=== PATIENT | male | born 1945 | race African-American/Black ===

== ENCOUNTER 2018-06-29 10:48 | Inpatient (IN) ==
[2018-06-29] MEDS ORDERED: Ampicillin/Sulbactam Inj 3 GM in Sodium Chloride 0.9% Inj 100 ML IV.SIG ONE (11:18)
[2018-06-29] MEDS ORDERED: Ketorolac Inj 30 MG/ML (IVP) Vial IV.PUSH ONE (11:18)
--- NOTE | 2018-06-29 11:39 | ED ---
HPI General Chief Complaint: Neck Pain/Injury Stated Complaint: facial swelling Time Seen by Provider: 06/29/18 11:12 Source: patient Mode of arrival: ambulatory Limitations: no limitations History of Present Illness HPI Narrative: 73-year-old male the presents to the ED for evaluation of left- sided neck swelling and jaw swelling. Patient has had this for about 3 days now. Per patient has had some fever. Per family has been somewhat lethargic and not eating well. He does have a history of diabetes. No history of injury or trauma. Family is concerned because the left side of the face especially the neck is getting more swollen. He has not seen anybody for this. Not taken the antibiotics. Pain per patient is 6 out of 10 especially with opening and closing the jaw. No history of this in the past. No chest pain or shortness of breath. No nausea or vomiting. Related Data Home Medications Medication Instructions Recorded Confirmed amlodipine-benazepril 1 cap PO DAILY 06/29/18 06/29/18 aspirin [Aspir-Low] 81 mg PO DAILY 06/29/18 06/29/18 atorvastatin 10 mg PO QPM 06/29/18 06/29/18 donepezil 5 mg PO QPM 06/29/18 06/29/18 empagliflozin-linagliptin 1 tab PO QAM 06/29/18 06/29/18 [Glyxambi] ergocalciferol (vitamin D2) 50,000 unit PO QWEEK 06/29/18 06/29/18 [Vitamin D2] iron fum,ps cmplx-vit C-niacin 1 cap PO DAILY 06/29/18 06/29/18 [Integra] pantoprazole 40 mg PO DAILY 06/29/18 06/29/18 paroxetine HCl 30 mg PO DAILY 06/29/18 06/29/18 pioglitazone 45 mg PO DAILY 06/29/18 06/29/18 Allergies Allergy/AdvReac Type Severity Reaction Status Date / Time No Known Allergies Allergy Unverified 06/29/18 11:11 Review of Systems ROS: all other systems reviewed are negative [facility], [facility] Medical History Medical History Depression (Acute) Diabetes mellitus (Acute) Gastric ulcer (Acute) HTN (hypertension) (Acute) History of endoscopy (Acute) Surgical History Surgical History History of arthroscopy of right knee (Acute) Hx of colonoscopy (Acute) Family History Family History Father Glaucoma Type 2 diabetes mellitus HTN (hypertension) PVD (peripheral vascular disease) Mother Glaucoma Type 2 diabetes mellitus HTN (hypertension) Social History Social History Substance History: No History of Abuse Smoking Status: Never smoker How Often Do You Have a Drink Containing Alcohol: 2 to 3 times a week Recent Travel in [facility] within the Last 8 Weeks: No Recent Out of Country Travel within the Last 8 Weeks: No Immunization History Tetanus Immunization: >5 Years Hx Influenza Vaccine This Season: Yes Exam Narrative Exam Narrative: GENERAL: Well appearing SKIN: Focused skin assessment warm/dry. HEAD: Atraumatic. Normocephalic. EYES: Pupils equal and round. No scleral icterus. No injection or drainage. ENT: No nasal bleeding or discharge. Mucous membranes pink and moist. Tongue is midline. No blood deviation. Patient does have what appears to be soft tissue swelling on the left side of the cheek as well as on the lower aspect of the mandible. Patient has what appears to be 4 cm induration on the area just below the left mandible. Very hard to touch. Tender. Skin itself appears to be intact. Appears to be deeper. Some lymphadenopathy noted. Inside the mouth there does appear to be some purulence coming out of the left mid cheek and patient does appear to have pertinent gland tenderness to palpation on the left side. NECK: Trachea midline. No JVD. CARDIOVASCULAR: Regular rate and rhythm. No murmur appreciated. RESPIRATORY: No accessory muscle use. Clear to auscultation. Breath sounds equal bilaterally. GASTROINTESTINAL: Abdomen soft, non-tender, nondistended. Hepatic and splenic margins not palpable. MUSCULOSKELETAL: No obvious deformities. No clubbing. No cyanosis. No edema. NEUROLOGICAL: Awake and alert. No obvious cranial nerve deficits. Motor grossly within normal limits. Normal speech. PSYCHIATRIC: Appropriate mood and affect; insight and judgment normal. Course Initial Documented Vital Signs Temperature 98.4 F 06/29/18 10:53 Pulse Rate 92 H 06/29/18 10:53 Respiratory Rate 20 06/29/18 10:53 Blood Pressure 120/63 06/29/18 10:53 Pulse Oximetry 97 06/29/18 10:53 Last Documented Vital Signs Temperature 98.4 F 06/29/18 10:53 Pulse Rate 70 08/29/18 14:00 Respiratory Rate 18 06/29/18 14:00 Blood Pressure 105/58 L 06/29/18 14:00 Pulse Oximetry 96 06/29/18 14:00 Medical Decision Making MDM Narrative Medical decision making narrative: 73-year-old male the presents to the ED for evaluation of left-sided neck pain and swelling. Patient was properly examined and was found to have signs and symptoms consistent with appears to be possible abscess versus Parotid gland infection versus sialoadenitis. Labs and imaging order. IV antibiotics started, given Toradol. Labs and imaging showed what appears to be a peritonsillar abscess as well as a submandibular abscess. Vital cell count highly limited in what appears to be acute kidney injury until this could be chronic secondary to the patient's diabetes. Because of the 2 abscesses as well as the significantly elevated white blood cell count of the recommend admission for further evaluation and treatment. Patient and family agree with this. Case discussed with Dr. Beal agrees admission to his service. My attending Dr. Hernandez was made aware of findings and agrees with plan. Medical Screen Exam Complete: Yes Emergency Medical Condition: Yes Differential Diagnosis Differential Diagnosis: Parotitis versus cellulitis versus dental abscess Medical Records Medical records reviewed: Yes I reviewed the patient's medical records. Lab Data Lab results reviewed: Yes I reviewed the patient's lab results. Result diagrams: 06/29/18 11:28 06/29/18 11:28 Lab Results 06/29/18 06/29/18 06/29/18 Range/Units 11:28 11:28 11:28 WBC 21.1 H (4.0-11.0) th/mm3 RBC 3.31 L (4.50-5.90) mil/mm3 Hgb 11.0 L (13.0-17.0) gm/dL Hct 31.6 L (39.0-51.0) % MCV 95.4 (80.0-100.0) fL MCH 33.3 (27.0-34.0) pg MCHC 34.9 (32.0-36.0) % RDW 19.7 H (11.6-17.2) % Plt Count 793 H (150-450) th/mm3 MPV 9.7 (7.0-11.0) fL Neut % (Auto) 90.2 H (16.0-70.0) % Lymph % (Auto) 4.1 L (9.0-44.0) % [place] % (Auto) 5.3 (0.0-8.0) % Eos % (Auto) 0.2 (0.0-4.0) % Baso % (Auto) 0.2 (0.0-2.0) % Neut # (Auto) 19.1 H (1.8-7.7) th/mm3 Lymph # (Auto) 0.9 L (1.0-4.8) th/mm3 [place] # (Auto) 1.1 H (0.0-0.9) th/mm3 Eos # (Auto) 0.0 (0.0-0.4) th/mm3 Baso # (Auto) 0.0 (0.0-0.2) th/mm3 WBC Differential . Differential Comment Auto diff final Sodium 137 (136-145) meq/L Potassium 4.1 (3.5-5.1) meq/L Chloride 102 (98-107) meq/L Carbon Dioxide 22.4 (21.0-32.0) meq/L Anion Gap 13 (5-15) meq/L BUN 43 H (7-18) mg/dL Creatinine 1.42 H (0.60-1.30) mg/dL Estimated GFR 59 L (>89) mL/min Random Glucose 291 H (74-106) mg/dL Lactic Acid 1.1 (0.4-2.0) mmol/L Calcium 9.8 (8.5-10.1) mg/dL Imaging Data Attestation: I personally reviewed and interpreted this imaging study as follows : Radiologist's impression: Face CT 06/29/18 11:18 CONCLUSION: 1. There is an elongated rim-enhancing collection involving the left nasopharyngeal and oropharyngeal region characteristic of a peritonsillar abscess extending over several centimeters. 2. Is also an abscess is suspected in the region of the left submandibular gland with adjacent reactive adenopathy. Discharge Plan Discharge Disposition Patient Disposition: 30 Still Patient Discharge Details Diagnosis: Abscess, peritonsillar, Abscess of submandibular gland, BILL (acute kidney injury) Physicians Team ED Provider: Gold Bob ED Midlevel Provider: Luis San Primary Care Provider: Jag Cruz III Attending Provider: Navjot Beal Other Providers: Ran Sofia Discharge Interventions Interventions: Vital Signs Last Done: 06/29/18 14:00 Status ED Status: Admitted Patient
[2018-06-29 12:11] LABS: Baso % (Auto) 0.2 % (0.0-2.0); Eos % (Auto) 0.2 % (0.0-4.0); Hematocrit 31.6 % (39.0-51.0); Lymph # (Auto) 0.9 th/mm3 (1.0-4.8); Lymph % (Auto) 4.1 % (9.0-44.0); Mean Corpuscular HGB Conc 34.9 % (32.0-36.0); Mean Corpuscular Hemoglobin 33.3 pg (27.0-34.0); Mean Corpuscular Volume 95.4 fL (80.0-100.0); Mean Platelet Volume 9.7 fL (7.0-11.0); Mono # (Auto) 1.1 th/mm3 (0.0-0.9); Mono % (Auto) 5.3 % (0.0-8.0); Neut # (Auto) 19.1 th/mm3 (1.8-7.7); Neut % (Auto) 90.2 % (16.0-70.0); Platelet Count 793 th/mm3 (150-450); Red Blood Count 3.31 mil/mm3 (4.50-5.90); Red Cell Distribution Width 19.7 % (11.6-17.2); White Blood Count 21.1 th/mm3 (4.0-11.0)
[2018-06-29 12:44] LABS: Calcium 9.8 mg/dL (8.5-10.1); Carbon Dioxide 22.4 meq/L (21.0-32.0); Potassium 4.1 meq/L (3.5-5.1)
[2018-06-29] MEDS ORDERED: Sod Chloride 0.9% Inj 1,000 ML IV.CONT ONE (12:46)
--- NOTE | 2018-06-29 13:22 | CT ---
EXAM DATE: 06/29/2018 1:15 PM EDT AGE/SEX: 73 years / Male INDICATIONS: Left facial swelling with bad tooth CLINICAL DATA: This is the patient's initial encounter. Patient reports that signs and symptoms have been present for 2 days and indicates a pain score of 6/10. MEDICAL/SURGICAL HISTORY: Diabetes. Hypertension. None. RADIATION DOSE: 7.56 CTDI (mGy) COMPARISON: No prior exams available for comparison. TECHNIQUE: Contiguous images in the axial and coronal planes were obtained using helical multirow de tector technique with 70 ml Omnipaque 350 (iohexol) nonionic water-soluble contrast as a single exam dose. Using automated exposure control and adjustment of the mA and/or kV according to patient size , radiation dose was kept as low as reasonably achievable to obtain optimal diagnostic quality images . DICOM format image data is available electronically for review and comparison. FINDINGS: Beginning in the nasopharyngeal soft tissues and extending inferiorly on the left along the tonsillar pillar is a rim-enhancing loculated fluid collection measuring up to 4.3 cm in AP dimension and 2.2 cm in transverse dimension most concerning for a peritonsillar abscess. There is also identified amador ration of the subcutaneous tissues in the left perimandibular region, reactive subcentimeter submenta l lymph nodes, and a hypodense rim-enhancing collection in the left submandibular gland measuring 2 x 1.2 cm in transverse and AP dimension. There are also more prominent level 2A nodes seen up to 1.1 c m in short axis dimension. Paranasal sinuses are well aerated. There is slight relative narrowing and deviation of the oropharyngeal airway to the right of midline seen best on axial image 51 of series 2. There is streak artifact from dental fillings. CONCLUSION: 1. There is an elongated rim-enhancing collection involving the left nasopharyngeal and oropharyngea l region characteristic of a peritonsillar abscess extending over several centimeters. 2. Is also an abscess is suspected in the region of the left submandibular gland with adjacent react gay adenopathy. Electronically signed by: Jenaro Spencer MD 06/29/2018 1:20 PM EDT
[2018-06-29] MEDS ORDERED: Acetaminophen 325 MG Tablet PO PRN (14:07)
[2018-06-29] MEDS ORDERED: Bisacodyl 10 MG Supp RECTAL PRN (14:07)
[2018-06-29] MEDS: Sod Chloride 0.9% Inj 1,000 ML IV.CONT SCH ×2 (14:25→23:09)
--- NOTE | 2018-06-29 14:30 | P.HPIM ---
History of Present Illness Service: [facility] Primary Care Physician: Jag Cruz III, MD History of Present Illness: This 73-year-old with past history of type 2 diabetes, gastric ulcer, hypertension, and depression. He is presenting to the clinic today 4 days of feeling ill. On 06/25/18 started to develop a sore throat and feeling mildly feverish. Then 06/26/18 his fever greatly worsened and he started to develop some swelling in the back of throat. He reports that before any of this happened he did have some tooth pain on the left side of his face. Over the next several days the swelling in his throat as well as his face continued to worsen. Never became nauseated or vomiting. Started developing difficulty with swallowing, he started becoming mildly confused especially yesterday. Started feeling very weak over the last couple days and unwilling to get out of bed. Has been sweating profusely and feeling feverish. Denies any chills. His voice has become raspy over the last several days. This morning was 1 of the rare times that he actually ate some food over the last couple days. Throughout this process is been getting worsening headaches as well that he attributed to migraines, as well as feeling very sleepy and fatigued throughout the whole timeframe. Of note on the ED CT of the face is concerning for mandibular abscess as well as peritonsillar abscess. - Diagnosis (1) Peritonsillar abscess (2) Mandibular abscess (3) HTN (hypertension) (4) Type 2 diabetes mellitus (5) Depression Inpatient Certification: I certify that the inpatient services were ordered in accordance with Medicare regulations governing the order. This includes certification that hospital inpatient services are reasonable and necessary and in the case of services not specified as inpatient-only under 42 CFR 419.22(n), that they are appropriately provided as inpatient services in accordance to with the 2-midnight benchmark under 43 CFR 412.3(e) Estimated Total Length of Stay (Days): 5 Plans for Post Hospital Care: Home Review of Systems Constitutional: Reports anorexia, Reports body ache(s), Reports excessive sweating, Reports fatigue, Reports fever(s), Reports headache(s), Reports lack of energy, Reports malaise, Reports weakness, Denies chills, Denies increased appetite Eyes: Denies blurry vision, Denies change in vision, Denies double vision, Denies discharge Ears, Nose, Mouth, and Throat: Reports change in voice, Reports dental pain, Reports difficulty swallowing, Reports ear pain, Reports facial pain, Reports headache(s), Reports hoarseness, Reports neck pain, Reports sore throat, Reports throat swelling, Denies bleeding gums, Denies dry mouth, Denies nasal discharge, Denies sinus pain, Denies sinus pressure, Denies tongue swelling Cardiovascular: Reports chest pain (more anxiety type pain), Denies fainting, Denies irregular heart rhythm, Denies radiating jaw, neck or arm pain, Denies rapid, pounding, or irregular heartbeat, Denies shortness of breath with activity Respiratory: Reports cough, Denies pain with cough, Denies shortness of breath, Denies wheezing Gastrointestinal: Reports difficulty swallowing, Reports pain with swallowing, Denies abdominal pain, Denies black, tarry stools, Denies bloating, Denies constipation, Denies nausea, Denies vomiting Musculoskeletal: Denies abnormal walking Neurologic: Reports abnormal speech (due to swelling), Denies abnormal hearing, Denies abnormal walking, Denies loss of vision, Denies numbness, Denies radiating pain, Denies restless legs Psychiatric: Reports anxiety, Reports depression PMFSH - History History Provided By: Patient, Significant Other - Medical History Medical History: Medical History (Last Updated 06/29/18 @ 14:26 by Navjot Beal MD) Depression Diabetes mellitus Gastric ulcer HTN (hypertension) History of endoscopy - Surgical History Surgical History: Surgical History (Last Reviewed 06/29/18 @ 14:27 by Navjot Beal MD) History of arthroscopy of right knee Hx of colonoscopy - Family History Family History: Family History (Last Updated 06/29/18 @ 14:28 by Navjot Beal MD) Father Glaucoma Type 2 diabetes mellitus HTN (hypertension) PVD (peripheral vascular disease) Mother Glaucoma Type 2 diabetes mellitus HTN (hypertension) - Tobacco History Smoking Status: Never smoker - Alcohol History How Often Do You Have a Drink Containing Alcohol: 2 to 3 times a week - Substance Use History Substance History: No History of Abuse - Travel History Recent Travel in the [place] Within the Last 8 Weeks: No Recent Travel Out of the Country Within the Last 8 Weeks: No - Immunization History Tetanus Immunization: >5 Years Hx Influenza Vaccine This Season: Yes Medications and Allergies Active Medications: Active Medications Acetaminophen (Tylenol) 650 mg PO Q4H PRN PRN Reason: Temp > 100.4 Al Hydroxide/Mg Hydroxide (Milk Of Magnesia Liq) 30 ml PO Q12H PRN PRN Reason: Mild Constipation Aspirin (Ecotrin) 81 mg PO DAILY SALAZAR Atorvastatin Calcium (Lipitor) 10 mg PO QPM [facility] Bisacodyl (Dulcolax Supp) 10 mg RECTAL DAILY PRN PRN Reason: SEVERE CONSITIPATION Clonidine HCl (Catapres) 0.1 mg PO Q6H PRN PRN Reason: SEE LABEL COMMENTS Sodium Chloride (Ns Inj) 1,000 mls @ 75 mls/hr IV.CONT .[id number] [facility] Lactulose (Lactulose Liq) 30 ml PO DAILY PRN PRN Reason: SEVERE CONSITIPATION Non-Formulary Medication (Amlodipine-Benazepril [Amlodipine-Benazepril]) 1 cap PO DAILY [facility] Non-Formulary Medication (Paroxetine Hcl [Paroxetine Hcl]) 30 mg PO DAILY [facility] Ondansetron HCl (Zofran Inj) 4 mg IV.PUSH Q6H PRN PRN Reason: NAUSEA OR VOMITING Pantoprazole Sodium (Protonix) 40 mg PO DAILY [facility] Senna/Docusate Sodium (Anna-Colace) 1 tab PO BID [facility] Sennosides (Senokot) 17.2 mg PO Q12H PRN PRN Reason: Moderate Constipation Temazepam (Restoril) 15 mg PO HS PRN PRN Reason: INSOMNIA Allergies Allergy/AdvReac Type Severity Reaction Status Date / Time No Known Allergies Allergy Unverified 06/29/18 11:11 Home Medications Medication Instructions Recorded Confirmed Type amlodipine-benazepril 1 cap PO DAILY 06/29/18 06/29/18 History aspirin [Aspir-Low] 81 mg PO DAILY 06/29/18 06/29/18 History atorvastatin 10 mg PO QPM 06/29/18 06/29/18 History donepezil 5 mg PO QPM 06/29/18 06/29/18 History empagliflozin-linagliptin 1 tab PO QAM 06/29/18 06/29/18 History [Glyxambi] ergocalciferol (vitamin D2) 50,000 unit PO QWEEK 06/29/18 06/29/18 History [Vitamin D2] iron fum,ps cmplx-vit C-niacin 1 cap PO DAILY 06/29/18 06/29/18 History [Integra] pantoprazole 40 mg PO DAILY 06/29/18 06/29/18 History paroxetine HCl 30 mg PO DAILY 06/29/18 06/29/18 History pioglitazone 45 mg PO DAILY 06/29/18 06/29/18 History Exam Vital signs: Vital Signs 06/29/18 10:53 06/29/18 11:16 06/29/18 12:57 Temperature 98.4 F Pulse Rate 92 H 85 80 Respiratory Rate 20 18 18 Blood Pressure 120/63 126/63 114/59 L Pulse Oximetry 97 98 98 Intake & Output 06/28/18 06/29/18 06/29/18 18:59 06:59 18:59 Intake Total 1100 / 1100 Balance 1100 / 1100 Weight 74.843 kg Intake: IV 1100 / 1100 NS Inj 1,000 ML @ 1000 mls/hr 1000 / 1000 IV.CONT ONCE ONE Rx#:[id number] Unasyn Inj 3 GM In NS Inj 100 100 / 100 ML @ 200 mls/hr IV.SIG ONCE ONE Rx#:[id number] - Constitutional no acute distress, thin, cooperative - Routine HEENT Exam Head: Present: normocephalic, atraumatic Eye: Present: EOMI, PERRL. Absent: periorbital ecchymosis, periorbital swelling ENT: Present: mucous membranes moist, external ear normal, TM's clear bilaterally - Detailed ENT Exam Oropharynx: Present: post pharyngeal edema, post pharyngeal erythema. Absent: drooling Oral mucosa: Present: moist Tonsil: Left tonsillar exudate, Left peritonsillar mass, Bilateral tonsillar erythema Dentition: Present: dental caries, dental tenderness, gingival enlargement - Routine Neck Exam Present: supple, full ROM, swelling (madibular swelling), trachea midline - Routine Chest/Breast/Axilla Exam Chest wall: Absent: tenderness Axillae: Absent: lymphadenopathy, mass, tenderness - Routine Respiratory Exam Present: CTA bilaterally. Absent: accessory muscle use, wheezes, distant breath sounds - Routine Cardiovascular Exam Present: RRR. Absent: murmur - Routine Abdominal Exam Present: soft, normoactive bowel sounds. Absent: tenderness, distended - Routine Extremities Exam Present: full ROM, pulses intact, normal capillary refill. Absent: cyanosis, clubbing, edema, calf tenderness, Jarvis's sign, joint swelling - Routine Skin Exam Present: intact, dry, scars. Absent: rash - Routine Neurological Exam Present: alert, oriented X3, CN II-XII intact. Absent: altered mental status Results - Labs CBC & Chem 7: 06/29/18 11:28 06/29/18 11:28 Labs: Short CBC 06/29/18 Range/Units 11:28 WBC 21.1 H (4.0-11.0) th/mm3 Hgb 11.0 L (13.0-17.0) gm/dL Hct 31.6 L (39.0-51.0) % Plt Count 793 H (150-450) th/mm3 BMP 06/29/18 11:28 Sodium 137 Potassium 4.1 Chloride 102 Carbon Dioxide 22.4 BUN 43 H Creatinine 1.42 H Calcium 9.8 - Imaging Impressions Face CT 06/29/18 11:18 CONCLUSION: 1. There is an elongated rim-enhancing collection involving the left nasopharyngeal and oropharyngeal region characteristic of a peritonsillar abscess extending over several centimeters. 2. Is also an abscess is suspected in the region of the left submandibular gland with adjacent reactive adenopathy. Caprini VTE Risk Assessment Caprini VTE Risk Assessment: Moderate/High Risk (score >= 2) Caprini Risk Assessment Model: Point Value = 1 Point Value = 2 Point Value = 3 Point Value = 5 Age 41-60 Minor surgery BMI > 25 kg/m2 Swollen legs Varicose veins or History of unexplained or recurrent spontaneous Oral contraceptives or hormone replacement Sepsis (< 1 month) Serious lung disease, including pneumonia (< 1 month) Abnormal pulmonary function Acute myocardial infarction Congestive heart failure (< 1 month) History of inflammatory bowel disease Medical patient at bed rest Age 61-74 Arthroscopic surgery Major open surgery (> 45 min) Laparoscopic surgery (> 45 min) Malignancy Confined to bed (> 72 hours) Immobilizing plaster cast Central venous access Age >= 75 History of VTE Family history of VTE Factor V Leiden Prothrombin [id number] Lupus anticoagulant Anticardiolipin antibodies Elevated serum homocysteine Heparin-induced thrombocytopenia Other congenital or acquired thrombophilia Stroke (< 1 month) Elective arthroplasty Hip, pelvis, or leg fracture Acute spinal cord injury (< 1 month) Prophylaxis Regimen: Total Risk Factor Score Risk Level Prophylaxis Regimen 0-1 Low Early ambulation 2 Moderate Order ONE of the following: *Sequential Compression Device (SCD) *Heparin 5000 units SQ BID 3-4 Higher Order ONE of the following medications: *Heparin 5000 units SQ TID *Enoxaparin/Lovenox 40 mg SQ daily (WT < 150 kg, CrCl > 30 mL/min) *Enoxaparin/Lovenox 30 mg SQ daily (WT < 150 kg, CrCl > 10-29 mL/min) *Enoxaparin/Lovenox 30 mg SQ BID (WT < 150 kg, CrCl > 30 mL/min) AND/OR *Sequential Compression Device (SCD) 5 or more Highest Order ONE of the following medications: *Heparin 5000 units SQ TID (Preferred with Epidurals) *Enoxaparin/Lovenox 40 mg SQ daily (WT < 150 kg, CrCl > 30 mL/min) *Enoxaparin/Lovenox 30 mg SQ daily (WT < 150 kg, CrCl > 10-29 mL/min) *Enoxaparin/Lovenox 30 mg SQ BID (WT < 150 kg, CrCl > 30 mL/min) AND *Sequential Compression Device (SCD) Assessment and Plan - Assessment (1) Peritonsillar abscess Code(s): J36 - Peritonsillar abscess Status: Acute (2) Mandibular abscess Code(s): M27.2 - Inflammatory conditions of jaws Status: Acute (3) HTN (hypertension) Code(s): I10 - Essential (primary) hypertension Status: Chronic (4) Type 2 diabetes mellitus Code(s): E11.9 - Type 2 diabetes mellitus without complications Status: Chronic (5) Depression Code(s): F32.9 - Major depressive disorder, single episode, unspecified Status : Chronic - Plan This 73-year-old with past history of type 2 diabetes, gastric ulcer, hypertension, and depression. Being admitted for mandibular abscess and peritonsillar abscess. 1. Peritonsillar and mandibular abscess -Per report above CT showing both peritonsillar and mandibular abscesses. -Consulted ENT, recommendations appreciated -We will continue Augmentin at this time -Following wound cultures -Following blood cultures -Monitoring labs 2. Leukocytosis -White blood cell count elevated at 21.1 -Vitals within normal limits -Lactic acid is 1.1 within normal limits -Antibiotics as above -Continue to monitor patient's vitals -Continue to monitor labs 3. Type 2 diabetes -Holding home medications -Place on insulin sliding scale -Glucose monitoring per protocol 4. Hypertension -Continue home medication of amlodipine-benazepril -Clonidine per protocol 5. Gastric Ulcer -Continue Protonix 6. 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
[2018-06-29] MEDS ORDERED: Dextrose 50% in Water 50 ML Vial IV.PUSH PRN (14:34)
[2018-06-29] MEDS: Insulin NovoLOG Aspart Correctional Sugar Inj SQ SCH ×2 (17:50→21:46)
[2018-06-29] MEDS: Ampicillin/Sulbactam Inj 3 GM in Sodium Chloride 0.9% Inj 100 ML IV.SIG SCH ×2 (17:50→23:08)
[2018-06-29] MEDS ORDERED: Temazepam 15 MG Capsule PO PRN (21:00)
[2018-06-29] MEDS: Senna/Docusate Sodium 8.6/50 MG Tablet PO SCH (21:45)
[2018-06-29] MEDS: Acetaminophen 325 MG Tablet PO PRN (23:07)
[2018-06-30 05:44] LABS: Baso % (Auto) 0.3 % (0.0-2.0); Eos # (Auto) 0.1 th/mm3 (0.0-0.4); Eos % (Auto) 0.6 % (0.0-4.0); Hematocrit 30.9 % (39.0-51.0); Hemoglobin 10.1 gm/dL (13.0-17.0); Lymph # (Auto) 1.3 th/mm3 (1.0-4.8); Lymph % (Auto) 7.5 % (9.0-44.0); Mean Corpuscular HGB Conc 32.8 % (32.0-36.0); Mean Corpuscular Hemoglobin 31.2 pg (27.0-34.0); Mean Platelet Volume 9.1 fL (7.0-11.0); Neut # (Auto) 14.7 th/mm3 (1.8-7.7); Neut % (Auto) 85.6 % (16.0-70.0); Platelet Count 749 th/mm3 (150-450); Red Blood Count 3.25 mil/mm3 (4.50-5.90); Red Cell Distribution Width 19.6 % (11.6-17.2); White Blood Count 17.2 th/mm3 (4.0-11.0)
[2018-06-30 06:24] LABS: Alanine Aminotransferase 18 U/L (12-78); Alkaline Phosphatase 85 U/L (45-117); Anion Gap 12 meq/L (5-15); Aspartate Aminotransferase 34 U/L (15-37); Blood Urea Nitrogen 32 mg/dL (7-18); Calcium 9.3 mg/dL (8.5-10.1); Carbon Dioxide 21.6 meq/L (21.0-32.0); Chloride 110 meq/L (98-107); Glomerular Filtration Rate Greater Than 89 mL/min (>89); Glucose,Random 154 mg/dL (74-106); Potassium 3.8 meq/L (3.5-5.1); Sodium 144 meq/L (136-145); Total Protein 7.5 g/dL (6.4-8.2)
[2018-06-30] MEDS: Sod Chloride 0.9% Inj 1,000 ML IV.CONT SCH ×2 (06:30→17:55)
[2018-06-30] MEDS: Ampicillin/Sulbactam Inj 3 GM in Sodium Chloride 0.9% Inj 100 ML IV.SIG SCH ×4 (06:31→23:52)
[2018-06-30] MEDS: Insulin NovoLOG Aspart Correctional Sugar Inj SQ SCH ×4 (08:51→22:52)
[2018-06-30] MEDS: Lisinopril 20 MG Tablet PO SCH (08:51)
[2018-06-30] MEDS: Acetaminophen 325 MG Tablet PO PRN ×3 (08:51→22:51)
[2018-06-30] MEDS: Senna/Docusate Sodium 8.6/50 MG Tablet PO SCH ×2 (08:53→22:51)
[2018-06-30] MEDS: amLODIPine 5 MG Tablet PO SCH (08:53)
--- NOTE | 2018-06-30 12:11 | P.PN ---
Subjective Interval history: Nursing denies any deterioration since last night. She is thinks the swelling has progressed to the right side. Patient's daughter says that he has had tooth pain prior to admission, patient is to his lower back molars in terms of his pain. Physical Exam Vital signs: Vital Signs 06/29/18 12:57 06/29/18 14:00 06/29/18 16:02 Temperature Pulse Rate 80 70 72 Respiratory Rate 18 18 20 Blood Pressure 114/59 L 105/58 L 126/61 Pulse Oximetry 98 96 96 06/29/18 18:00 06/29/18 20:00 06/30/18 00:00 Temperature 97.9 F 98.5 F 97.4 F L Pulse Rate 81 82 74 Respiratory Rate 20 18 18 Blood Pressure 143/65 H 126/59 L 132/62 Pulse Oximetry 97 93 L 93 L 06/30/18 04:00 06/30/18 08:00 Temperature 97.3 F L 98.5 F Pulse Rate 76 74 Respiratory Rate 18 20 Blood Pressure 136/66 135/61 Pulse Oximetry 92 L 94 L Intake & Output 06/29/18 06/30/18 06/30/18 18:59 06:59 18:59 Intake Total 2200 / 2200 100 / 100 100 / 100 Balance 2200 / 2200 100 / 100 100 / 100 Weight 68.1 kg 68.6 kg Intake: IV 2200 / 2200 100 / 100 100 / 100 NS Inj 1,000 ML @ 75 mls/hr IV. 1999 / 1999 CONT .[id number] SAL[facility]AR Rx#:[id number] Unasyn Inj 3 GM In NS Inj 100 200 / 200 100 / 100 100 / 100 ML @ 200 mls/hr IV.SIG Q6H [facility] Rx#:[id number] Other: # Voids 0 Weight On Admission 68.1 kg Narrative: Has partial trismus when I tried to actively open his jaw Has poor dentition No follow odor noted, No obvious abscess within oral cavity visualized on my examination Results - Labs CBC & Chem 7: 06/30/18 04:42 06/30/18 04:42 Laboratory Results - last 24 hr 06/29/18 06/29/18 06/29/18 11:28 11:28 17:41 WBC 21.1 H RBC 3.31 L Hgb 11.0 L Hct 31.6 L MCV 95.4 MCH 33.3 MCHC 34.9 RDW 19.7 H Plt Count 793 H MPV 9.7 Neut % (Auto) 90.2 H Lymph % (Auto) 4.1 L Bledsoe % (Auto) 5.3 Eos % (Auto) 0.2 Baso % (Auto) 0.2 Neut # (Auto) 19.1 H Lymph # (Auto) 0.9 L Bledsoe # (Auto) 1.1 H Eos # (Auto) 0.0 Baso # (Auto) 0.0 WBC Differential . Differential Comment Auto diff final Sodium 137 Potassium 4.1 Chloride 102 Carbon Dioxide 22.4 Anion Gap 13 BUN 43 H Creatinine 1.42 H Estimated GFR 59 L POC Glucose 191 H Random Glucose 291 H Calcium 9.8 Total Bilirubin AST ALT Alkaline Phosphatase Total Protein Albumin 06/29/18 06/30/18 06/30/18 20:40 04:42 04:42 WBC 17.2 H RBC 3.25 L Hgb 10.1 L Hct 30.9 L MCV 95.0 MCH 31.2 MCHC 32.8 RDW 19.6 H Plt Count 749 H MPV 9.1 Neut % (Auto) 85.6 H Lymph % (Auto) 7.5 L Bledsoe % (Auto) 6.0 Eos % (Auto) 0.6 Baso % (Auto) 0.3 Neut # (Auto) 14.7 H Lymph # (Auto) 1.3 Bledsoe # (Auto) 1.0 H Eos # (Auto) 0.1 Baso # (Auto) 0.0 WBC Differential . Differential Comment Auto diff final Sodium 144 Potassium 3.8 Chloride 110 H D Carbon Dioxide 21.6 Anion Gap 12 BUN 32 H Creatinine 0.97 Estimated GFR Greater than 89 POC Glucose 174 H Random Glucose 154 H D Calcium 9.3 Total Bilirubin 1.3 H AST 34 ALT 18 Alkaline Phosphatase 85 Total Protein 7.5 Albumin 3.0 L 06/30/18 06/30/18 08:19 11:48 WBC RBC Hgb Hct MCV MCH MCHC RDW Plt Count MPV Neut % (Auto) Lymph % (Auto) Bledsoe % (Auto) Eos % (Auto) Baso % (Auto) Neut # (Auto) Lymph # (Auto) Bledsoe # (Auto) Eos # (Auto) Baso # (Auto) WBC Differential Differential Comment Sodium Potassium Chloride Carbon Dioxide Anion Gap BUN Creatinine Estimated GFR POC Glucose 173 H 174 H Random Glucose Calcium Total Bilirubin AST ALT Alkaline Phosphatase Total Protein Albumin Microbiology 06/29/18 11:28 Blood - Peripheral Aerobic Blood Culture - Preliminary No growth in 1 day 06/29/18 11:28 Blood - Peripheral Anaerobic Blood Culture - Preliminary No growth in 1 day 06/29/18 11:28 Blood - Peripheral Aerobic Blood Culture - Preliminary No growth in 1 day 06/29/18 11:28 Blood - Peripheral Anaerobic Blood Culture - Preliminary No growth in 1 day - Imaging Impressions Face CT 06/29/18 11:18 CONCLUSION: 1. There is an elongated rim-enhancing collection involving the left nasopharyngeal and oropharyngeal region characteristic of a peritonsillar abscess extending over several centimeters. 2. Is also an abscess is suspected in the region of the left submandibular gland with adjacent reactive adenopathy. Assessment and Plan - Assessment (1) Peritonsillar abscess Code(s): J36 - Peritonsillar abscess Status: Acute (2) Mandibular abscess Code(s): M27.2 - Inflammatory conditions of jaws Status: Acute (3) HTN (hypertension) Code(s): I10 - Essential (primary) hypertension Status: Chronic (4) Type 2 diabetes mellitus Code(s): E11.9 - Type 2 diabetes mellitus without complications Status: Chronic (5) Depression Code(s): F32.9 - Major depressive disorder, single episode, unspecified Status : Chronic - Plan This 73-year-old with past history of type 2 diabetes, gastric ulcer, hypertension, and depression. Being admitted for mandibular abscess and peritonsillar abscess. sepsis 2/2 to peritonsillar and mandibular abscess -Per report above CT showing both peritonsillar and mandibular abscesses. -ENT following, discussed case with oral maxillofacial surgery, will evaluate the patient. 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
--- NOTE | 2018-06-30 12:13 | MB ---
cc: Ran Sofia MD DATE: 06/30/2018 CHIEF COMPLAINT: Left facial infection, left peritonsillar abscess. HISTORY OF PRESENT ILLNESS: The patient is a pleasant 73-year-old male with a 1-year history of dental issues. He has been having difficulty having his dental plate to fit correctly. It has been causing a lot of irritation. He states that he has not worn it in the recent months. However, he still obviously has dental concerns. He presented to the hospital yesterday with 4 days of feeling ill with a sore throat and tooth pain and pressure on the left side of the face. Over the next several days the swelling in the throat and his face continued to worsen, and his voice became raspy. In the emergency room, a CT of face was concerning for peritonsillar abscess and possible early submandibular abscess. He was admitted with IV antibiotics. The patient notes he had no shortness of breath overnight and was talking freely without any effort. He feels as if the mass is relatively unchanged since yesterday's antibiotics were started. PHYSICAL EXAMINATION: On examination, there is obvious swelling near the left mandible angle on the left side of the face. He also had some fullness in the left peritonsillar area, and on flexible fiberoptic laryngoscopy, however, the airway was noted to be patent and his vocal cords noted to be mobile. ASSESSMENT AND PLAN: Infection, left peritonsillar area and left submandibular area. CAT scan shows both peritonsillar abscess and early small left mandibular abscess. Of note, the floor of the mouth is currently soft. Wound cultures are being followed after the patient's multiple abscesses to consider infectious disease consult. Also, with his chronic dental issues, recommend oral surgery evaluating the patient for possible odontogenic origin. Furthermore, the patient has a history of diabetes, but if possible Decadron will judiciously be will be able to decrease the swelling of the left face. He will likely need a sliding scale of insulin if he is able to get the Decadron, if this is cleared by the home team. The patient will likely need numerous days of IV antibiotics as per his history and the amount of the swelling both in the mouth and in the neck. Appreciate oral surgery input, as well as appreciate the coordinate care of the team. Ran Sofia MD PCC/pw/ll , 07:13 AM , 07:23 AM
--- NOTE | 2018-06-30 14:55 | P.CON ---
History of Present Illness Service: Oral & Maxillofacial Surgery Consult date: 06/30/18 Requesting Physician: Juan Carlos Baker Reason for Consult: Peritonsillar abscess Primary Care Provider: Jag Cruz III, MD Chief Complaint: Left facial and neck swelling History of Present Illness: 73-year-old male with a history of depression, diabetes mellitus, hypertension presents for evaluation of a left submandibular and peritonsillar swelling. Patient reports that approximately 3 days ago when he woke up he suffered from a sore throat. He continued to progress with left sided facial swelling and difficulty swallowing and he sought care yesterday at [facility]. A CT scan was obtained which showed peritonsillar abscess extending to the submandibular region and he was admitted for IV antibiotic therapy. An oral & maxillofacial surgery consult was ordered to evaluate for an odontogenic origin. The patient reports he is having difficulty swallowing but denies any difficulty breathing. He reports that since the antibiotic therapy was started yesterday the swelling improved. He does note some intermittent swelling extending to the right side of his neck. He noted in the past some intermittent sensitivity in his dentition but denies any significant pain at this time. He denies any numbness in his jaw. Review of Systems Constitutional: Reports fatigue Eyes: Denies change in vision Ears, Nose, Mouth, and Throat: Reports bad breath, Reports change in voice, Reports difficulty swallowing, Reports facial pain, Reports headache(s), Reports pain with swallowing, Reports sore throat, Reports throat swelling Cardiovascular: Denies chest pain Respiratory: Denies shortness of breath Gastrointestinal: Denies abdominal pain PMFSH - History History Provided By: Patient, Family Member - Medical History Medical History: Medical History (Last Updated 06/29/18 @ 14:26 by Navjot Beal MD) Depression Diabetes mellitus Gastric ulcer HTN (hypertension) History of endoscopy - Surgical History Surgical History: Surgical History (Last Reviewed 06/29/18 @ 14:27 by Navjot Beal MD) History of arthroscopy of right knee Hx of colonoscopy - Family History Family History: Family History (Last Updated 06/29/18 @ 14:28 by Navjot Beal MD) Father Glaucoma Type 2 diabetes mellitus HTN (hypertension) PVD (peripheral vascular disease) Mother Glaucoma Type 2 diabetes mellitus HTN (hypertension) - Tobacco History Second Hand Smoke Exposure: No Smoking Status: Never smoker - Alcohol History How Often Do You Have a Drink Containing Alcohol: Monthly or less - Substance Use History Substance History: No History of Abuse - Travel History Recent Travel in the [place] Within the Last 8 Weeks: No Recent Travel Out of the Country Within the Last 8 Weeks: No - Immunization History Tetanus Immunization: >5 Years Hx Influenza Vaccine This Season: Yes Medications and Allergies Active Medications: Active Medications Acetaminophen (Tylenol) 650 mg PO Q4H PRN PRN Reason: fever or headache Last Admin: 06/30/18 13:41 Dose: 650 mg Al Hydroxide/Mg Hydroxide (Milk Of Magnesia Liq) 30 ml PO Q12H PRN PRN Reason: Mild Constipation Amlodipine Besylate (Norvasc) 5 mg PO DAILY [facility] Last Admin: 06/30/18 08:53 Dose: 5 mg Aspirin (Ecotrin) 81 mg PO DAILY [facility] Last Admin: 06/30/18 08:52 Dose: 81 mg Atorvastatin Calcium (Lipitor) 10 mg PO DAILY@1800 [facility] Last Admin: 06/29/18 17:50 Dose: 10 mg Bisacodyl (Dulcolax Supp) 10 mg RECTAL DAILY PRN PRN Reason: SEVERE CONSITIPATION Clonidine HCl (Catapres) 0.1 mg PO Q6H PRN PRN Reason: SEE LABEL COMMENTS Dextrose (D50w Vial) 50 ml IV.PUSH UNSCH PRN PRN Reason: PER HYPOGLYCEMIA PROTOCOL Glucagon (Glucagon Inj) 1 mg OTHER PRN PRN PRN Reason: for Hypoglycemia Protocol Sodium Chloride (Ns Inj) 1,000 mls @ 75 mls/hr IV.CONT .[id number] [facility] Last Admin: 06/30/18 06:30 Dose: Not Given Ampicillin Sodium/Sulbactam (Sodium 3 gm/ Sodium Chloride) 100 mls @ 200 mls/ hr IV.SIG Q6H [facility] Last Infusion: 06/30/18 13:30 Dose: Infused Insulin Aspart (Novolog Insulin Correctional Sugar Inj) 0 unit SQ ACHS [facility]; Protocol Last Admin: 06/30/18 13:00 Dose: 1 unit Lactulose (Lactulose Liq) 30 ml PO DAILY PRN PRN Reason: SEVERE CONSITIPATION Lisinopril (Prinivil) 40 mg PO DAILY [facility] Last Admin: 06/30/18 08:51 Dose: 40 mg Ondansetron HCl (Zofran Inj) 4 mg IV.PUSH Q6H PRN PRN Reason: NAUSEA OR VOMITING Pantoprazole Sodium (Protonix) 40 mg PO DAILY [facility] Last Admin: 06/30/18 08:53 Dose: 40 mg Paroxetine HCl (Paxil) 30 mg PO DAILY [facility] Last Admin: 06/30/18 08:53 Dose: 30 mg Senna/Docusate Sodium (Anna-Colace) 1 tab PO BID [facility] Last Admin: 06/30/18 08:53 Dose: Not Given Sennosides (Senokot) 17.2 mg PO Q12H PRN PRN Reason: Moderate Constipation Allergies Allergy/AdvReac Type Severity Reaction Status Date / Time No Known Allergies Allergy Unverified 06/29/18 11:11 Home Medications Medication Instructions Recorded Confirmed Type amlodipine-benazepril 1 cap PO DAILY 06/29/18 06/29/18 History aspirin [Aspir-Low] 81 mg PO DAILY 06/29/18 06/29/18 History atorvastatin 10 mg PO QPM 06/29/18 06/29/18 History donepezil 5 mg PO QPM 06/29/18 06/29/18 History empagliflozin-linagliptin 1 tab PO QAM 06/29/18 06/29/18 History [Glyxambi] ergocalciferol (vitamin D2) 50,000 unit PO QWEEK 06/29/18 06/29/18 History [Vitamin D2] iron fum,ps cmplx-vit C-niacin 1 cap PO DAILY 06/29/18 06/29/18 History [Integra] pantoprazole 40 mg PO DAILY 06/29/18 06/29/18 History paroxetine HCl 30 mg PO DAILY 06/29/18 06/29/18 History pioglitazone 45 mg PO DAILY 06/29/18 06/29/18 History Physical Exam Vital signs: Vital Signs 06/29/18 16:02 06/29/18 18:00 06/29/18 20:00 Temperature 97.9 F 98.5 F Pulse Rate 72 81 82 Respiratory Rate 20 20 18 Blood Pressure 126/61 143/65 H 126/59 L Pulse Oximetry 96 97 93 L 06/30/18 00:00 06/30/18 04:00 06/30/18 08:00 Temperature 97.4 F L 97.3 F L 98.5 F Pulse Rate 74 76 74 Respiratory Rate 18 18 20 Blood Pressure 132/62 136/66 135/61 Pulse Oximetry 93 L 92 L 94 L 06/30/18 13:45 Temperature 99.5 F Pulse Rate 82 Respiratory Rate 20 Blood Pressure 135/72 Pulse Oximetry 94 L Intake & Output 06/29/18 06/30/18 06/30/18 18:59 06:59 18:59 Intake Total 2200 / 2200 100 / 100 200 / 200 Balance 2200 / 2200 100 / 100 200 / 200 Weight 68.1 kg 68.6 kg Intake: IV 2200 / 2200 100 / 100 200 / 200 NS Inj 1,000 ML @ 75 mls/hr IV. 1999 CONT .[id number] [facility]AR Rx#:[id number] Unasyn Inj 3 GM In NS Inj 100 200 / 200 100 / 100 200 / 200 ML @ 200 mls/hr IV.SIG Q6H SALAZAR Rx#:[id number] Other: # Voids 0 Weight On Admission 68.1 kg Narrative: General: Well-developed, comfortable and in no apparent distress. Neurological: Alert and oriented to person, place, and time. CNV intact bilaterally. HEENT: Head/Face: Left facial edema adjacent to the mandible and submandibular region, no overlying erythema of the skin. JUMANA ~25-30 mm. Eyes: EOMI. Oral Cavity/Oropharynx: Mucosa pink and well hydrated. Fair oral hygiene. Mandibular dentition in good repair without increased sensitivity to percussion and palpation of teeth #14,17,18,19. Floor of mouth soft, non-elevated. No elevation or tenderness of the left mandibular buccal vestibule. Uvula deviated to the right. Purulence spontaneously draining from the left anterior tonsillar pillar. Neck: Induration of the left neck with overlying tenderness in the submandibular region. Cardiovascular: Regular rate. Pulmonary: Normal work of breathing on room air. Abdomen: Soft, non-tender, non-distended. Extremities: Warm, well perfused. - Additional findings Additional findings: CT Facial displays a rim enhancing fluid collection in the posterior oropharynx along the left tonsillar region which extends inferiorly and obliquely to the submandibular region. No periapical radiolucenies or perforation of the mandibular cortices appreciated. No evidence of gross carious dentition in the left mandible. Assessment and Plan - Assessment (1) Peritonsillar abscess Code(s): J36 - Peritonsillar abscess Status: Acute - Plan 73 y/o M with a history of DM, HTN, depression and a 4 day history of sore throat and left sided facial swelling who presents with CT findings and an exam consistent with a peritonsillar abscess extending to the left inferior border of the mandible. -Will defer to ENT for definitive management of left peritonsillar abscess -Agree with chosen antibiotic therapy at the current time. Thank you for this consultation. Please to not hesitate to contact me at [phone] with any questions or concerns. Tang Berg DDS, MD
[2018-07-01 04:39] LABS: Baso % (Auto) 0.2 % (0.0-2.0); Eos # (Auto) 0.2 th/mm3 (0.0-0.4); Eos % (Auto) 1.3 % (0.0-4.0); Hematocrit 30.4 % (39.0-51.0); Hemoglobin 9.5 gm/dL (13.0-17.0); Lymph # (Auto) 1.9 th/mm3 (1.0-4.8); Mean Corpuscular HGB Conc 31.2 % (32.0-36.0); Mean Corpuscular Hemoglobin 30.2 pg (27.0-34.0); Mean Corpuscular Volume 96.7 fL (80.0-100.0); Mean Platelet Volume 9.5 fL (7.0-11.0); Mono # (Auto) 1.1 th/mm3 (0.0-0.9); Mono % (Auto) 6.6 % (0.0-8.0); Neut # (Auto) 12.7 th/mm3 (1.8-7.7); Neut % (Auto) 79.9 % (16.0-70.0); Platelet Count 769 th/mm3 (150-450); Red Blood Count 3.14 mil/mm3 (4.50-5.90); White Blood Count 15.9 th/mm3 (4.0-11.0)
[2018-07-01] MEDS: Ampicillin/Sulbactam Inj 3 GM in Sodium Chloride 0.9% Inj 100 ML IV.SIG SCH ×3 (06:22→18:00)
[2018-07-01] MEDS: Insulin NovoLOG Aspart Correctional Sugar Inj SQ SCH ×4 (08:00→23:31)
[2018-07-01] MEDS: Senna/Docusate Sodium 8.6/50 MG Tablet PO SCH ×2 (09:28→23:32)
[2018-07-01] MEDS: Lisinopril 20 MG Tablet PO SCH (09:28)
[2018-07-01] MEDS: Acetaminophen 325 MG Tablet PO PRN ×3 (09:28→18:46)
[2018-07-01] MEDS: amLODIPine 5 MG Tablet PO SCH (09:29)
[2018-07-01] MEDS: Sod Chloride 0.9% Inj 1,000 ML IV.CONT SCH (09:33)
--- NOTE | 2018-07-01 15:14 | P.PN ---
Subjective Interval history: Nursing denies any deterioration since last night. Patient thinks his edema is better today is able to take more p.o. intake today. Physical Exam Vital signs: Vital Signs 06/30/18 16:00 06/30/18 19:47 06/30/18 20:00 Temperature 97.1 F L 98.3 F Pulse Rate 65 78 86 Respiratory Rate 20 18 Blood Pressure 144/67 H 135/64 Pulse Oximetry 94 L 95 06/30/18 23:45 07/01/18 00:00 07/01/18 04:00 Temperature 97.9 F 97.5 F L Pulse Rate 78 77 79 Respiratory Rate 18 18 Blood Pressure 138/63 157/78 H Pulse Oximetry 94 L 96 07/01/18 08:00 07/01/18 13:09 Temperature 97.8 F 98.2 F Pulse Rate 77 73 Respiratory Rate 16 18 Blood Pressure 146/69 H 136/75 Pulse Oximetry 94 L 95 Intake & Output 06/30/18 07/01/18 07/01/18 18:59 06:59 18:59 Intake Total 1780 / 1780 200 / 200 Balance 1780 / 1780 200 / 200 Weight 69.2 kg Intake: IV 1300 / 1300 200 / 200 NS Inj 1,000 ML @ 75 mls/hr IV. 1000 / 1000 CONT .[id number] SALAZAR Rx#:[id number] Unasyn Inj 3 GM In NS Inj 100 300 / 300 200 / 200 ML @ 200 mls/hr IV.SIG Q6H SALAZAR Rx#:[id number] Oral 480 / 480 0 / 0 Other: # Voids 3 1 Narrative: Again I am unable to visualize much in the posterior pharynx is patient is not able to fully open his mouth due to pain Still has some left-sided submandibular edema which is less today, no obvious erythema otherwise Results - Labs CBC & Chem 7: 07/01/18 03:32 06/30/18 04:42 Laboratory Results - last 24 hr 06/30/18 06/30/18 07/01/18 17:30 21:26 03:32 WBC 15.9 H RBC 3.14 L Hgb 9.5 L Hct 30.4 L MCV 96.7 MCH 30.2 MCHC 31.2 L RDW 20.0 H Plt Count 769 H MPV 9.5 Neut % (Auto) 79.9 H Lymph % (Auto) 12.0 Meagher % (Auto) 6.6 Eos % (Auto) 1.3 Baso % (Auto) 0.2 Neut # (Auto) 12.7 H Lymph # (Auto) 1.9 Meagher # (Auto) 1.1 H Eos # (Auto) 0.2 Baso # (Auto) 0.0 WBC Differential . Differential Comment Auto diff final POC Glucose 114 H 139 H 07/01/18 07/01/18 07:47 12:03 WBC RBC Hgb Hct MCV MCH MCHC RDW Plt Count MPV Neut % (Auto) Lymph % (Auto) Meagher % (Auto) Eos % (Auto) Baso % (Auto) Neut # (Auto) Lymph # (Auto) Meagher # (Auto) Eos # (Auto) Baso # (Auto) WBC Differential Differential Comment POC Glucose 129 H 160 H Microbiology 06/29/18 11:28 Blood - Peripheral Aerobic Blood Culture - Preliminary No growth in 2 days 06/29/18 11:28 Blood - Peripheral Anaerobic Blood Culture - Preliminary No growth in 2 days 06/29/18 11:28 Blood - Peripheral Aerobic Blood Culture - Preliminary No growth in 2 days 06/29/18 11:28 Blood - Peripheral Anaerobic Blood Culture - Preliminary No growth in 2 days Assessment and Plan - Assessment (1) Peritonsillar abscess Code(s): J36 - Peritonsillar abscess Status: Acute (2) Mandibular abscess Code(s): M27.2 - Inflammatory conditions of jaws Status: Acute (3) HTN (hypertension) Code(s): I10 - Essential (primary) hypertension Status: Chronic (4) Type 2 diabetes mellitus Code(s): E11.9 - Type 2 diabetes mellitus without complications Status: Chronic (5) Depression Code(s): F32.9 - Major depressive disorder, single episode, unspecified Status : Chronic - Plan This 73-year-old with past history of type 2 diabetes, gastric ulcer, hypertension, and depression. Being admitted for mandibular abscess and peritonsillar abscess. peritonsillar and mandibular abscess -ENT following for peritonsillar abscess, recommended medical management Maximal facial surgery input also recommends medical management -blood cultures pending negative so far, white count is slowly coming down Type 2 diabetes -SSI w/ accuchecks HTN Continue home medication of amlodipine-benazepril -Clonidine per protocol Gastric Ulcer -Continue Protonix Depression -continue home paroxetine Will start Lovenox Discharge Planning: DC phani if stable and cleared w/ surgeons (3) HTN (hypertension) Qualifiers: Hypertension type: essential hypertension Qualified Code(s): I10 - Essential (primary) hypertension (4) Type 2 diabetes mellitus Qualifiers: Diabetes 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
[2018-07-01] MEDS: Enoxaparin Inj 30 MG/0.3 ML Syringe SQ SCH (17:00)
[2018-07-02] MEDS: Ampicillin/Sulbactam Inj 3 GM in Sodium Chloride 0.9% Inj 100 ML IV.SIG SCH ×2 (00:31→05:55)
[2018-07-02] MEDS: Acetaminophen 325 MG Tablet PO PRN ×2 (00:31→08:54)
[2018-07-02] MEDS: Sod Chloride 0.9% Inj 1,000 ML IV.CONT SCH ×3 (00:55→22:55)
[2018-07-02 05:36] LABS: Baso # (Auto) 0.1 th/mm3 (0.0-0.2); Baso % (Auto) 0.5 % (0.0-2.0); Eos # (Auto) 0.4 th/mm3 (0.0-0.4); Eos % (Auto) 2.7 % (0.0-4.0); Hematocrit 30.5 % (39.0-51.0); Lymph # (Auto) 2.3 th/mm3 (1.0-4.8); Lymph % (Auto) 14.2 % (9.0-44.0); Mean Corpuscular HGB Conc 32.7 % (32.0-36.0); Mean Corpuscular Hemoglobin 31.2 pg (27.0-34.0); Mean Corpuscular Volume 95.4 fL (80.0-100.0); Mean Platelet Volume 9.7 fL (7.0-11.0); Mono # (Auto) 1.2 th/mm3 (0.0-0.9); Mono % (Auto) 7.8 % (0.0-8.0); Neut % (Auto) 74.8 % (16.0-70.0); Platelet Count 797 th/mm3 (150-450); Red Blood Count 3.19 mil/mm3 (4.50-5.90); Red Cell Distribution Width 19.7 % (11.6-17.2)
--- NOTE | 2018-07-02 07:18 | P.PNIM ---
Subjective Interval history: Patient seen and examined this morning, spouse at bedside. He reports no improvement in the pain in his left jaw with increase swelling and thickness this morning. He is not able to chew foods and is not eating as much as he should. He denies other symptoms including fever, nausea, vomiting, abdominal pain. Physical Exam Vital signs: Vital Signs 07/01/18 08:00 07/01/18 12:00 07/01/18 13:09 Temperature 97.8 F 98.2 F Pulse Rate 83 70 73 Respiratory Rate 16 18 Blood Pressure 146/69 H 136/75 Pulse Oximetry 94 L 95 07/01/18 16:00 07/01/18 18:14 07/01/18 20:00 Temperature 97.5 F L 98.1 F Pulse Rate 72 73 66 Respiratory Rate 18 20 Blood Pressure 145/69 H 156/72 H Pulse Oximetry 94 L 90 L 07/02/18 00:00 07/02/18 04:00 Temperature 97.7 F 97 F L Pulse Rate 63 63 Respiratory Rate 18 18 Blood Pressure 156/74 H 156/74 H Pulse Oximetry 94 L 94 L Intake & Output 07/01/18 07/02/18 07/02/18 18:59 06:59 18:59 Intake Total 1700 / 1700 320 / 320 Balance 1700 / 1700 320 / 320 Intake: IV 1100 / 1100 200 / 200 NS Inj 1,000 ML @ 75 mls/hr IV. 1000 / 1000 CONT .[id number] SALAZAR Rx#:[id number] Unasyn Inj 3 GM In NS Inj 100 100 / 100 200 / 200 ML @ 200 mls/hr IV.SIG Q6H SALAZAR Rx#:[id number] Oral 600 / 600 120 / 120 Other: # Voids 4 1 Narrative: Gen: Pleasant patient in no acute respiratory distress HEENT: Swelling noted in his left lower face and jaw, no erythema observed. Patient unable to open his mouth enough to visualize the posterior pharynx. CV: Regular rate and rhythm, 2-3/6 JIMI murmur observed RESP: Clear to auscultation bilateral ABD: Nontender, nondistended, normal bowel sounds EXT: No cyanosis or edema, calves are nontender to palpation Results - Labs CBC & Chem 7: 07/02/18 04:36 06/30/18 04:42 Laboratory Results - last 24 hr 07/01/18 07/01/18 07/01/18 07:47 12:03 17:45 WBC RBC Hgb Hct MCV MCH MCHC RDW Plt Count MPV Prelim Diff (Auto) Neut % (Auto) Lymph % (Auto) Davison % (Auto) Eos % (Auto) Baso % (Auto) Neut # (Auto) Lymph # (Auto) Davison # (Auto) Eos # (Auto) Baso # (Auto) Differential Comment POC Glucose 129 H 160 H 134 H 07/01/18 07/02/18 23:08 04:36 WBC 16.0 H RBC 3.19 L Hgb 10.0 L Hct 30.5 L MCV 95.4 MCH 31.2 MCHC 32.7 RDW 19.7 H Plt Count 797 H MPV 9.7 Prelim Diff (Auto) Slide review pending Neut % (Auto) 74.8 H Lymph % (Auto) 14.2 Davison % (Auto) 7.8 Eos % (Auto) 2.7 Baso % (Auto) 0.5 Neut # (Auto) 12.0 H Lymph # (Auto) 2.3 Davison # (Auto) 1.2 H Eos # (Auto) 0.4 Baso # (Auto) 0.1 Differential Comment . POC Glucose 133 H Microbiology 06/29/18 11:28 Blood - Peripheral Aerobic Blood Culture - Preliminary No growth in 2 days 06/29/18 11:28 Blood - Peripheral Anaerobic Blood Culture - Preliminary No growth in 2 days 06/29/18 11:28 Blood - Peripheral Aerobic Blood Culture - Preliminary No growth in 2 days 06/29/18 11:28 Blood - Peripheral Anaerobic Blood Culture - Preliminary No growth in 2 days Assessment and Plan - Assessment (1) Peritonsillar abscess Code(s): J36 - Peritonsillar abscess Status: Acute (2) Mandibular abscess Code(s): M27.2 - Inflammatory conditions of jaws Status: Acute (3) HTN (hypertension) Code(s): I10 - Essential (primary) hypertension Status: Chronic (4) Type 2 diabetes mellitus Code(s): E11.9 - Type 2 diabetes mellitus without complications Status: Chronic (5) Depression Code(s): F32.9 - Major depressive disorder, single episode, unspecified Status : Chronic - Plan 73-year-old with past history of type 2 diabetes, gastric ulcer, hypertension, and depression. Being admitted for mandibular abscess and peritonsillar abscess. Peritonsillar and mandibular abscess -Worse today per patient report -ENT following for peritonsillar abscess, recommend medical management OMFS surgery input also recommend medical management -Blood cultures pending negative x2 days -Currently on ampicillin sulbactam with minimal to no improvement. WBC 16.0 today compared to 15.9 on the previous day -Switch abx to Clindamycin per ENT -Start Decadron IV -Change diet to mechanical softs with Glucerna shakes BID -Dietary consult Type 2 diabetes -SSI w/ accuchecks -Needed only 1 unit SSI in the last 24 hrs HTN -BP has been steadily elevated in the high 150's and 160's -Continue home medication of amlodipine-benazepril, increase amlodipine to 10 mg p.o. 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
[2018-07-02] MEDS: Enoxaparin Inj 30 MG/0.3 ML Syringe SQ SCH (08:53)
[2018-07-02] MEDS: amLODIPine 5 MG Tablet PO SCH (08:54)
[2018-07-02] MEDS: Lisinopril 20 MG Tablet PO SCH (08:54)
[2018-07-02] MEDS: Senna/Docusate Sodium 8.6/50 MG Tablet PO SCH ×2 (08:55→20:42)
[2018-07-02] MEDS: Insulin NovoLOG Aspart Correctional Sugar Inj SQ SCH ×4 (08:55→20:41)
[2018-07-02 09:12] LABS: Eosinophils 1 % (0-4); Metamyelocytes 2 % (0-1); Monocytes 8 % (0-8); Plasma Cells 1 % (0-0); Tallied Nucleated RBC 1 (0-0)
[2018-07-02 09:13] LABS: Lymphocytes 9 % (9-44); Ovalocytes 1+
[2018-07-02] MEDS ORDERED: amLODIPine 5 MG Tablet PO ONE (09:30)
[2018-07-02] MEDS ORDERED: Lidocaine 1%/Epinephrine 1:100,000 Inj 30 ML Vial ONE (12:24)
[2018-07-02] MEDS: Dexamethasone Inj 20 MG/5 ML Vial IV.PUSH SCH ×2 (13:04→20:41)
[2018-07-02] MEDS: Clindamycin 900 mg/NS Premix 900 MG/50 ML PIGGYBACK IV.SIG SCH ×2 (13:04→20:40)
--- NOTE | 2018-07-02 17:29 | US ---
EXAM DATE: 07/02/2018 5:02 PM EDT AGE/SEX: 73 years / Male INDICATIONS: Fluid seen on prior CT. CLINICAL DATA: This is the patient's initial encounter. Patient reports that signs and symptoms have been present for 4 - 6 days and indicates a pain score of 3/10. MEDICAL/SURGICAL HISTORY: Diabetes. Hypertension. Gastric ulcer. . Colonoscopy. Arthroscopy of right knee. Endoscopy. [place] [facility] [place] 06/29/2018. . FINDINGS: There is very slight area of irregular fluid collection tenths left submandibular area measures 1.1 x 1.2 cm in maximum diameter. CONCLUSION: 1. Small irregular fluid collection in the left submandibular region nonspecific, however possibilit y of abscess should be entertained. Electronically signed by: Ye Cuevas MD 07/02/2018 5:27 PM EDT
--- NOTE | 2018-07-02 21:49 | MB ---
cc: Sancho Pizano MD DATE: 07/02/2018 REQUESTING PHYSICIAN: Dr. Nugent REASON: Patient with mandibular abscess not improving much on Unasyn. Please assist with antibiotic treatment. HISTORY OF PRESENT ILLNESS: This is a 73-year-old white male who developed pain and fever and chills and altered mental status and presented to the emergency department for evaluation. The patient was noted to have swelling of the left mandible and was felt to have a peritonsillar and mandibular abscess. CT scan of the face was performed on 06/29/2018 because of swelling of the jaw and there was an elongated rim-enhancing collection involving the left nasopharyngeal and oropharyngeal region characteristic of a peritonsillar abscess extending over several centimeters and an abscess noted at the left submandibular gland with adjacent reactive adenopathy. The patient was evaluated by ENT. He just had attempted aspiration of fluid from the left mandibular area. His is at bedside. She reports that they did not get much fluid and she was told that it does not look like pus. The patient was started on Decadron and antibiotic was changed to clindamycin. This consultation was requested for antibiotic treatment. The patient states that he feels better. He states that he has no fever and no chills and he is able to open his mouth wider and was able to eat. His is at bedside and she said she was surprised that he was able to eat better today. His white count is still elevated. White count was 21.1 on 06/29/2018 and today 16.0. Blood cultures are no growth in 3 days. A culture from the fluid from the face was taken and the result will not be available until the next day or 2 because it was just sent today. PAST MEDICAL HISTORY: Diabetes mellitus, depression, gastric ulcer, hypertension, right knee arthroscopy. ALLERGIES: NO KNOWN DRUG ALLERGIES. MEDICATIONS: Ecotrin, Lipitor, clindamycin, Decadron, Lovenox, insulin, Prinivil, Paxil, Protonix. SOCIAL HISTORY: The patient is . No tobacco, occasional alcohol. No illicit drugs. FAMILY HISTORY: Significant for diabetes mellitus. REVIEW OF SYSTEMS: All systems have been reviewed and are negative, except for that mentioned in the history of present illness. PHYSICAL EXAMINATION: GENERAL: This is a well-developed male who is in no acute distress. He is awake, alert and oriented. He interacts appropriately. VITAL SIGNS: Temperature 97 degrees, BP 157/74, respirations 18, heart rate 73. HEENT: The head is atraumatic. There is swelling at the left lower jaw which is firm and has very minimal tenderness. Extraocular movements grossly intact. Pupils reactive to light. No icterus. Oropharynx moist mucosa without lesions. NECK: Supple without adenopathy. LUNGS: Decreased breath sounds. Clear. HEART: Regular S1, S2, without murmurs, rubs or gallops. ABDOMEN: Bowel sounds present. Soft, nontender. RECTAL: Not performed. EXTREMITIES: No clubbing. No cyanosis or edema. SKIN: No rash. NEUROLOGIC: Nonfocal. PSYCHIATRIC: The patient is calm and cooperative. LABORATORY DATA: WBC 10.0, platelets of 97, 74% neutrophils, 17% lymphocytes, hemoglobin 10.0. Creatinine 0.97, BUN 32, estimated GFR 89. LFTs normal. IMPRESSION: 1. Peritonsillar and submandibular abscess of the left. The patient has been on antibiotics and has been slow to respond. 2. Leukocytosis. 3. Diabetes mellitus. RECOMMENDATIONS: 1. Continue IV clindamycin. 2. Continue the steroids. 3. Follow the wound culture from the jaw. 4. Monitor clinical response. Thank you for this consultation. I will follow the cultures and the patient's response to antibiotics and make further recommendations. Antibiotics may need to be adjusted depending on the culture results. Thank you for this consultation. MD CELE Poole/charlotte , 02:10 PM , 02:24 PM
[2018-07-03] MEDS: Dexamethasone Inj 20 MG/5 ML Vial IV.PUSH SCH ×3 (03:54→20:44)
[2018-07-03] MEDS: Clindamycin 900 mg/NS Premix 900 MG/50 ML PIGGYBACK IV.SIG SCH ×3 (03:54→20:43)
--- NOTE | 2018-07-03 04:32 | MB ---
cc: Ran Sofia MD DATE: 07/02/2018 HISTORY OF PRESENT ILLNESS: Of note, the patient is stable. He is having no shortness of breath. He states that the back of his throat feels better. He no longer has the pain where he was having peritonsillar abscess; however, his neck is still concerning to him and it felt slightly harder to him today. OBJECTIVE: The patient has decreased swelling in the peritonsillar area compared to prior. However, his left neck is still swollen and is somewhat less soft on the left compared to prior as well. The floor of mouth is soft and he has no airway issues actively. ASSESSMENT: Left neck infection. PLAN: Needle aspiration of this area. After numbing the area with 1% lidocaine with epinephrine, the area was attempted aspiration with an 18 gauge needle in the left neck in the area of the swelling. The aspiration was essentially negative. This was sent for cultures and sensitivities. The antibiotic was switched to clindamycin 900 mg IV every 8 hours. We also added Decadron because of the persistent swelling. I spoke with the nurse to ask the hospitalist to monitor the sugars while he is on Decadron being diabetic, although his diabetes is relatively stable currently. Also discussed getting infectious disease consulted today as well. Lastly, ordered the ultrasound-guided FNA of the left neck and this is to be sent for cultures and sensitivities as well, to assist in management of his care. Thank you for this consultation. Ran Sofia MD PCC/rw , 03:43 PM , 03:49 PM
[2018-07-03 04:35] LABS: Hematocrit 29.6 % (39.0-51.0); Hemoglobin 9.7 gm/dL (13.0-17.0); Mean Corpuscular HGB Conc 32.7 % (32.0-36.0); Mean Corpuscular Volume 94.9 fL (80.0-100.0); Mean Platelet Volume 9.6 fL (7.0-11.0); Platelet Count 850 th/mm3 (150-450); Red Blood Count 3.12 mil/mm3 (4.50-5.90); Red Cell Distribution Width 19.6 % (11.6-17.2); White Blood Count 21.8 th/mm3 (4.0-11.0)
[2018-07-03 05:11] LABS: Anion Gap 13 meq/L (5-15); Blood Urea Nitrogen 18 mg/dL (7-18); Calcium 9.4 mg/dL (8.5-10.1); Carbon Dioxide 22.3 meq/L (21.0-32.0); Chloride 107 meq/L (98-107); Glomerular Filtration Rate Greater Than 89 mL/min (>89); Glucose,Random 256 mg/dL (74-106); Potassium 4.1 meq/L (3.5-5.1); Sodium 142 meq/L (136-145)
--- NOTE | 2018-07-03 07:40 | P.PNIM ---
Subjective Interval history: Patient was seen and examined this morning, at bedside. He feels a whole lot better, the swelling in his left face has significantly decreased, and he is able to open his mouth better. He is also eating and feels more like himself today. Physical Exam Vital signs: Vital Signs 07/02/18 08:00 07/02/18 12:00 07/02/18 16:00 Temperature 97.9 F 97.0 F L 98.2 F Pulse Rate 74 71 80 Respiratory Rate 18 Blood Pressure 167/77 H 157/74 H 156/76 H Pulse Oximetry 96 96 94 L 07/02/18 20:00 07/03/18 00:00 07/03/18 04:00 Temperature 97.6 F 97.3 F L 97.4 F L Pulse Rate 67 77 71 Respiratory Rate 18 Blood Pressure 145/71 H 146/75 H 133/68 Pulse Oximetry 96 96 95 Intake & Output 07/02/18 07/03/18 07/03/18 18:59 06:59 18:59 Intake Total 1370 / 1370 1770 / 1770 Output Total 1000 / 1000 400 / 400 Balance 370 / 370 1370 / 1370 Weight 69.2 kg Intake: IV 1050 / 1050 1050 / 1050 NS Inj 1,000 ML @ 75 mls/hr IV. 1000 / 1000 1000 / 1000 CONT .[id number] SALAZAR Rx#:[id number] Cleocin 900 mg/NS Premix 900 mg 50 / 50 50 / 50 In 50 ml @ 100 mls/hr IV.SIG Q8H SALAZAR Rx#:[id number] Oral 320 / 320 720 / 720 Output: Urine 1000 / 1000 400 / 400 Other: # Bowel Movements 0 0 Narrative: Gen: Pleasant patient in no acute respiratory distress HEENT: Swelling noted in his left lower face and jaw much reduced compared to the previous day, no erythema observed. Patient able to open his mouth much wider but still unable to visualize the posterior pharynx CV: Regular rate and rhythm, 2-3/6 JIMI murmur observed RESP: Scattered wheezes, weak effort ABD: Nontender, nondistended, normal bowel sounds EXT: No cyanosis or edema, calves are nontender to palpation Results - Labs CBC & Chem 7: 07/03/18 03:53 07/03/18 03:53 Laboratory Results - last 24 hr 07/02/18 07/02/18 07/02/18 04:36 04:36 11:22 WBC RBC Hgb Hct MCV MCH MCHC RDW Plt Count MPV WBC Differential Manual diff final Seg Neuts % (Manual) 70 Band Neuts % (Manual) 9 H Lymphocytes % (Manual) 9 Monocytes % (Manual) 8 Eosinophils % (Manual) 1 Metamyelocytes % (Man) 2 H Plasma Cell % (Manual) 1 H Abs Neuts (Manual) 13.0 H Nucleated RBCs/100 WBC 1 H Platelet Estimate High H Platelet Morphology Enlarged H Ovalocytes 1+ H Smear Path Review Sodium Potassium Chloride Carbon Dioxide Anion Gap BUN Creatinine Estimated GFR POC Glucose 159 H Random Glucose Calcium 07/02/18 07/02/18 07/03/18 16:52 19:34 03:53 WBC 21.8 H RBC 3.12 L Hgb 9.7 L Hct 29.6 L MCV 94.9 MCH 31.0 MCHC 32.7 RDW 19.6 H Plt Count 850 H MPV 9.6 WBC Differential Seg Neuts % (Manual) Band Neuts % (Manual) Lymphocytes % (Manual) Monocytes % (Manual) Eosinophils % (Manual) Metamyelocytes % (Man) Plasma Cell % (Manual) Abs Neuts (Manual) Nucleated RBCs/100 WBC Platelet Estimate Platelet Morphology Ovalocytes Smear Path Review Sodium Potassium Chloride Carbon Dioxide Anion Gap BUN Creatinine Estimated GFR POC Glucose 286 H 269 H Random Glucose Calcium 07/03/18 03:53 WBC RBC Hgb Hct MCV MCH MCHC RDW Plt Count MPV WBC Differential Seg Neuts % (Manual) Band Neuts % (Manual) Lymphocytes % (Manual) Monocytes % (Manual) Eosinophils % (Manual) Metamyelocytes % (Man) Plasma Cell % (Manual) Abs Neuts (Manual) Nucleated RBCs/100 WBC Platelet Estimate Platelet Morphology Ovalocytes Smear Path Review Sodium 142 Potassium 4.1 Chloride 107 Carbon Dioxide 22.3 Anion Gap 13 BUN 18 Creatinine 0.69 Estimated GFR Greater than 89 POC Glucose Random Glucose 256 H Calcium 9.4 Microbiology 06/29/18 11:28 Blood - Peripheral Aerobic Blood Culture - Preliminary No growth in 3 days 06/29/18 11:28 Blood - Peripheral Anaerobic Blood Culture - Preliminary No growth in 3 days 06/29/18 11:28 Blood - Peripheral Aerobic Blood Culture - Preliminary No growth in 3 days 06/29/18 11:28 Blood - Peripheral Anaerobic Blood Culture - Preliminary No growth in 3 days - Imaging Impressions Neck Ultrasound 07/02/18 00:00 CONCLUSION: 1. Small irregular fluid collection in the left submandibular region nonspecific, however possibility of abscess should be entertained. Assessment and Plan - Assessment (1) Peritonsillar abscess Code(s): J36 - Peritonsillar abscess Status: Acute (2) Mandibular abscess Code(s): M27.2 - Inflammatory conditions of jaws Status: Acute (3) HTN (hypertension) Code(s): I10 - Essential (primary) hypertension Status: Chronic (4) Type 2 diabetes mellitus Code(s): E11.9 - Type 2 diabetes mellitus without complications Status: Chronic (5) Depression Code(s): F32.9 - Major depressive disorder, single episode, unspecified Status : Chronic - Plan 73-year-old with past history of type 2 diabetes, gastric ulcer, hypertension, and depression, admitted for mandibular abscess and peritonsillar abscess. Peritonsillar and mandibular abscess -WMuch improved today per patient report -ENT on board - attempted needle aspiration on 07/02 with very little fluid return -Gram stain/culture and fungal smear/culture pending -Blood cultures pending negative x3 days -Continue Decadron 10mg q8h IV -Continue mechanical soft diet with Glucerna shakes BID -Dietary consult pending Type 2 diabetes -SSI w/ accuchecks -After steroids was started, blood glucose increased to 286 -Needed 12 units SSI in the last 24 hrs which represents a big increase from previous -Consider starting Levemir tonight as long as patient is eating well HTN -BP has improved to a high of low 150's systolic -Continue Amlodipine 10mg PO daily and Lisinopril 40mg PO daily -Clonidine per protocol Gastric Ulcer -Continue Protonix Depression -Continue home paroxetine Unintentional weight loss -Patient and spouse report unintenional weight loss of at least 18 lbs over a 6- month period -Abnormal neutrophils, plasma cells, and metamyelocytes identified on CBC differential as well as elevated platelets of 850 -Need to rule out CML -Pathology smear review pending Continue Lovenox for DVT prophylaxis Discussed Condition With: Patient, spouse, and patient's nurse Discharge Planning: Discharge once clinically improved (3) HTN (hypertension) Qualifiers: Hypertension type: essential hypertension Qualified Code(s): I10 - Essential (primary) hypertension (4) Type 2 diabetes mellitus Qualifiers: Diabetes mellitus retirement insulin use: without retirement use Diabetes mellitus complication status: with unspecified complications Qualified Code(s) : E11.8 - Type 2 diabetes mellitus with unspecified complications (5) Depression Qualifiers: Depression Type: major depressive disorder Major depression recurrence: recurrent Active/Remission status: in partial remission Qualified Code(s): F33.41 - Major depressive disorder, recurrent, in partial remission
[2018-07-03] MEDS: Insulin NovoLOG Aspart Correctional Sugar Inj SQ SCH ×4 (09:19→20:46)
[2018-07-03] MEDS: Lisinopril 20 MG Tablet PO SCH (09:20)
[2018-07-03] MEDS: Enoxaparin Inj 30 MG/0.3 ML Syringe SQ SCH (09:20)
[2018-07-03] MEDS: amLODIPine 5 MG Tablet PO SCH (09:20)
[2018-07-03] MEDS: Senna/Docusate Sodium 8.6/50 MG Tablet PO SCH ×2 (09:21→20:46)
[2018-07-03] MEDS: Sod Chloride 0.9% Inj 1,000 ML IV.CONT SCH ×2 (11:32→23:42)
--- NOTE | 2018-07-03 12:58 | MB ---
cc: Ran Sofia MD DATE: 07/03/2018 NOTE: Regarding the ultrasound-guided fine needle aspiration that I requested yesterday, I did receive a call from the facilities maintenance technician. She did note that there was no fluid present and asked that the order be changed to an ultrasound instead of an ultrasound-guided FNA because there is no fluid present for aspiration. Thus, I complied and the order was changed from an ultrasound-guided FNA to an ultrasound. In speaking with the patient's nurse today, the mass does appear slightly smaller. Infectious disease is on board as well. I thank the whole team for their combined care. Ran Sofia MD PCC/jl , 09:17 AM , 09:22 AM
[2018-07-03] MEDS: Acetaminophen 325 MG Tablet PO PRN (13:50)
--- NOTE | 2018-07-03 16:46 | P.DIET ---
Nutritional Evaluation Type of nutrition evaluation: initial Nutrition screening[place] [facility] [place] 07[place]02[place]18 [facility] [place] PO intake Subjective Oral Diet Tolerance Assessment Indicates: Swallowing problems Subjective Comments: PT sipping on a Glucerna Shake when visited. Pt's at bedside. Pt and his report po intake improved yesterday and today. Pt likes milk and yogurt. Pt and his report an unintentional wt loss over the past year from 195-lb to current wt. Objective - Diagnosis Acute Peritonsillar and Submandibular Abscess, BILL - Objective [place] body weight: 72.7 kg % IBW: 94 Body Weight Used for Calculations: Actual (68.1 kg) Energy Needs - Lower Range (kCal/kg): 25 Energy Needs - Upper Range (kCal/kg): 30 Lower Limit kCal/kg (kCals): 1,703 Upper Limit kCal/kg (kCals): 2,043 Lower Limit Protein Factor (Grams per Kg): 1.1 Upper Limit Protein Factor (Grams per Kg): 1.4 Lower Protein Needs (Protein): 75 Upper Protein Needs (Protein): 95 Fluid Factor (ml/kg): 30 Estimated Fluid Needs (ml): 2,043 Dietitian Reviewed in Medical Record: Current diet, Curent medications, Intake & Output, Labs, Medical history Diet Order: [id number] [facility] soft Oral Diet Intake Amount: Fair 50-75% Objective Comments: PMH: Depression, DM, Gastric Ulcer h/o endoscopy Glucose 256, POC Glucose 326 Meds Include: Norvasc, Lipitor, Novolog SSI, Lisinopril Feeding - Current PO Supplement Current Supplement: Glucerna Shake Current Frequency of Supplement: Twice daily Current kCals Provided by Supplement: 220 Current Protein Provided by Supplement: 10 Assessment Assessment: Pt is at nutritional risk r/t diagnosis, poor PO intake and unintentional wt loss. PT tolerating diet w/improved po intake today. Rec Glucerna Shake BID increased to TID. Send Milk w/meals. Include yogurt daily for additional nutrition. Labs reviewed. Dietitian following. Recommendations: 1. Rec Glucerna Shake BID increased to TID 2. Send Milk w/meals 3. Include yogurt daily for additional nutrition 4. Dietitian following Dietitian to Monitor: Lab values, Renal labs, Glucose level, Supplement acceptance, Intake & Output, Diet tolerance, Weight change, PO Intake, Medical course
[2018-07-03] MEDS: Insulin Detemir Inj 1,000 UNIT/10 ML Vial SQ SCH (20:45)
[2018-07-04] MEDS: Sod Chloride 0.9% Inj 1,000 ML IV.CONT SCH ×2 (01:52→14:15)
[2018-07-04] MEDS: Dexamethasone Inj 20 MG/5 ML Vial IV.PUSH SCH (03:27)
[2018-07-04] MEDS: Clindamycin 900 mg/NS Premix 900 MG/50 ML PIGGYBACK IV.SIG SCH ×3 (03:27→20:33)
[2018-07-04 06:35] LABS: Baso # (Auto) 0.1 th/mm3 (0.0-0.2); Baso % (Auto) 0.2 % (0.0-2.0); Eos # (Auto) 0.1 th/mm3 (0.0-0.4); Eos % (Auto) 0.2 % (0.0-4.0); Lymph # (Auto) 1.6 th/mm3 (1.0-4.8); Lymph % (Auto) 5.3 % (9.0-44.0); Mean Corpuscular Hemoglobin 30.4 pg (27.0-34.0); Mean Corpuscular Volume 94.9 fL (80.0-100.0); Mean Platelet Volume 9.6 fL (7.0-11.0); Mono # (Auto) 1.2 th/mm3 (0.0-0.9); Neut # (Auto) 27.1 th/mm3 (1.8-7.7); Neut % (Auto) 90.3 % (16.0-70.0); Platelet Count 822 th/mm3 (150-450); Red Blood Count 2.95 mil/mm3 (4.50-5.90); Red Cell Distribution Width 20.2 % (11.6-17.2)
[2018-07-04 06:48] LABS: Anion Gap 11 meq/L (5-15); Blood Urea Nitrogen 25 mg/dL (7-18); Calcium 9.1 mg/dL (8.5-10.1); Carbon Dioxide 24.3 meq/L (21.0-32.0); Chloride 106 meq/L (98-107); Glomerular Filtration Rate Greater Than 89 mL/min (>89); Glucose,Random 302 mg/dL (74-106); Potassium 4.1 meq/L (3.5-5.1); Sodium 141 meq/L (136-145)
[2018-07-04] MEDS: Lisinopril 20 MG Tablet PO SCH (08:18)
[2018-07-04] MEDS: amLODIPine 5 MG Tablet PO SCH (08:18)
[2018-07-04] MEDS: Enoxaparin Inj 30 MG/0.3 ML Syringe SQ SCH (08:19)
[2018-07-04] MEDS: Insulin Detemir Inj 1,000 UNIT/10 ML Vial SQ SCH ×2 (08:19→21:18)
[2018-07-04] MEDS: Senna/Docusate Sodium 8.6/50 MG Tablet PO SCH ×2 (08:19→20:33)
[2018-07-04] MEDS: Insulin NovoLOG Aspart Correctional Sugar Inj SQ SCH ×4 (08:32→21:17)
[2018-07-04] MEDS ORDERED: Dexamethasone Inj 20 MG/5 ML Vial IV.PUSH SCH (09:00)
[2018-07-04 09:47] LABS: Eosinophils 1 % (0-4); Lymphocytes 3 % (9-44); Metamyelocytes 1 % (0-1); Monocytes 5 % (0-8); Plasma Cells 1 % (0-0)
[2018-07-04 09:48] LABS: Ovalocytes 1+; Platelet Morphology Normal (Normal)
--- NOTE | 2018-07-04 10:56 | P.PNIM ---
Subjective Interval history: She says he is feeling better than yesterday. Denies any chest pain or shortness of breath. Reports swallowing is a little better. He is drinking 2 Glucerna is with every meal. Patient did have a fall today, tripped on furniture. was with him and broke his fall. No injury. instructed the patient to call nurse before walking Physical Exam Vital signs: Vital Signs 07/03/18 12:00 07/03/18 16:00 07/03/18 20:00 Temperature 98.1 F 98.2 F 97.5 F L Pulse Rate 79 77 72 Respiratory Rate 16 16 18 Blood Pressure 142/75 H 153/73 H 119/57 L Pulse Oximetry 94 L 95 95 07/04/18 00:00 07/04/18 04:00 07/04/18 07:25 Temperature 98 F 97.8 F Pulse Rate 58 L 61 59 L Respiratory Rate 18 18 12 Blood Pressure 134/79 141/74 H Pulse Oximetry 96 95 07/04/18 08:00 Temperature 97.5 F L Pulse Rate 56 L Respiratory Rate 17 Blood Pressure 150/77 H Pulse Oximetry 98 Intake & Output 07/03/18 07/04/18 07/04/18 18:59 06:59 18:59 Intake Total 1530 / 1530 1580 / 1580 Output Total 400 / 400 Balance 1530 / 1530 1180 / 1180 Intake: IV 1050 / 1050 1100 / 1100 NS Inj 1,000 ML @ 75 mls/hr IV. 1000 / 1000 1000 / 1000 CONT .[id number] [facility] Rx#:[id number] Cleocin 900 mg/NS Premix 900 mg 50 / 50 100 / 100 In 50 ml @ 100 mls/hr IV.SIG Q8H [facility] Rx#:[id number] Oral 480 / 480 480 / 480 Output: Urine 400 / 400 Other: # Voids 3 3 Date of Last Bowel Movement 07/04/18 # Bowel Movements 0 0 Narrative: GENERAL: Lying in bed. Appears comfortable. SKIN: Warm and dry. HEAD: Normocephalic. EYES: No scleral icterus. No injection or drainage. NECK: Supple, trachea midline. No JVD. CARDIOVASCULAR: Regular rate and rhythm without murmurs, gallops, or rubs. RESPIRATORY: Breath sounds equal bilaterally. No accessory muscle use. GASTROINTESTINAL: Abdomen soft, non-tender, nondistended. MUSCULOSKELETAL: No cyanosis, or edema. BACK: Nontender without obvious deformity. No CVA tenderness. Results - Labs CBC & Chem 7: 07/04/18 03:45 07/04/18 03:45 Laboratory Results - last 24 hr 07/03/18 07/04/18 07/04/18 11:29 03:45 03:45 WBC 30.0 H RBC 2.95 L Hgb 9.0 L Hct 28.0 L MCV 94.9 MCH 30.4 MCHC 32.0 RDW 20.2 H Plt Count 822 H MPV 9.6 Prelim Diff (Auto) Slide review pending Neut % (Auto) 90.3 H Lymph % (Auto) 5.3 L [place] % (Auto) 4.0 Eos % (Auto) 0.2 Baso % (Auto) 0.2 Neut # (Auto) 27.1 H Lymph # (Auto) 1.6 [place] # (Auto) 1.2 H Eos # (Auto) 0.1 Baso # (Auto) 0.1 WBC Differential Manual diff final Seg Neuts % (Manual) 79 H Band Neuts % (Manual) 10 H Lymphocytes % (Manual) 3 L Monocytes % (Manual) 5 Eosinophils % (Manual) 1 Metamyelocytes % (Man) 1 Plasma Cell % (Manual) 1 H Abs Neuts (Manual) 27.0 H Differential Comment . Platelet Estimate High H Platelet Morphology Normal Ovalocytes 1+ H Sodium 141 Potassium 4.1 Chloride 106 Carbon Dioxide 24.3 Anion Gap 11 BUN 25 H Creatinine 0.77 Estimated GFR Greater than 89 POC Glucose 326 H Random Glucose 302 H Calcium 9.1 07/04/18 08:16 WBC RBC Hgb Hct MCV MCH MCHC RDW Plt Count MPV Prelim Diff (Auto) Neut % (Auto) Lymph % (Auto) [place] % (Auto) Eos % (Auto) Baso % (Auto) Neut # (Auto) Lymph # (Auto) [place] # (Auto) Eos # (Auto) Baso # (Auto) WBC Differential Seg Neuts % (Manual) Band Neuts % (Manual) Lymphocytes % (Manual) Monocytes % (Manual) Eosinophils % (Manual) Metamyelocytes % (Man) Plasma Cell % (Manual) Abs Neuts (Manual) Differential Comment Platelet Estimate Platelet Morphology Ovalocytes Sodium Potassium Chloride Carbon Dioxide Anion Gap BUN Creatinine Estimated GFR POC Glucose 376 H Random Glucose Calcium Microbiology 07/02/18 13:00 Fluid - Other Gram Stain - Final 07/02/18 13:00 Fluid - Other Body Fluid Culture - Final 07/02/18 13:00 Fluid - Other Fungal Smear - Final No fungal elements seen 06/29/18 11:28 Blood - Peripheral Aerobic Blood Culture - Preliminary No growth in 4 days 06/29/18 11:28 Blood - Peripheral Anaerobic Blood Culture - Preliminary No growth in 4 days 06/29/18 11:28 Blood - Peripheral Aerobic Blood Culture - Preliminary No growth in 4 days 06/29/18 11:28 Blood - Peripheral Anaerobic Blood Culture - Preliminary No growth in 4 days Assessment and Plan - Assessment (1) Peritonsillar abscess Code(s): J36 - Peritonsillar abscess Status: Acute (2) Mandibular abscess Code(s): M27.2 - Inflammatory conditions of jaws Status: Acute (3) HTN (hypertension) Code(s): I10 - Essential (primary) hypertension Status: Chronic (4) Type 2 diabetes mellitus Code(s): E11.9 - Type 2 diabetes mellitus without complications Status: Chronic (5) Depression Code(s): F32.9 - Major depressive disorder, single episode, unspecified Status : Chronic - Plan 73-year-old with past history of type 2 diabetes, gastric ulcer, hypertension, and depression, admitted for mandibular abscess and peritonsillar abscess. //Peritonsillar and mandibular abscess -WMuch improved today per patient report -ENT on board - attempted needle aspiration on 07/02 with very little fluid return -Gram stain/culture and fungal smear/culture pending -Blood cultures pending negative x3 days -Continue Decadron 10mg q8h IV -Continue mechanical soft diet with Glucerna shakes BID = Patient doing better. Drinking triglycerides with every meal. Continue antibiotics as per infectious disease. Gram-positive cocci on needle aspiration from 07/02. Follow-up sensitivities. Discontinue steroids as per ENT. Continue to monitor closely. //Type 2 diabetes -SSI w/ accuchecks -After steroids was started, blood glucose increased to 286 -Needed 12 units SSI in the last 24 hrs which represents a big increase from previous -Consider starting Levemir tonight as long as patient is eating well = Glucose in the 300s. Steroids will be discontinued. Adjust insulin sliding scale. Discussed with nurse. //HTN -BP has improved to a high of low 150's systolic -Continue Amlodipine 10mg PO daily and Lisinopril 40mg PO daily -Clonidine per protocol = Blood pressure acceptable. Continue to monitor. //Gastric Ulcer -Continue Protonix //Depression -Continue home paroxetine //Unintentional weight loss -Patient and spouse report unintenional weight loss of at least 18 lbs over a 6- month period -Abnormal neutrophils, plasma cells, and metamyelocytes identified on CBC differential as well as elevated platelets of 850 -Need to rule out CML -Pathology smear review still pending //Continue Lovenox for DVT prophylaxis Discussed Condition With: Patient, spouse, and patient's nurse Discharge Planning: Pending ENT clearance. (3) HTN (hypertension) Qualifiers: Hypertension type: essential hypertension Qualified Code(s): I10 - Essential (primary) hypertension (4) Type 2 diabetes mellitus Qualifiers: Diabetes mellitus non destructive testing specialist insulin use: without non destructive testing specialist use Diabetes mellitus complication status: with unspecified complications Qualified Code(s) : E11.8 - Type 2 diabetes mellitus with unspecified complications (5) Depression Qualifiers: Depression Type: major depressive disorder Major depression recurrence: recurrent Active/Remission status: in partial remission Qualified Code(s): F33.41 - Major depressive disorder, recurrent, in partial remission
--- NOTE | 2018-07-04 14:17 | P.PNID ---
Subjective Remarks: Patient notes that he feels better. He is open his mouth easier and is able to eat. Still has marked swelling in the left mandibular area. Afebrile. Culture of fluid aspirated from the jaw has normal julia. 73-year-old white male who developed pain and fever and chills and altered mental status and presented to the emergency department for evaluation. The patient was noted to have swelling of the left mandible and was felt to have a peritonsillar and mandibular abscess. CT scan of the face was performed on 06/29/2018 because of swelling of the jaw and there was an elongated rim-enhancing collection involving the left nasopharyngeal and oropharyngeal region characteristic of a peritonsillar abscess extending over several centimeters and an abscess noted at the left submandibular gland with adjacent reactive adenopathy. The patient was evaluated by ENT. He just had attempted aspiration of fluid from the left mandibular area. His is at bedside. His reports that they did not get much fluid and she was told that it does not look like pus. The patient was started on Decadron and antibiotic was changed to clindamycin. This consultation was requested for antibiotic treatment. Past Medical History: PAST MEDICAL HISTORY: Diabetes mellitus, depression, gastric ulcer, hypertension, right knee arthroscopy. Allergies/Adverse Reactions: Allergies No Known Allergies Allergy (Unverified 06/29/18 11:11) Objective Vital Signs 07/03/18 16:00 07/03/18 20:00 07/04/18 00:00 Temperature 98.2 F 97.5 F L 98 F Pulse Rate 77 72 58 L Respiratory Rate 16 18 18 Blood Pressure 153/73 H 119/57 L 134/79 Pulse Oximetry 95 95 96 07/04/18 04:00 07/04/18 07:25 07/04/18 08:00 Temperature 97.8 F 97.5 F L Pulse Rate 61 59 L 56 L Respiratory Rate 18 12 17 Blood Pressure 141/74 H 150/77 H Pulse Oximetry 95 98 07/04/18 09:00 07/04/18 12:12 Temperature 97.5 F L Pulse Rate 56 L 55 L Respiratory Rate 17 12 Blood Pressure 150/77 H Pulse Oximetry 98 Intake & Output 07/03/18 07/04/18 07/04/18 18:59 06:59 18:59 Intake Total 1530 / 1530 1580 / 1580 Output Total 400 / 400 Balance 1530 / 1530 1180 / 1180 Intake: IV 1050 / 1050 1100 / 1100 NS Inj 1,000 ML @ 75 mls/hr IV. 1000 / 1000 1000 / 1000 CONT .[id number] [facility] Rx#:[id number] Cleocin 900 mg/NS Premix 900 mg 50 / 50 100 / 100 In 50 ml @ 100 mls/hr IV.SIG Q8H [facility] Rx#:[id number] Oral 480 / 480 480 / 480 Output: Urine 400 / 400 Other: # Voids 3 3 Date of Last Bowel Movement 07/04/18 # Bowel Movements 0 0 06/29/18 11:28 Blood - Peripheral Aerobic Blood Culture - Final No growth in 5 days 06/29/18 11:28 Blood - Peripheral Anaerobic Blood Culture - Final No growth in 5 days 06/29/18 11:28 Blood - Peripheral Aerobic Blood Culture - Final No growth in 5 days 06/29/18 11:28 Blood - Peripheral Anaerobic Blood Culture - Final No growth in 5 days 07/02/18 13:00 Fluid - Other Gram Stain - Final 07/02/18 13:00 Fluid - Other Body Fluid Culture - Final 07/02/18 13:00 Fluid - Other Fungal Smear - Final No fungal elements seen 07/02/18 13:00 Fluid - Other Fungal Culture - Pending Lab - Hematology Results 07/02/18 07/03/18 07/04/18 04:36 03:53 03:45 WBC 21.8 H 30.0 H RBC 3.12 L 2.95 L Hgb 9.7 L 9.0 L Hct 29.6 L 28.0 L MCV 94.9 94.9 MCH 31.0 30.4 MCHC 32.7 32.0 RDW 19.6 H 20.2 H Plt Count 850 H 822 H MPV 9.6 9.6 Prelim Diff (Auto) Slide review pending Neut % (Auto) 90.3 H Lymph % (Auto) 5.3 L [place] % (Auto) 4.0 Eos % (Auto) 0.2 Baso % (Auto) 0.2 Neut # (Auto) 27.1 H Lymph # (Auto) 1.6 [place] # (Auto) 1.2 H Eos # (Auto) 0.1 Baso # (Auto) 0.1 WBC Differential Manual diff final Seg Neuts % (Manual) 79 H Band Neuts % (Manual) 10 H Lymphocytes % (Manual) 3 L Monocytes % (Manual) 5 Eosinophils % (Manual) 1 Metamyelocytes % (Man) 1 Plasma Cell % (Manual) 1 H Abs Neuts (Manual) 27.0 H Differential Comment . Platelet Estimate High H Platelet Morphology Normal Ovalocytes 1+ H Smear Path Review Lab - Chemistry Results 07/02/18 07/02/18 07/03/18 16:52 19:34 03:53 Sodium 142 Potassium 4.1 Chloride 107 Carbon Dioxide 22.3 Anion Gap 13 BUN 18 Creatinine 0.69 Estimated GFR Greater than 89 POC Glucose 286 H 269 H Random Glucose 256 H Calcium 9.4 07/03/18 07/04/18 07/04/18 11:29 03:45 08:16 Sodium 141 Potassium 4.1 Chloride 106 Carbon Dioxide 24.3 Anion Gap 11 BUN 25 H Creatinine 0.77 Estimated GFR Greater than 89 POC Glucose 326 H 376 H Random Glucose 302 H Calcium 9.1 Imaging: ITS Impressions Face CT 06/29/18 11:18 CONCLUSION: 1. There is an elongated rim-enhancing collection involving the left nasopharyngeal and oropharyngeal region characteristic of a peritonsillar abscess extending over several centimeters. 2. Is also an abscess is suspected in the region of the left submandibular gland with adjacent reactive adenopathy. Neck Ultrasound 07/02/18 00:00 CONCLUSION: 1. Small irregular fluid collection in the left submandibular region nonspecific, however possibility of abscess should be entertained. Physical Exam: PHYSICAL EXAMINATION: GENERAL: No acute distress. He is awake, alert and oriented. HEENT: The head is atraumatic. There is swelling at the left lower jaw which is firm and has very minimal tenderness. Extraocular movements grossly intact. Pupils reactive to light. No icterus. Oropharynx moist mucosa without lesions. NECK: Supple without adenopathy. LUNGS: Clear breath sounds. HEART: Regular S1, S2, without murmurs, rubs or gallops. ABDOMEN: Bowel sounds present. Soft, nontender. EXTREMITIES: No clubbing. No cyanosis or edema. SKIN: No rash. NEUROLOGIC: Nonfocal. PSYCHIATRIC: The patient is calm and cooperative. Assessment and Plan - Plan IMPRESSION: 1. Peritonsillar and submandibular abscess of the left. 2. Leukocytosis. 3. Diabetes mellitus. RECOMMENDATIONS: 1. Continue IV clindamycin. 2. Continue the steroids. 3. Monitor clinical response. When there is satisfactory response the patient can be switched to p.o. antibiotics. He will need to follow-up with ENT after discharge.
[2018-07-04] MEDS: Acetaminophen 325 MG Tablet PO PRN (22:11)
[2018-07-05] MEDS: Clindamycin 900 mg/NS Premix 900 MG/50 ML PIGGYBACK IV.SIG SCH ×3 (03:12→21:59)
[2018-07-05] MEDS: Sod Chloride 0.9% Inj 1,000 ML IV.CONT SCH ×2 (03:46→17:34)
[2018-07-05 07:14] LABS: Baso % (Auto) 0.2 % (0.0-2.0); Eos # (Auto) 0.1 th/mm3 (0.0-0.4); Eos % (Auto) 0.4 % (0.0-4.0); Hematocrit 28.2 % (39.0-51.0); Lymph % (Auto) 13.8 % (9.0-44.0); Mean Corpuscular HGB Conc 31.9 % (32.0-36.0); Mean Corpuscular Hemoglobin 30.3 pg (27.0-34.0); Mean Corpuscular Volume 95.1 fL (80.0-100.0); Mean Platelet Volume 9.6 fL (7.0-11.0); Mono # (Auto) 0.8 th/mm3 (0.0-0.9); Mono % (Auto) 3.8 % (0.0-8.0); Neut # (Auto) 18.1 th/mm3 (1.8-7.7); Neut % (Auto) 81.8 % (16.0-70.0); Platelet Count 790 th/mm3 (150-450); Red Blood Count 2.97 mil/mm3 (4.50-5.90); Red Cell Distribution Width 19.4 % (11.6-17.2); White Blood Count 22.1 th/mm3 (4.0-11.0)
[2018-07-05 07:42] LABS: Albumin 2.9 g/dL (3.4-5.0); Anion Gap 8 meq/L (5-15); Blood Urea Nitrogen 19 mg/dL (7-18); Calcium 8.7 mg/dL (8.5-10.1); Carbon Dioxide 25.8 meq/L (21.0-32.0); Chloride 108 meq/L (98-107); Glomerular Filtration Rate Greater Than 89 mL/min (>89); Glucose,Random 158 mg/dL (74-106); Phosphorus 2.9 mg/dL (2.5-4.9); Potassium 3.5 meq/L (3.5-5.1); Sodium 142 meq/L (136-145)
[2018-07-05 08:34] LABS: Lymphocytes 19 % (9-44); Metamyelocytes 1 % (0-1); Monocytes 3 % (0-8); Myelocytes 1 % (0-0); Ovalocytes 1+
[2018-07-05] MEDS: Senna/Docusate Sodium 8.6/50 MG Tablet PO SCH ×2 (09:28→20:35)
[2018-07-05] MEDS: amLODIPine 5 MG Tablet PO SCH (09:28)
[2018-07-05] MEDS: Enoxaparin Inj 30 MG/0.3 ML Syringe SQ SCH (09:29)
[2018-07-05] MEDS: Insulin NovoLOG Aspart Correctional Sugar Inj SQ SCH ×4 (09:30→22:04)
[2018-07-05] MEDS: Insulin Detemir Inj 1,000 UNIT/10 ML Vial SQ SCH ×2 (09:30→22:06)
[2018-07-05] MEDS: Lisinopril 20 MG Tablet PO SCH (09:31)
--- NOTE | 2018-07-05 12:17 | P.PNID ---
Subjective Remarks: Patient notes that he feels okay. Mandible/Neck mass is larger. Notes tenderness. He is able to open his mouth. Afebrile. 73-year-old white male who developed pain and fever and chills and altered mental status and presented to the emergency department for evaluation. The patient was noted to have swelling of the left mandible and was felt to have a peritonsillar and mandibular abscess. CT scan of the face was performed on 06/29/2018 because of swelling of the jaw and there was an elongated rim-enhancing collection involving the left nasopharyngeal and oropharyngeal region characteristic of a peritonsillar abscess extending over several centimeters and an abscess noted at the left submandibular gland with adjacent reactive adenopathy. The patient was evaluated by ENT. He just had attempted aspiration of fluid from the left mandibular area. His is at bedside. His reports that they did not get much fluid and she was told that it does not look like pus. The patient was started on Decadron and antibiotic was changed to clindamycin. This consultation was requested for antibiotic treatment. Past Medical History: PAST MEDICAL HISTORY: Diabetes mellitus, depression, gastric ulcer, hypertension, right knee arthroscopy. Allergies/Adverse Reactions: Allergies No Known Allergies Allergy (Unverified 06/29/18 11:11) Objective Vital Signs 07/04/18 16:10 07/04/18 20:00 07/04/18 20:07 Temperature 98.3 F 98.5 F Pulse Rate 72 80 63 Respiratory Rate 18 18 20 Blood Pressure 127/71 138/73 Pulse Oximetry 97 95 07/05/18 00:00 07/05/18 04:00 07/05/18 08:00 Temperature 98.2 F 97.7 F 97.4 F L Pulse Rate 58 L 53 L 55 L Respiratory Rate 18 16 18 Blood Pressure 116/58 L 137/69 127/72 Pulse Oximetry 97 95 96 Intake & Output 07/04/18 07/05/18 07/05/18 18:59 06:59 18:59 Intake Total 1470 / 1470 1340 / 1340 Balance 1470 / 1470 1340 / 1340 Weight 70.1 kg Intake: IV 1050 / 1050 1100 / 1100 NS Inj 1,000 ML @ 75 mls/hr IV. 1000 / 1000 1000 / 1000 CONT .[id number] [facility] Rx#:[id number] Cleocin 900 mg/NS Premix 900 mg 50 / 50 100 / 100 In 50 ml @ 100 mls/hr IV.SIG Q8H [facility] Rx#:[id number] Oral 420 / 420 240 / 240 Other: # Voids 4 2 Date of Last Bowel Movement 07/04/18 # Bowel Movements 1 1 06/29/18 11:28 Blood - Peripheral Aerobic Blood Culture - Final No growth in 5 days 06/29/18 11:28 Blood - Peripheral Anaerobic Blood Culture - Final No growth in 5 days 06/29/18 11:28 Blood - Peripheral Aerobic Blood Culture - Final No growth in 5 days 06/29/18 11:28 Blood - Peripheral Anaerobic Blood Culture - Final No growth in 5 days 07/02/18 13:00 Fluid - Other Gram Stain - Final 07/02/18 13:00 Fluid - Other Body Fluid Culture - Final 07/02/18 13:00 Fluid - Other Fungal Smear - Final No fungal elements seen 07/02/18 13:00 Fluid - Other Fungal Culture - Pending Lab - Hematology Results 07/04/18 07/05/18 03:45 05:49 WBC 30.0 H 22.1 H RBC 2.95 L 2.97 L Hgb 9.0 L 9.0 L Hct 28.0 L 28.2 L MCV 94.9 95.1 MCH 30.4 30.3 MCHC 32.0 31.9 L RDW 20.2 H 19.4 H Plt Count 822 H 790 H MPV 9.6 9.6 Prelim Diff (Auto) Slide review pending Slide review pending Neut % (Auto) 90.3 H 81.8 H Lymph % (Auto) 5.3 L 13.8 [place] % (Auto) 4.0 3.8 Eos % (Auto) 0.2 0.4 Baso % (Auto) 0.2 0.2 Neut # (Auto) 27.1 H 18.1 H Lymph # (Auto) 1.6 3.0 [place] # (Auto) 1.2 H 0.8 Eos # (Auto) 0.1 0.1 Baso # (Auto) 0.1 0.0 WBC Differential Manual diff final Manual diff final Seg Neuts % (Manual) 79 H 75 H Band Neuts % (Manual) 10 H 1 Lymphocytes % (Manual) 3 L 19 Monocytes % (Manual) 5 3 Eosinophils % (Manual) 1 Metamyelocytes % (Man) 1 1 Myelocytes % (Man) 1 H Plasma Cell % (Manual) 1 H Abs Neuts (Manual) 27.0 H 17.2 H Differential Comment . . Platelet Estimate High H High H Platelet Morphology Normal Enlarged H Ovalocytes 1+ H 1+ H Keratocytes Occ H Lab - Chemistry Results 07/04/18 07/04/18 07/05/18 03:45 08:16 05:49 Sodium 141 142 Potassium 4.1 3.5 Chloride 106 108 H Carbon Dioxide 24.3 25.8 Anion Gap 11 8 BUN 25 H 19 H Creatinine 0.77 0.76 Estimated GFR Greater than 89 Greater than 89 POC Glucose 376 H Random Glucose 302 H 158 H D Calcium 9.1 8.7 Phosphorus 2.9 Magnesium 2.0 Albumin 2.9 L 07/05/18 07:53 Sodium Potassium Chloride Carbon Dioxide Anion Gap BUN Creatinine Estimated GFR POC Glucose 169 H Random Glucose Calcium Phosphorus Magnesium Albumin Imaging: ITS Impressions Face CT 06/29/18 11:18 CONCLUSION: 1. There is an elongated rim-enhancing collection involving the left nasopharyngeal and oropharyngeal region characteristic of a peritonsillar abscess extending over several centimeters. 2. Is also an abscess is suspected in the region of the left submandibular gland with adjacent reactive adenopathy. Neck Ultrasound 07/02/18 00:00 CONCLUSION: 1. Small irregular fluid collection in the left submandibular region nonspecific, however possibility of abscess should be entertained. Physical Exam: PHYSICAL EXAMINATION: GENERAL: No acute distress. He is awake, alert and oriented. HEENT: The head is atraumatic. The swelling at the left lower jaw is increased. No erythema. Extraocular movements grossly intact. Pupils reactive to light. No icterus. Oropharynx moist mucosa without lesions. NECK: Supple without adenopathy. LUNGS: Clear breath sounds. HEART: Regular S1, S2, without murmurs, rubs or gallops. ABDOMEN: Bowel sounds present. Soft, nontender. EXTREMITIES: No clubbing. No cyanosis or edema. SKIN: No rash. NEUROLOGIC: Nonfocal. PSYCHIATRIC: The patient is calm and cooperative. Assessment and Plan - Plan IMPRESSION: 1. Peritonsillar and submandibular abscess of the left. 2. Leukocytosis. WB remain elevated. 3. Diabetes mellitus. RECOMMENDATIONS: 1. Continue IV clindamycin. 2. Add Levaquin. 3. Repeat CT scan of the neck. Aspiration of fluid for culture if present and feasible. May need to consider biopsy. 4. Follow WBC. Discussed with daughter at bedside.
[2018-07-05] MEDS: Acetaminophen 325 MG Tablet PO PRN (13:35)
--- NOTE | 2018-07-05 14:50 | P.PNIM ---
Subjective Interval history: Patient notes pain and swelling to left jaw/face worse since last night. Denies any chest pain or shortness of breath. Physical Exam Vital signs: Vital Signs 07/04/18 16:10 07/04/18 20:00 07/04/18 20:07 Temperature 98.3 F 98.5 F Pulse Rate 72 80 63 Respiratory Rate 18 18 20 Blood Pressure 127/71 138/73 Pulse Oximetry 97 95 07/05/18 00:00 07/05/18 04:00 07/05/18 08:00 Temperature 98.2 F 97.7 F 97.4 F L Pulse Rate 58 L 53 L 55 L Respiratory Rate 18 16 18 Blood Pressure 116/58 L 137/69 127/72 Pulse Oximetry 97 95 96 07/05/18 12:00 Temperature 98.2 F Pulse Rate 63 Respiratory Rate 18 Blood Pressure 130/74 Pulse Oximetry 95 Intake & Output 07/04/18 07/05/18 07/05/18 18:59 06:59 18:59 Intake Total 1470 / 1470 1340 / 1340 50 / 50 Balance 1470 / 1470 1340 / 1340 50 / 50 Weight 70.1 kg Intake: IV 1050 / 1050 1100 / 1100 50 / 50 NS Inj 1,000 ML @ 75 mls/hr IV. 1000 / 1000 1000 / 1000 CONT .[id number] [facility] Rx#:[id number] Cleocin 900 mg/NS Premix 900 mg 50 / 50 100 / 100 50 / 50 In 50 ml @ 100 mls/hr IV.SIG Q8H [facility] Rx#:[id number] Oral 420 / 420 240 / 240 Other: # Voids 4 2 Date of Last Bowel Movement 07/04/18 # Bowel Movements 1 1 Narrative: GENERAL: Sitting up in chair. Appears comfortable. SKIN: Warm and dry. HEAD: Normocephalic. EYES: No scleral icterus. No injection or drainage. NECK: Supple, trachea midline. No JVD. CARDIOVASCULAR: Regular rate and rhythm without murmurs, gallops, or rubs. RESPIRATORY: Breath sounds equal bilaterally. No accessory muscle use. GASTROINTESTINAL: Abdomen soft, non-tender, nondistended. MUSCULOSKELETAL: No cyanosis, or edema. BACK: Nontender without obvious deformity. No CVA tenderness. Results - Labs CBC & Chem 7: 07/05/18 05:49 07/05/18 05:49 Laboratory Results - last 24 hr 07/05/18 07/05/18 07/05/18 05:49 05:49 07:53 WBC 22.1 H RBC 2.97 L Hgb 9.0 L Hct 28.2 L MCV 95.1 MCH 30.3 MCHC 31.9 L RDW 19.4 H Plt Count 790 H MPV 9.6 Prelim Diff (Auto) Slide review pending Neut % (Auto) 81.8 H Lymph % (Auto) 13.8 [place] % (Auto) 3.8 Eos % (Auto) 0.4 Baso % (Auto) 0.2 Neut # (Auto) 18.1 H Lymph # (Auto) 3.0 [place] # (Auto) 0.8 Eos # (Auto) 0.1 Baso # (Auto) 0.0 WBC Differential Manual diff final Seg Neuts % (Manual) 75 H Band Neuts % (Manual) 1 Lymphocytes % (Manual) 19 Monocytes % (Manual) 3 Metamyelocytes % (Man) 1 Myelocytes % (Man) 1 H Abs Neuts (Manual) 17.2 H Differential Comment . Platelet Estimate High H Platelet Morphology Enlarged H Ovalocytes 1+ H Keratocytes Occ H Sodium 142 Potassium 3.5 Chloride 108 H Carbon Dioxide 25.8 Anion Gap 8 BUN 19 H Creatinine 0.76 Estimated GFR Greater than 89 POC Glucose 169 H Random Glucose 158 H D Calcium 8.7 Phosphorus 2.9 Magnesium 2.0 Albumin 2.9 L 07/05/18 12:33 WBC RBC Hgb Hct MCV MCH MCHC RDW Plt Count MPV Prelim Diff (Auto) Neut % (Auto) Lymph % (Auto) [place] % (Auto) Eos % (Auto) Baso % (Auto) Neut # (Auto) Lymph # (Auto) [place] # (Auto) Eos # (Auto) Baso # (Auto) WBC Differential Seg Neuts % (Manual) Band Neuts % (Manual) Lymphocytes % (Manual) Monocytes % (Manual) Metamyelocytes % (Man) Myelocytes % (Man) Abs Neuts (Manual) Differential Comment Platelet Estimate Platelet Morphology Ovalocytes Keratocytes Sodium Potassium Chloride Carbon Dioxide Anion Gap BUN Creatinine Estimated GFR POC Glucose 211 H Random Glucose Calcium Phosphorus Magnesium Albumin Microbiology 06/29/18 11:28 Blood - Peripheral Aerobic Blood Culture - Final No growth in 5 days 06/29/18 11:28 Blood - Peripheral Anaerobic Blood Culture - Final No growth in 5 days 06/29/18 11:28 Blood - Peripheral Aerobic Blood Culture - Final No growth in 5 days 06/29/18 11:28 Blood - Peripheral Anaerobic Blood Culture - Final No growth in 5 days Assessment and Plan - Assessment (1) Peritonsillar abscess Code(s): J36 - Peritonsillar abscess Status: Acute (2) Mandibular abscess Code(s): M27.2 - Inflammatory conditions of jaws Status: Acute (3) HTN (hypertension) Code(s): I10 - Essential (primary) hypertension Status: Chronic (4) Type 2 diabetes mellitus Code(s): E11.9 - Type 2 diabetes mellitus without complications Status: Chronic (5) Depression Code(s): F32.9 - Major depressive disorder, single episode, unspecified Status : Chronic - Plan 73-year-old with past history of type 2 diabetes, gastric ulcer, hypertension, and depression, admitted for mandibular abscess and peritonsillar abscess. //Peritonsillar and mandibular abscess -WMuch improved today per patient report -ENT on board - attempted needle aspiration on 07/02 with very little fluid return -Gram stain/culture and fungal smear/culture pending -Blood cultures pending negative x3 days -Continue Decadron 10mg q8h IV -Continue mechanical soft diet with Glucerna shakes BID = Patient doing better. Drinking triglycerides with every meal. Continue antibiotics as per infectious disease. Gram-positive cocci on needle aspiration from 07/02. Follow-up sensitivities. Discontinue steroids as per ENT. Continue to monitor closely. = 07/05. Worsening swelling left face. Levaquin has been added by infectious disease. CT as well as ultrasound pending. Appreciate ENT/ID assistance. //Type 2 diabetes -SSI w/ accuchecks -After steroids was started, blood glucose increased to 286 -Needed 12 units SSI in the last 24 hrs which represents a big increase from previous -Consider starting Levemir tonight as long as patient is eating well = Glucose in the 300s. Steroids will be discontinued. Adjust insulin sliding scale. Discussed with nurse. = Glucose improved with sugars in the 160s this morning. Continue current regimen. //HTN -BP has improved to a high of low 150's systolic -Continue Amlodipine 10mg PO daily and Lisinopril 40mg PO daily -Clonidine per protocol = Blood pressure acceptable. Continue to monitor. //Gastric Ulcer -Continue Protonix //Depression -Continue home paroxetine //Unintentional weight loss -Patient and spouse report unintenional weight loss of at least 18 lbs over a 6- month period -Abnormal neutrophils, plasma cells, and metamyelocytes identified on CBC differential as well as elevated platelets of 850 -Need to rule out CML -Pathology smear review still pending = Peripheral smear pending. //Continue Lovenox for DVT prophylaxis Discussed Condition With: Patient, spouse, and patient's nurse Discharge Planning: Pending ENT, ID clearance. (3) HTN (hypertension) Qualifiers: Hypertension type: essential hypertension Qualified Code(s): I10 - Essential (primary) hypertension (4) Type 2 diabetes mellitus Qualifiers: Diabetes mellitus client support representative insulin use: without long-term use Diabetes mellitus complication status: with unspecified complications Qualified Code(s) : E11.8 - Type 2 diabetes mellitus with unspecified complications (5) Depression Qualifiers: Depression Type: major depressive disorder Major depression recurrence: recurrent Active/Remission status: in partial remission Qualified Code(s): F33.41 - Major depressive disorder, recurrent, in partial remission
--- NOTE | 2018-07-05 19:33 | CT ---
EXAM DATE: 07/05/2018 7:19 PM EDT AGE/SEX: 73 years / Male INDICATIONS: Evaluate left sided next mass. CLINICAL DATA: This is the patient's initial encounter. Patient reports that signs and symptoms have been present for 1 day and indicates a pain score of 3/10. MEDICAL/SURGICAL HISTORY: Hypertension. Diabetes. None. RADIATION DOSE: 14.29 CTDI (mGy) COMPARISON: . TECHNIQUE: Helical acquisition was performed using a multirow detector CT scanner during the adminis tration of 66 ml Omnipaque 350 (iohexol) nonionic water-soluble contrast as a single exam dose. Usi ng automated exposure control and adjustment of the mA and/or kV according to patient size, radiation dose was kept as low as reasonably achievable to obtain optimal diagnostic quality images. DICOM fo rmat image data is available electronically for review and comparison. FINDINGS: Nasopharynx: The nasopharyngeal airway has a normal configuration. No mucosal thickening or mass is seen. Oropharynx: The intrinsic muscles of the tongue are symmetric. There is asymmetric enlargement of th e left tonsillar pillar and swelling of the left aryepiglottic folds. The prevertebral soft tissues a re not thickened. Larynx: The supraglottic, glottic, and infraglottic structures are intact. Parapharyngeal: The parapharyngeal space is intact. Salivary Glands: The parotid glands are intact. There is a complex fluid collection within the left submandibular region measuring 4.1 x 3.7 cm which is indeterminate. Abscess remains in the differenti al. Necrotic mass is also in the differential but is less likely. Clinical correlation is recommended . Lymph Nodes: No enlarged or necrotic-appearing nodes. Thyroid: Homogeneous enhancement without evidence of nodule. Bones: Diffuse cervical spondylosis is noted. CONCLUSION: 1. Complex fluid collection within the left submandibular region measuring 4.1 x 3.7 cm which is ind eterminate. Abscess remains in the differential. Necrotic mass is also in the differential but is les s likely. Clinical correlation is recommended. There is asymmetric swelling of the left tonsillar pil lar and swelling of the left aryepiglottic folds also. Electronically signed by: Manoj Moraes MD 07/05/2018 7:32 PM EDT
[2018-07-06] MEDS: Acetaminophen 325 MG Tablet PO PRN ×3 (00:11→20:12)
[2018-07-06] MEDS: Sod Chloride 0.9% Inj 1,000 ML IV.CONT SCH ×3 (03:47→20:13)
[2018-07-06] MEDS: Clindamycin 900 mg/NS Premix 900 MG/50 ML PIGGYBACK IV.SIG SCH ×3 (03:49→20:13)
[2018-07-06 07:25] LABS: Baso # (Auto) 0.1 th/mm3 (0.0-0.2); Baso % (Auto) 0.4 % (0.0-2.0); Eos # (Auto) 0.3 th/mm3 (0.0-0.4); Eos % (Auto) 1.7 % (0.0-4.0); Hematocrit 29.2 % (39.0-51.0); Hemoglobin 9.4 gm/dL (13.0-17.0); Lymph # (Auto) 3.2 th/mm3 (1.0-4.8); Lymph % (Auto) 18.9 % (9.0-44.0); Mean Corpuscular HGB Conc 32.3 % (32.0-36.0); Mean Corpuscular Hemoglobin 30.6 pg (27.0-34.0); Mean Corpuscular Volume 94.7 fL (80.0-100.0); Mean Platelet Volume 9.4 fL (7.0-11.0); Mono # (Auto) 0.9 th/mm3 (0.0-0.9); Mono % (Auto) 5.3 % (0.0-8.0); Neut # (Auto) 12.6 th/mm3 (1.8-7.7); Neut % (Auto) 73.7 % (16.0-70.0); Platelet Count 835 th/mm3 (150-450); Red Blood Count 3.08 mil/mm3 (4.50-5.90); Red Cell Distribution Width 20.1 % (11.6-17.2); White Blood Count 17.1 th/mm3 (4.0-11.0)
[2018-07-06 07:49] LABS: Anion Gap 11 meq/L (5-15); Blood Urea Nitrogen 12 mg/dL (7-18); Calcium 9.2 mg/dL (8.5-10.1); Carbon Dioxide 26.2 meq/L (21.0-32.0); Chloride 106 meq/L (98-107); Glomerular Filtration Rate Greater Than 89 mL/min (>89); Glucose,Random 161 mg/dL (74-106); Magnesium 1.8 mg/dL (1.5-2.5); Potassium 3.7 meq/L (3.5-5.1); Sodium 143 meq/L (136-145)
[2018-07-06 07:50] LABS: Phosphorus 3.3 mg/dL (2.5-4.9)
[2018-07-06] MEDS: Enoxaparin Inj 30 MG/0.3 ML Syringe SQ SCH (08:50)
[2018-07-06] MEDS: Lisinopril 20 MG Tablet PO SCH (08:51)
[2018-07-06] MEDS: amLODIPine 5 MG Tablet PO SCH (08:51)
[2018-07-06] MEDS: Insulin Detemir Inj 1,000 UNIT/10 ML Vial SQ SCH ×2 (08:53→20:13)
[2018-07-06] MEDS: Senna/Docusate Sodium 8.6/50 MG Tablet PO SCH ×2 (08:54→20:14)
[2018-07-06] MEDS: Insulin NovoLOG Aspart Correctional Sugar Inj SQ SCH ×4 (08:54→20:14)
[2018-07-06 10:37] LABS: Eosinophils 1 % (0-4); Lymphocytes 21 % (9-44); Metamyelocytes 2 % (0-1); Monocytes 4 % (0-8); Tallied Nucleated RBC 2 (0-0)
[2018-07-06 10:38] LABS: Ovalocytes 1+
--- NOTE | 2018-07-06 11:38 | P.PNID ---
Subjective Remarks: Patient notes that he feels okay. Mandible/Neck mass is larger. Notes tenderness. Afebrile. CT scan of the neck on 07/05/2018 shows complex loculated fluid collection. 73-year-old white male who developed pain and fever and chills and altered mental status and presented to the emergency department for evaluation. The patient was noted to have swelling of the left mandible and was felt to have a peritonsillar and mandibular abscess. CT scan of the face was performed on 06/29/2018 because of swelling of the jaw and there was an elongated rim-enhancing collection involving the left nasopharyngeal and oropharyngeal region characteristic of a peritonsillar abscess extending over several centimeters and an abscess noted at the left submandibular gland with adjacent reactive adenopathy. Past Medical History: PAST MEDICAL HISTORY: Diabetes mellitus, depression, gastric ulcer, hypertension, right knee arthroscopy. Allergies/Adverse Reactions: Allergies No Known Allergies Allergy (Unverified 06/29/18 11:11) Objective Vital Signs 07/05/18 12:00 07/05/18 16:00 07/05/18 20:00 Temperature 98.2 F 98.1 F 97.9 F Pulse Rate 63 61 64 Respiratory Rate 18 18 18 Blood Pressure 130/74 134/71 136/75 Pulse Oximetry 95 97 96 07/06/18 00:00 07/06/18 04:00 07/06/18 08:00 Temperature 97.9 F 98.1 F 97.7 F Pulse Rate 57 L 56 L 60 Respiratory Rate 16 18 16 Blood Pressure 153/80 H 151/74 H 149/79 H Pulse Oximetry 98 95 95 Intake & Output 07/05/18 07/06/18 07/06/18 18:59 06:59 18:59 Intake Total 1800 / 1800 1490 / 1490 Output Total 2 / 2 Balance 1800 / 1800 1488 / 1488 Weight 71 kg Intake: IV 1200 / 1200 1250 / 1250 NS Inj 1,000 ML @ 75 mls/hr IV. 1000 / 1000 1150 / 1150 CONT .[id number] [facility] Rx#:[id number] Cleocin 900 mg/NS Premix 900 mg 50 / 50 100 / 100 In 50 ml @ 100 mls/hr IV.SIG Q8H [facility] Rx#:[id number] Levaquin 750 mg Premix Inj 150 150 / 150 ML @ 100 mls/hr IV.SIG Q24H [facility] Rx#:[id number] Oral 600 / 600 240 / 240 Output: Urine 2 / 2 Other: # Voids 4 Date of Last Bowel Movement 07/05/18 # Bowel Movements 1 0 06/29/18 11:28 Blood - Peripheral Aerobic Blood Culture - Final No growth in 5 days 06/29/18 11:28 Blood - Peripheral Anaerobic Blood Culture - Final No growth in 5 days 06/29/18 11:28 Blood - Peripheral Aerobic Blood Culture - Final No growth in 5 days 06/29/18 11:28 Blood - Peripheral Anaerobic Blood Culture - Final No growth in 5 days 07/02/18 13:00 Fluid - Other Gram Stain - Final 07/02/18 13:00 Fluid - Other Body Fluid Culture - Final 07/02/18 13:00 Fluid - Other Fungal Smear - Final No fungal elements seen 07/02/18 13:00 Fluid - Other Fungal Culture - Pending Lab - Hematology Results 07/05/18 07/06/18 05:49 06:43 WBC 22.1 H 17.1 H RBC 2.97 L 3.08 L Hgb 9.0 L 9.4 L Hct 28.2 L 29.2 L MCV 95.1 94.7 MCH 30.3 30.6 MCHC 31.9 L 32.3 RDW 19.4 H 20.1 H Plt Count 790 H 835 H MPV 9.6 9.4 Prelim Diff (Auto) Slide review pending Slide review pending Neut % (Auto) 81.8 H 73.7 H Lymph % (Auto) 13.8 18.9 [place] % (Auto) 3.8 5.3 Eos % (Auto) 0.4 1.7 Baso % (Auto) 0.2 0.4 Neut # (Auto) 18.1 H 12.6 H Lymph # (Auto) 3.0 3.2 [place] # (Auto) 0.8 0.9 Eos # (Auto) 0.1 0.3 Baso # (Auto) 0.0 0.1 WBC Differential Manual diff final Manual diff final Seg Neuts % (Manual) 75 H 63 Band Neuts % (Manual) 1 9 H Lymphocytes % (Manual) 19 21 Monocytes % (Manual) 3 4 Eosinophils % (Manual) 1 Metamyelocytes % (Man) 1 2 H Myelocytes % (Man) 1 H Abs Neuts (Manual) 17.2 H 12.7 H Nucleated RBCs/100 WBC 2 H Differential Comment . . Platelet Estimate High H High H Platelet Morphology Enlarged H Enlarged H Ovalocytes 1+ H 1+ H Keratocytes Occ H Lab - Chemistry Results 07/05/18 07/05/18 07/05/18 05:49 07:53 12:33 Sodium 142 Potassium 3.5 Chloride 108 H Carbon Dioxide 25.8 Anion Gap 8 BUN 19 H Creatinine 0.76 Estimated GFR Greater than 89 POC Glucose 169 H 211 H Random Glucose 158 H D Calcium 8.7 Phosphorus 2.9 Magnesium 2.0 Albumin 2.9 L 07/05/18 07/05/18 07/06/18 17:48 20:50 06:43 Sodium 143 Potassium 3.7 Chloride 106 Carbon Dioxide 26.2 Anion Gap 11 BUN 12 Creatinine 0.76 Estimated GFR Greater than 89 POC Glucose 149 H 242 H Random Glucose 161 H Calcium 9.2 Phosphorus 3.3 Magnesium 1.8 Albumin 3.0 L 07/06/18 07:54 Sodium Potassium Chloride Carbon Dioxide Anion Gap BUN Creatinine Estimated GFR POC Glucose 183 H Random Glucose Calcium Phosphorus Magnesium Albumin Imaging: ITS Impressions Face CT 06/29/18 11:18 CONCLUSION: 1. There is an elongated rim-enhancing collection involving the left nasopharyngeal and oropharyngeal region characteristic of a peritonsillar abscess extending over several centimeters. 2. Is also an abscess is suspected in the region of the left submandibular gland with adjacent reactive adenopathy. Neck Ultrasound 07/02/18 00:00 CONCLUSION: 1. Small irregular fluid collection in the left submandibular region nonspecific, however possibility of abscess should be entertained. Soft Tissue Neck CT 07/05/18 00:00 CONCLUSION: 1. Complex fluid collection within the left submandibular region measuring 4.1 x 3.7 cm which is indeterminate. Abscess remains in the differential. Necrotic mass is also in the differential but is less likely. Clinical correlation is recommended. There is asymmetric swelling of the left tonsillar pillar and swelling of the left aryepiglottic folds also. Physical Exam: PHYSICAL EXAMINATION: GENERAL: Currently somnolent but in no distress. HEENT: The head is atraumatic. The swelling at the left lower jaw is a little fluctuant. No erythema. Extraocular movements grossly intact. Pupils reactive to light. No icterus. Oropharynx moist mucosa without lesions. NECK: Supple without adenopathy. LUNGS: Clear breath sounds. HEART: Regular S1, S2, without murmurs, rubs or gallops. ABDOMEN: Bowel sounds present. Soft, nontender. EXTREMITIES: No clubbing. No cyanosis or edema. SKIN: No rash. NEUROLOGIC: Nonfocal. PSYCHIATRIC: Calm and cooperative. Assessment and Plan - Plan IMPRESSION: 1. Peritonsillar and submandibular abscess/possible necrotic mass of the left. No improvement. 2. Leukocytosis. WB remain elevated. 3. Diabetes mellitus. RECOMMENDATIONS: 1. Continue IV clindamycin. 2. Continue Levaquin. 3. Consider aspiration of fluid for culture if present and feasible. May need to consider biopsy. I have put out a call to radiology. 4. Follow WBC. Discussed with daughter at bedside.
--- NOTE | 2018-07-06 16:18 | P.PNIM ---
Subjective Interval history: Patient says he is actually feeling all right. Denies any chest pain or shortness of breath. Worsening swelling on the left neck, however reports pain is under control. Physical Exam Vital signs: Vital Signs 07/05/18 20:00 07/06/18 00:00 07/06/18 04:00 Temperature 97.9 F 97.9 F 98.1 F Pulse Rate 64 57 L 56 L Respiratory Rate 18 16 18 Blood Pressure 136/75 153/80 H 151/74 H Pulse Oximetry 96 98 95 07/06/18 08:00 07/06/18 12:00 Temperature 97.7 F 98.3 F Pulse Rate 60 61 Respiratory Rate 16 16 Blood Pressure 149/79 H 149/76 H Pulse Oximetry 95 95 Intake & Output 07/05/18 07/06/18 07/06/18 18:59 06:59 18:59 Intake Total 1800 / 1800 1490 / 1490 200 / 200 Output Total 2 / 2 Balance 1800 / 1800 1488 / 1488 200 / 200 Weight 71 kg Intake: IV 1200 / 1200 1250 / 1250 200 / 200 NS Inj 1,000 ML @ 75 mls/hr IV. 1000 / 1000 1150 / 1150 CONT .[id number] [facility] Rx#:[id number] Cleocin 900 mg/NS Premix 900 mg 50 / 50 100 / 100 50 / 50 In 50 ml @ 100 mls/hr IV.SIG Q8H [facility] Rx#:[id number] Levaquin 750 mg Premix Inj 150 150 / 150 150 / 150 ML @ 100 mls/hr IV.SIG Q24H [facility] Rx#:[id number] Oral 600 / 600 240 / 240 Output: Urine 2 / 2 Other: # Voids 4 Date of Last Bowel Movement 07/05/18 # Bowel Movements 1 0 Narrative: GENERAL: Sitting up in chair. Appears comfortable. SKIN: Warm and dry. HEAD: Normocephalic. EYES: No scleral icterus. No injection or drainage. NECK: trachea midline. No JVD. Left-sided induration, swelling. No erythema. CARDIOVASCULAR: Regular rate and rhythm without murmurs, gallops, or rubs. RESPIRATORY: Breath sounds equal bilaterally. No accessory muscle use. GASTROINTESTINAL: Abdomen soft, non-tender, nondistended. MUSCULOSKELETAL: No cyanosis, or edema. BACK: Nontender without obvious deformity. No CVA tenderness. Results - Labs CBC & Chem 7: 07/06/18 06:43 07/06/18 06:43 Laboratory Results - last 24 hr 07/05/18 07/05/18 07/06/18 17:48 20:50 06:43 WBC 17.1 H RBC 3.08 L Hgb 9.4 L Hct 29.2 L MCV 94.7 MCH 30.6 MCHC 32.3 RDW 20.1 H Plt Count 835 H MPV 9.4 Prelim Diff (Auto) Slide review pending Neut % (Auto) 73.7 H Lymph % (Auto) 18.9 [place] % (Auto) 5.3 Eos % (Auto) 1.7 Baso % (Auto) 0.4 Neut # (Auto) 12.6 H Lymph # (Auto) 3.2 [place] # (Auto) 0.9 Eos # (Auto) 0.3 Baso # (Auto) 0.1 WBC Differential Manual diff final Seg Neuts % (Manual) 63 Band Neuts % (Manual) 9 H Lymphocytes % (Manual) 21 Monocytes % (Manual) 4 Eosinophils % (Manual) 1 Metamyelocytes % (Man) 2 H Abs Neuts (Manual) 12.7 H Nucleated RBCs/100 WBC 2 H Differential Comment . Platelet Estimate High H Platelet Morphology Enlarged H Ovalocytes 1+ H Sodium Potassium Chloride Carbon Dioxide Anion Gap BUN Creatinine Estimated GFR POC Glucose 149 H 242 H Random Glucose Calcium Phosphorus Magnesium Albumin 07/06/18 07/06/18 07/06/18 06:43 07:54 13:21 WBC RBC Hgb Hct MCV MCH MCHC RDW Plt Count MPV Prelim Diff (Auto) Neut % (Auto) Lymph % (Auto) [place] % (Auto) Eos % (Auto) Baso % (Auto) Neut # (Auto) Lymph # (Auto) [place] # (Auto) Eos # (Auto) Baso # (Auto) WBC Differential Seg Neuts % (Manual) Band Neuts % (Manual) Lymphocytes % (Manual) Monocytes % (Manual) Eosinophils % (Manual) Metamyelocytes % (Man) Abs Neuts (Manual) Nucleated RBCs/100 WBC Differential Comment Platelet Estimate Platelet Morphology Ovalocytes Sodium 143 Potassium 3.7 Chloride 106 Carbon Dioxide 26.2 Anion Gap 11 BUN 12 Creatinine 0.76 Estimated GFR Greater than 89 POC Glucose 183 H 228 H Random Glucose 161 H Calcium 9.2 Phosphorus 3.3 Magnesium 1.8 Albumin 3.0 L - Imaging Impressions Soft Tissue Neck CT 07/05/18 00:00 CONCLUSION: 1. Complex fluid collection within the left submandibular region measuring 4.1 x 3.7 cm which is indeterminate. Abscess remains in the differential. Necrotic mass is also in the differential but is less likely. Clinical correlation is recommended. There is asymmetric swelling of the left tonsillar pillar and swelling of the left aryepiglottic folds also. Assessment and Plan - Assessment (1) Peritonsillar abscess Code(s): J36 - Peritonsillar abscess Status: Acute (2) Mandibular abscess Code(s): M27.2 - Inflammatory conditions of jaws Status: Acute (3) HTN (hypertension) Code(s): I10 - Essential (primary) hypertension Status: Chronic (4) Type 2 diabetes mellitus Code(s): E11.9 - Type 2 diabetes mellitus without complications Status: Chronic (5) Depression Code(s): F32.9 - Major depressive disorder, single episode, unspecified Status : Chronic - Plan 73-year-old with past history of type 2 diabetes, gastric ulcer, hypertension, and depression, admitted for mandibular abscess and peritonsillar abscess. //Peritonsillar and mandibular abscess -WMuch improved today per patient report -ENT on board - attempted needle aspiration on 07/02 with very little fluid return -Gram stain/culture and fungal smear/culture pending -Blood cultures pending negative x3 days -Continue Decadron 10mg q8h IV -Continue mechanical soft diet with Glucerna shakes BID = Patient doing better. Drinking triglycerides with every meal. Continue antibiotics as per infectious disease. Gram-positive cocci on needle aspiration from 07/02. Follow-up sensitivities. Discontinue steroids as per ENT. Continue to monitor closely. = 07/05. Worsening swelling left face. Levaquin has been added by infectious disease. CT as well as ultrasound pending. Appreciate ENT/ID assistance. = 07/06. CT shows loculated fluid collection left neck. Discussed with infectious disease, excellent facial surgery who says this is not a tooth problem, ENT who saw patient previously, as well as have contacted in place consult for ENT professor of public administration today. //Type 2 diabetes -SSI w/ accuchecks -After steroids was started, blood glucose increased to 286 -Needed 12 units SSI in the last 24 hrs which represents a big increase from previous -Consider starting Levemir tonight as long as patient is eating well = Glucose in the 300s. Steroids will be discontinued. Adjust insulin sliding scale. Discussed with nurse. = Glucose improved with sugars in the 160s this morning. Continue current regimen. //HTN -BP has improved to a high of low 150's systolic -Continue Amlodipine 10mg PO daily and Lisinopril 40mg PO daily -Clonidine per protocol = Blood pressure acceptable. Continue to monitor. //Gastric Ulcer -Continue Protonix //Depression -Continue home paroxetine //Unintentional weight loss -Patient and spouse report unintenional weight loss of at least 18 lbs over a 6- month period -Abnormal neutrophils, plasma cells, and metamyelocytes identified on CBC differential as well as elevated platelets of 850 -Need to rule out CML = 07/06. Peripheral smear with some abnormalities, however likely reactive. secondary to Infectious process until proven otherwise //Continue Lovenox for DVT prophylaxis Discussed Condition With: Patient, spouse, and patient's nurse Discharge Planning: Pending ENT, ID clearance. (3) HTN (hypertension) Qualifiers: Hypertension type: essential hypertension Qualified Code(s): I10 - Essential (primary) hypertension (4) Type 2 diabetes mellitus Qualifiers: Diabetes mellitus exterminator helper insulin use: without exterminator helper use Diabetes mellitus complication status: with unspecified complications Qualified Code(s) : E11.8 - Type 2 diabetes mellitus with unspecified complications (5) Depression Qualifiers: Depression Type: major depressive disorder Major depression recurrence: recurrent Active/Remission status: in partial remission Qualified Code(s): F33.41 - Major depressive disorder, recurrent, in partial remission
[2018-07-07] MEDS: Clindamycin 900 mg/NS Premix 900 MG/50 ML PIGGYBACK IV.SIG SCH ×3 (03:07→20:11)
[2018-07-07 04:49] LABS: Baso # (Auto) 0.1 th/mm3 (0.0-0.2); Baso % (Auto) 0.3 % (0.0-2.0); Eos # (Auto) 0.3 th/mm3 (0.0-0.4); Eos % (Auto) 1.8 % (0.0-4.0); Hematocrit 28.5 % (39.0-51.0); Hemoglobin 9.2 gm/dL (13.0-17.0); Lymph # (Auto) 3.8 th/mm3 (1.0-4.8); Lymph % (Auto) 20.6 % (9.0-44.0); Mean Corpuscular HGB Conc 32.2 % (32.0-36.0); Mean Corpuscular Hemoglobin 30.7 pg (27.0-34.0); Mean Corpuscular Volume 95.3 fL (80.0-100.0); Mean Platelet Volume 9.4 fL (7.0-11.0); Mono # (Auto) 0.8 th/mm3 (0.0-0.9); Mono % (Auto) 4.6 % (0.0-8.0); Neut # (Auto) 13.3 th/mm3 (1.8-7.7); Neut % (Auto) 72.7 % (16.0-70.0); Platelet Count 749 th/mm3 (150-450); Red Blood Count 2.99 mil/mm3 (4.50-5.90); Red Cell Distribution Width 19.6 % (11.6-17.2); White Blood Count 18.3 th/mm3 (4.0-11.0)
[2018-07-07 05:09] LABS: Albumin 2.8 g/dL (3.4-5.0); Anion Gap 6 meq/L (5-15); Blood Urea Nitrogen 13 mg/dL (7-18); Carbon Dioxide 31.2 meq/L (21.0-32.0); Chloride 105 meq/L (98-107); Glomerular Filtration Rate Greater Than 89 mL/min (>89); Glucose,Random 88 mg/dL (74-106); Magnesium 1.8 mg/dL (1.5-2.5); Potassium 3.9 meq/L (3.5-5.1); Sodium 142 meq/L (136-145)
[2018-07-07 08:25] LABS: Eosinophils 2 % (0-4); Lymphocytes 13 % (9-44); Metamyelocytes 2 % (0-1); Monocytes 4 % (0-8); Myelocytes 5 % (0-0)
[2018-07-07 08:26] LABS: Ovalocytes 1+
[2018-07-07] MEDS: Insulin NovoLOG Aspart Correctional Sugar Inj SQ SCH ×4 (08:32→20:11)
[2018-07-07] MEDS: Sod Chloride 0.9% Inj 1,000 ML IV.CONT SCH (08:33)
[2018-07-07] MEDS: Senna/Docusate Sodium 8.6/50 MG Tablet PO SCH ×2 (08:36→20:12)
[2018-07-07] MEDS: amLODIPine 5 MG Tablet PO SCH (08:37)
[2018-07-07] MEDS: Insulin Detemir Inj 1,000 UNIT/10 ML Vial SQ SCH ×2 (08:37→20:11)
[2018-07-07] MEDS: Lisinopril 20 MG Tablet PO SCH (08:37)
--- NOTE | 2018-07-07 12:45 | P.PNID ---
Subjective Remarks: Patient notes that he feels okay. Mandible/Neck mass is larger. Denies difficulty swallowing, no trouble handling oral secretions. No neck stiffness. Currently n.p.o. Drainage of the neck lesion is planned for today. Afebrile. CT scan of the neck on 07/05/2018 shows complex loculated fluid collection. 73-year-old white male who developed pain and fever and chills and altered mental status and presented to the emergency department for evaluation. The patient was noted to have swelling of the left mandible and was felt to have a peritonsillar and mandibular abscess. CT scan of the face was performed on 06/29/2018 because of swelling of the jaw and there was an elongated rim-enhancing collection involving the left nasopharyngeal and oropharyngeal region characteristic of a peritonsillar abscess extending over several centimeters and an abscess noted at the left submandibular gland with adjacent reactive adenopathy. Past Medical History: PAST MEDICAL HISTORY: Diabetes mellitus, depression, gastric ulcer, hypertension, right knee arthroscopy. Allergies/Adverse Reactions: Allergies No Known Allergies Allergy (Unverified 06/29/18 11:11) Objective Vital Signs 07/06/18 16:00 07/06/18 20:00 07/07/18 00:00 Temperature 98.6 F 98.2 F 98.7 F Pulse Rate 57 L 68 64 Respiratory Rate 16 20 19 Blood Pressure 135/79 161/75 H 143/73 H Pulse Oximetry 96 93 L 94 L 07/07/18 04:00 07/07/18 08:00 07/07/18 12:00 Temperature 98.7 F 97.2 F L 98.3 F Pulse Rate 60 53 L 58 L Respiratory Rate 19 20 20 Blood Pressure 148/70 H 106/65 148/71 H Pulse Oximetry 91 L 97 94 L Intake & Output 07/06/18 07/07/18 07/07/18 18:59 06:59 18:59 Intake Total 1650 / 1650 340 / 340 Output Total 200 / 200 Balance 1650 / 1650 140 / 140 Weight 72.2 kg Intake: IV 1050 / 1050 100 / 100 NS Inj 1,000 ML @ 75 mls/hr IV. 850 / 850 CONT .[id number] [facility] Rx#:[id number] Cleocin 900 mg/NS Premix 900 mg 50 / 50 100 / 100 In 50 ml @ 100 mls/hr IV.SIG Q8H [facility] Rx#:[id number] Levaquin 750 mg Premix Inj 150 150 / 150 ML @ 100 mls/hr IV.SIG Q24H [facility] Rx#:[id number] Oral 600 / 600 240 / 240 Output: Urine 200 / 200 Other: # Voids 3 Date of Last Bowel Movement 07/06/18 06/29/18 11:28 Blood - Peripheral Aerobic Blood Culture - Final No growth in 5 days 06/29/18 11:28 Blood - Peripheral Anaerobic Blood Culture - Final No growth in 5 days 06/29/18 11:28 Blood - Peripheral Aerobic Blood Culture - Final No growth in 5 days 06/29/18 11:28 Blood - Peripheral Anaerobic Blood Culture - Final No growth in 5 days 07/02/18 13:00 Fluid - Other Gram Stain - Final 07/02/18 13:00 Fluid - Other Body Fluid Culture - Final 07/02/18 13:00 Fluid - Other Fungal Smear - Final No fungal elements seen 07/02/18 13:00 Fluid - Other Fungal Culture - Pending Lab - Hematology Results 07/06/18 07/07/18 06:43 03:35 WBC 17.1 H 18.3 H RBC 3.08 L 2.99 L Hgb 9.4 L 9.2 L Hct 29.2 L 28.5 L MCV 94.7 95.3 MCH 30.6 30.7 MCHC 32.3 32.2 RDW 20.1 H 19.6 H Plt Count 835 H 749 H MPV 9.4 9.4 Prelim Diff (Auto) Slide review pending Slide review pending Neut % (Auto) 73.7 H 72.7 H Lymph % (Auto) 18.9 20.6 [place] % (Auto) 5.3 4.6 Eos % (Auto) 1.7 1.8 Baso % (Auto) 0.4 0.3 Neut # (Auto) 12.6 H 13.3 H Lymph # (Auto) 3.2 3.8 [place] # (Auto) 0.9 0.8 Eos # (Auto) 0.3 0.3 Baso # (Auto) 0.1 0.1 WBC Differential Manual diff final Manual diff final Seg Neuts % (Manual) 63 60 Band Neuts % (Manual) 9 H 13 H Lymphocytes % (Manual) 21 13 Monocytes % (Manual) 4 4 Eosinophils % (Manual) 1 2 Basophils % (Manual) 1 Metamyelocytes % (Man) 2 H 2 H Myelocytes % (Man) 5 H Abs Neuts (Manual) 12.7 H 14.6 H Nucleated RBCs/100 WBC 2 H Differential Comment . . Platelet Estimate High H High H Platelet Morphology Enlarged H Enlarged H Ovalocytes 1+ H 1+ H Keratocytes Occ H Lab - Chemistry Results 07/05/18 07/05/18 07/06/18 17:48 20:50 06:43 Sodium 143 Potassium 3.7 Chloride 106 Carbon Dioxide 26.2 Anion Gap 11 BUN 12 Creatinine 0.76 Estimated GFR Greater than 89 POC Glucose 149 H 242 H Random Glucose 161 H Calcium 9.2 Phosphorus 3.3 Magnesium 1.8 Albumin 3.0 L 07/06/18 07/06/18 07/06/18 07:54 13:21 17:34 Sodium Potassium Chloride Carbon Dioxide Anion Gap BUN Creatinine Estimated GFR POC Glucose 183 H 228 H 201 H Random Glucose Calcium Phosphorus Magnesium Albumin 07/06/18 07/07/18 07/07/18 19:36 03:35 07:36 Sodium 142 Potassium 3.9 Chloride 105 Carbon Dioxide 31.2 Anion Gap 6 BUN 13 Creatinine 0.77 Estimated GFR Greater than 89 POC Glucose 204 H 131 H Random Glucose 88 Calcium 9.0 Phosphorus 4.0 Magnesium 1.8 Albumin 2.8 L Imaging: ITS Impressions Face CT 06/29/18 11:18 CONCLUSION: 1. There is an elongated rim-enhancing collection involving the left nasopharyngeal and oropharyngeal region characteristic of a peritonsillar abscess extending over several centimeters. 2. Is also an abscess is suspected in the region of the left submandibular gland with adjacent reactive adenopathy. Neck Ultrasound 07/02/18 00:00 CONCLUSION: 1. Small irregular fluid collection in the left submandibular region nonspecific, however possibility of abscess should be entertained. Soft Tissue Neck CT 07/05/18 00:00 CONCLUSION: 1. Complex fluid collection within the left submandibular region measuring 4.1 x 3.7 cm which is indeterminate. Abscess remains in the differential. Necrotic mass is also in the differential but is less likely. Clinical correlation is recommended. There is asymmetric swelling of the left tonsillar pillar and swelling of the left aryepiglottic folds also. Physical Exam: PHYSICAL EXAMINATION: GENERAL: Currently somnolent but in no distress. HEENT: The head is atraumatic. The swelling at the left lower jaw is fluctuant. No erythema. Extraocular movements grossly intact. Pupils reactive to light. No icterus. Oropharynx moist mucosa without lesions. NECK: Supple without adenopathy. LUNGS: Clear breath sounds. HEART: Regular S1, S2, without murmurs, rubs or gallops. ABDOMEN: Bowel sounds present. Soft, nontender. EXTREMITIES: No clubbing. No cyanosis or edema. SKIN: No rash. NEUROLOGIC: Nonfocal. PSYCHIATRIC: Calm and cooperative. Assessment and Plan - Plan IMPRESSION: 1. Peritonsillar and submandibular abscess/possible necrotic mass of the left. No improvement. 2. Leukocytosis. WBC is still elevated. 3. Diabetes mellitus. RECOMMENDATIONS: 1. Continue IV clindamycin. 2. Continue Levaquin. 3. Follow culture of fluid after aspiration is performed 4. Follow WBC. Discussed with daughter at bedside.
--- NOTE | 2018-07-07 12:54 | P.PNIM ---
Subjective Interval history: Normal. Denies any chest pain shortness of breath. Reports pain is controlled. Physical Exam Vital signs: Vital Signs 07/06/18 16:00 07/06/18 20:00 07/07/18 00:00 Temperature 98.6 F 98.2 F 98.7 F Pulse Rate 57 L 68 64 Respiratory Rate 16 20 19 Blood Pressure 135/79 161/75 H 143/73 H Pulse Oximetry 96 93 L 94 L 07/07/18 04:00 07/07/18 08:00 07/07/18 12:00 Temperature 98.7 F 97.2 F L 98.3 F Pulse Rate 60 53 L 58 L Respiratory Rate 19 20 20 Blood Pressure 148/70 H 106/65 148/71 H Pulse Oximetry 91 L 97 94 L Intake & Output 07/06/18 07/07/18 07/07/18 18:59 06:59 18:59 Intake Total 1650 / 1650 340 / 340 Output Total 200 / 200 Balance 1650 / 1650 140 / 140 Weight 72.2 kg Intake: IV 1050 / 1050 100 / 100 NS Inj 1,000 ML @ 75 mls/hr IV. 850 / 850 CONT .[id number] [facility] Rx#:[id number] Cleocin 900 mg/NS Premix 900 mg 50 / 50 100 / 100 In 50 ml @ 100 mls/hr IV.SIG Q8H [facility] Rx#:[id number] Levaquin 750 mg Premix Inj 150 150 / 150 ML @ 100 mls/hr IV.SIG Q24H [facility] Rx#:[id number] Oral 600 / 600 240 / 240 Output: Urine 200 / 200 Other: # Voids 3 Date of Last Bowel Movement 07/06/18 Narrative: GENERAL: Sitting up in chair. Appears comfortable. SKIN: Warm and dry. HEAD: Normocephalic. EYES: No scleral icterus. No injection or drainage. NECK: trachea midline. No JVD. Left-sided induration, swelling continues without significant change. No erythema. CARDIOVASCULAR: Regular rate and rhythm without murmurs, gallops, or rubs. RESPIRATORY: Breath sounds equal bilaterally. No accessory muscle use. GASTROINTESTINAL: Abdomen soft, non-tender, nondistended. MUSCULOSKELETAL: No cyanosis, or edema. BACK: Nontender without obvious deformity. No CVA tenderness. Results - Labs CBC & Chem 7: 07/07/18 03:35 09/06/18 03:35 Laboratory Results - last 24 hr 07/06/18 07/06/18 07/06/18 13:21 17:34 19:36 WBC RBC Hgb Hct MCV MCH MCHC RDW Plt Count MPV Prelim Diff (Auto) Neut % (Auto) Lymph % (Auto) [place] % (Auto) Eos % (Auto) Baso % (Auto) Neut # (Auto) Lymph # (Auto) [place] # (Auto) Eos # (Auto) Baso # (Auto) WBC Differential Seg Neuts % (Manual) Band Neuts % (Manual) Lymphocytes % (Manual) Monocytes % (Manual) Eosinophils % (Manual) Basophils % (Manual) Metamyelocytes % (Man) Myelocytes % (Man) Abs Neuts (Manual) Differential Comment Platelet Estimate Platelet Morphology Ovalocytes Keratocytes Sodium Potassium Chloride Carbon Dioxide Anion Gap BUN Creatinine Estimated GFR POC Glucose 228 H 201 H 204 H Random Glucose Calcium Phosphorus Magnesium Albumin 07/07/18 07/07/18 07/07/18 03:35 03:35 07:36 WBC 18.3 H RBC 2.99 L Hgb 9.2 L Hct 28.5 L MCV 95.3 MCH 30.7 MCHC 32.2 RDW 19.6 H Plt Count 749 H MPV 9.4 Prelim Diff (Auto) Slide review pending Neut % (Auto) 72.7 H Lymph % (Auto) 20.6 [place] % (Auto) 4.6 Eos % (Auto) 1.8 Baso % (Auto) 0.3 Neut # (Auto) 13.3 H Lymph # (Auto) 3.8 [place] # (Auto) 0.8 Eos # (Auto) 0.3 Baso # (Auto) 0.1 WBC Differential Manual diff final Seg Neuts % (Manual) 60 Band Neuts % (Manual) 13 H Lymphocytes % (Manual) 13 Monocytes % (Manual) 4 Eosinophils % (Manual) 2 Basophils % (Manual) 1 Metamyelocytes % (Man) 2 H Myelocytes % (Man) 5 H Abs Neuts (Manual) 14.6 H Differential Comment . Platelet Estimate High H Platelet Morphology Enlarged H Ovalocytes 1+ H Keratocytes Occ H Sodium 142 Potassium 3.9 Chloride 105 Carbon Dioxide 31.2 Anion Gap 6 BUN 13 Creatinine 0.77 Estimated GFR Greater than 89 POC Glucose 131 H Random Glucose 88 Calcium 9.0 Phosphorus 4.0 Magnesium 1.8 Albumin 2.8 L Assessment and Plan - Assessment (1) Peritonsillar abscess Code(s): J36 - Peritonsillar abscess Status: Acute (2) Mandibular abscess Code(s): M27.2 - Inflammatory conditions of jaws Status: Acute (3) HTN (hypertension) Code(s): I10 - Essential (primary) hypertension Status: Chronic (4) Type 2 diabetes mellitus Code(s): E11.9 - Type 2 diabetes mellitus without complications Status: Chronic (5) Depression Code(s): F32.9 - Major depressive disorder, single episode, unspecified Status : Chronic - Plan 73-year-old with past history of type 2 diabetes, gastric ulcer, hypertension, and depression, admitted for mandibular abscess and peritonsillar abscess. //Peritonsillar and mandibular abscess -WMuch improved today per patient report -ENT on board - attempted needle aspiration on 07/02 with very little fluid return -Gram stain/culture and fungal smear/culture pending -Blood cultures pending negative x3 days -Continue Decadron 10mg q8h IV -Continue mechanical soft diet with Glucerna shakes BID = Patient doing better. Drinking triglycerides with every meal. Continue antibiotics as per infectious disease. Gram-positive cocci on needle aspiration from 07/02. Follow-up sensitivities. Discontinue steroids as per ENT. Continue to monitor closely. = 07/05. Worsening swelling left face. Levaquin has been added by infectious disease. CT as well as ultrasound pending. Appreciate ENT/ID assistance. = 07/06. CT shows loculated fluid collection left neck. Discussed with infectious disease, excellent facial surgery who says this is not a tooth problem, ENT who saw patient previously, as well as have contacted in place consult for ENT audio production engineer today. = 07/07. Discussed with ENT. Patient planned for aspiration this afternoon around 3 PM. Appreciate ENT assistance. Will consult wound care nurse as per ENT recommendations. Appreciate assistance. Follow-up cultures after aspiration. ID following. //Type 2 diabetes -SSI w/ accuchecks -After steroids was started, blood glucose increased to 286 -Needed 12 units SSI in the last 24 hrs which represents a big increase from previous -Consider starting Levemir tonight as long as patient is eating well = Glucose in the 300s. Steroids will be discontinued. Adjust insulin sliding scale. Discussed with nurse. = Glucose improved with sugars in the 160s this morning. Continue current regimen. //HTN -BP has improved to a high of low 150's systolic -Continue Amlodipine 10mg PO daily and Lisinopril 40mg PO daily -Clonidine per protocol = Blood pressure acceptable. Continue to monitor. //Gastric Ulcer -Continue Protonix //Depression -Continue home paroxetine //Unintentional weight loss -Patient and spouse report unintenional weight loss of at least 18 lbs over a 6- month period -Abnormal neutrophils, plasma cells, and metamyelocytes identified on CBC differential as well as elevated platelets of 850 -Need to rule out CML = 07/06. Peripheral smear with some abnormalities, however likely reactive. secondary to Infectious process until proven otherwise //Continue Lovenox for DVT prophylaxis Discussed Condition With: Patient, spouse, and patient's nurse Discharge Planning: Pending ENT, ID clearance. (3) HTN (hypertension) Qualifiers: Hypertension type: essential hypertension Qualified Code(s): I10 - Essential (primary) hypertension (4) Type 2 diabetes mellitus Qualifiers: Diabetes mellitus mcfp insulin use: without mcfp use Diabetes mellitus complication status: with unspecified complications Qualified Code(s) : E11.8 - Type 2 diabetes mellitus with unspecified complications (5) Depression Qualifiers: Depression Type: major depressive disorder Major depression recurrence: recurrent Active/Remission status: in partial remission Qualified Code(s): F33.41 - Major depressive disorder, recurrent, in partial remission
[2018-07-07] MEDS ORDERED: Succinylcholine Inj 100 MG/5 ML Syringe IV.PUSH ONE (15:43)
[2018-07-07] MEDS ORDERED: Lidocaine PF 1% Inj 5 ML Syringe INFILTRATN ONE (15:43)
[2018-07-07] MEDS ORDERED: Dexmedetomidine Inj 200 MCG/2 ML Vial ONE (15:54)
--- NOTE | 2018-07-07 16:27 | MP ---
cc: Lico Wang MD DATE OF OPERATION: 07/07/2018 SURGEON: Dr. Lico Wang MD PREOPERATIVE DIAGNOSES: Left submandibular neck abscess. POSTOPERATIVE DIAGNOSIS: Left submandibular neck abscess. PROCEDURE PERFORMED: Incision and drainage of left submandibular neck abscess. INDICATIONS FOR PROCEDURE: Documented in the inpatient consultation of 07/07/2018. DESCRIPTION OF PROCEDURE: The patient was taken to OR #7 and placed in the supine position. Following induction of general anesthesia and intubation, a shoulder roll was put in place and the patient was positioned for surgery of the left submandibular triangle. The area of fluctuance was marked with a 5 cm curvilinear line around the level of the inferior border of the submandibular gland. This line was injected with 3 mL of 1% Xylocaine with epinephrine 1:100,000. He was then prepped and draped for surgery. The line was incised with a 15-blade scalpel down through the superficial layer of deep cervical fascia and the purulent material was immediately encountered. The incision was extended the full length of the skin tete and the loculations within the abscess cavity were broken up using a curved [place] clamp. A culture was obtained from the wound cavity and it was then irrigated with 200 mL of saline and then packed with approximately 6 feet of quarter-inch iodoform gauze. A [place] dressing was applied and the procedure was terminated. The patient was reversed from anesthesia and taken to recovery in good condition. No complications. Blood loss 30 mL. MD FANTA John/hubert , 04:15 PM , 04:21 PM
[2018-07-07] MEDS ORDERED: fentaNYL Citrate Inj 100 MCG/2 ML Ampul ONE (16:51)
[2018-07-07] MEDS ORDERED: Acetaminophen-HYDROcodone 325/7.5 Liq 15 ML UDC PO PRN (20:00)
[2018-07-08] MEDS: Clindamycin 900 mg/NS Premix 900 MG/50 ML PIGGYBACK IV.SIG SCH ×2 (03:51→11:56)
[2018-07-08 06:18] LABS: Baso % (Auto) 0.1 % (0.0-2.0); Eos # (Auto) 0.1 th/mm3 (0.0-0.4); Eos % (Auto) 0.3 % (0.0-4.0); Hematocrit 28.8 % (39.0-51.0); Hemoglobin 9.2 gm/dL (13.0-17.0); Lymph # (Auto) 2.3 th/mm3 (1.0-4.8); Lymph % (Auto) 8.5 % (9.0-44.0); Mean Corpuscular HGB Conc 31.9 % (32.0-36.0); Mean Corpuscular Hemoglobin 30.2 pg (27.0-34.0); Mean Corpuscular Volume 94.7 fL (80.0-100.0); Mean Platelet Volume 9.7 fL (7.0-11.0); Mono # (Auto) 1.1 th/mm3 (0.0-0.9); Neut # (Auto) 23.1 th/mm3 (1.8-7.7); Neut % (Auto) 87.1 % (16.0-70.0); Platelet Count 774 th/mm3 (150-450); Red Blood Count 3.04 mil/mm3 (4.50-5.90); White Blood Count 26.5 th/mm3 (4.0-11.0)
[2018-07-08 07:56] LABS: Lymphocytes 3 % (9-44); Metamyelocytes 2 % (0-1); Monocytes 6 % (0-8); Promyelocyte 1 % (0-0); Tallied Nucleated RBC 1 (0-0)
[2018-07-08 07:57] LABS: Ovalocytes 2+
[2018-07-08] MEDS: amLODIPine 5 MG Tablet PO SCH (08:50)
[2018-07-08] MEDS: Senna/Docusate Sodium 8.6/50 MG Tablet PO SCH ×2 (08:50→21:45)
[2018-07-08] MEDS: Insulin NovoLOG Aspart Correctional Sugar Inj SQ SCH ×4 (08:50→21:47)
[2018-07-08] MEDS: Lisinopril 20 MG Tablet PO SCH (08:50)
[2018-07-08] MEDS: Insulin Detemir Inj 1,000 UNIT/10 ML Vial SQ SCH ×2 (08:51→21:47)
--- NOTE | 2018-07-08 10:08 | P.PNIM ---
Subjective Interval history: Patient says he is feeling all right. Reports pain is under control. Denies any chest pain shortness of breath. Denies nausea vomiting. Says he is swallowing all right. Physical Exam Vital signs: Vital Signs 07/07/18 12:00 07/07/18 16:42 07/07/18 16:45 Temperature 98.3 F 97.5 F L Pulse Rate 58 L 68 68 Respiratory Rate 20 16 16 Blood Pressure 148/71 H 151/74 H 157/72 H Pulse Oximetry 94 L 93 L 96 07/07/18 17:00 07/07/18 17:15 07/07/18 20:00 Temperature 97.5 F L 98.0 F Pulse Rate 66 62 60 Respiratory Rate 16 19 Blood Pressure 163/75 H 142/70 H 138/70 Pulse Oximetry 99 99 95 07/08/18 00:00 07/08/18 04:00 07/08/18 08:00 Temperature 98.0 F 98.1 F 98.3 F Pulse Rate 67 60 60 Respiratory Rate 19 20 19 Blood Pressure 131/63 141/69 H 142/66 H Pulse Oximetry 92 L 94 L 93 L Intake & Output 07/07/18 07/08/18 07/08/18 18:59 06:59 18:59 Intake Total 800 / 800 1440 / 1440 1000 / 1000 Output Total 10 / 10 300 / 300 Balance 790 / 790 1140 / 1140 1000 / 1000 Weight 72.7 kg Intake: IV 200 / 200 1200 / 1200 1000 / 1000 NS Inj 1,000 ML @ 75 mls/hr IV. 1000 / 1000 CONT .[id number] [facility] Rx#:[id number] Cleocin 900 mg/NS Premix 900 mg 50 / 50 100 / 100 In 50 ml @ 100 mls/hr IV.SIG Q8H [facility] Rx#:[id number] LR 1000 mL Inj 1,000 ML @ 80 1000 / 1000 mls/hr IV.SIG .[id number] [facility] Rx#: [id number] Levaquin 750 mg Premix Inj 150 150 / 150 ML @ 100 mls/hr IV.SIG Q24H [facility] Rx#:[id number] Rocephin Inj 1,000 MG In NS Inj 100 / 100 100 ML @ 200 mls/hr IV.SIG Q12H [facility] Rx#:[id number] Oral 240 / 240 Anesthesia Amount 600 / 600 Output: Urine 300 / 300 Estimated Blood Loss Other: Date of Last Bowel Movement 07/06/18 Narrative: GENERAL: Sitting up in bed. Appears comfortable. SKIN: Warm and dry. HEAD: Normocephalic. EYES: No scleral icterus. No injection or drainage. NECK: trachea midline. No JVD. Left-sided cervical incision is dressed. Draining sanguinous fluid. CARDIOVASCULAR: Regular rate and rhythm without murmurs, gallops, or rubs. RESPIRATORY: Breath sounds equal bilaterally. No accessory muscle use. GASTROINTESTINAL: Abdomen soft, non-tender, nondistended. MUSCULOSKELETAL: No cyanosis, or edema. BACK: Nontender without obvious deformity. No CVA tenderness. Results - Labs CBC & Chem 7: 07/08/18 05:03 07/07/18 03:35 Laboratory Results - last 24 hr 07/07/18 07/08/18 07/08/18 12:10 05:03 07:26 WBC 26.5 H RBC 3.04 L Hgb 9.2 L Hct 28.8 L MCV 94.7 MCH 30.2 MCHC 31.9 L RDW 20.0 H Plt Count 774 H MPV 9.7 Prelim Diff (Auto) Slide review pending Neut % (Auto) 87.1 H Lymph % (Auto) 8.5 L [place] % (Auto) 4.0 Eos % (Auto) 0.3 Baso % (Auto) 0.1 Neut # (Auto) 23.1 H Lymph # (Auto) 2.3 [place] # (Auto) 1.1 H Eos # (Auto) 0.1 Baso # (Auto) 0.0 WBC Differential Manual diff final Seg Neuts % (Manual) 85 H Band Neuts % (Manual) 3 Lymphocytes % (Manual) 3 L Monocytes % (Manual) 6 Metamyelocytes % (Man) 2 H Promyelocytes % (Man) 1 H Abs Neuts (Manual) 24.1 H Nucleated RBCs/100 WBC 1 H Differential Comment . Platelet Estimate High H Platelet Morphology Enlarged H Ovalocytes 2+ H Keratocytes Occ H POC Glucose 134 H 278 H Microbiology 07/07/18 16:08 Abscess - Neck Gram Stain - Final 07/07/18 16:08 Abscess - Neck Fungal Smear - Final No fungal elements seen Assessment and Plan - Assessment (1) Peritonsillar abscess Code(s): J36 - Peritonsillar abscess Status: Acute (2) Mandibular abscess Code(s): M27.2 - Inflammatory conditions of jaws Status: Acute (3) HTN (hypertension) Code(s): I10 - Essential (primary) hypertension Status: Chronic (4) Type 2 diabetes mellitus Code(s): E11.9 - Type 2 diabetes mellitus without complications Status: Chronic (5) Depression Code(s): F32.9 - Major depressive disorder, single episode, unspecified Status : Chronic - Plan 73-year-old with past history of type 2 diabetes, gastric ulcer, hypertension, and depression, admitted for mandibular abscess and peritonsillar abscess. //Peritonsillar and mandibular abscess -WMuch improved today per patient report -ENT on board - attempted needle aspiration on 07/02 with very little fluid return -Gram stain/culture and fungal smear/culture pending -Blood cultures pending negative x3 days -Continue Decadron 10mg q8h IV -Continue mechanical soft diet with Glucerna shakes BID = Patient doing better. Drinking triglycerides with every meal. Continue antibiotics as per infectious disease. Gram-positive cocci on needle aspiration from 07/02. Follow-up sensitivities. Discontinue steroids as per ENT. Continue to monitor closely. = 07/05. Worsening swelling left face. Levaquin has been added by infectious disease. CT as well as ultrasound pending. Appreciate ENT/ID assistance. = 07/06. CT shows loculated fluid collection left neck. Discussed with infectious disease, excellent facial surgery who says this is not a tooth problem, ENT who saw patient previously, as well as have contacted in place consult for ENT ergonomic specialist today. = 07/07. Discussed with ENT. Patient planned for aspiration this afternoon around 3 PM. Appreciate ENT assistance. Will consult wound care nurse as per ENT recommendations. Appreciate assistance. Follow-up cultures after aspiration. ID following. = 07/08. Follow-up cultures from incision and drainage yesterday. Appreciate ENT assistance. White blood cell count is up in the 20s likely reactive secondary to incision and drainage. No fevers. Continue to monitor. ID following. Follow-up cultures. //Type 2 diabetes -SSI w/ accuchecks -After steroids was started, blood glucose increased to 286 -Needed 12 units SSI in the last 24 hrs which represents a big increase from previous -Consider starting Levemir tonight as long as patient is eating well = Glucose in the 300s. Steroids will be discontinued. Adjust insulin sliding scale. Discussed with nurse. = Glucose improved with sugars in the 160s this morning. Continue current regimen. //HTN -BP has improved to a high of low 150's systolic -Continue Amlodipine 10mg PO daily and Lisinopril 40mg PO daily -Clonidine per protocol = Blood pressure acceptable. Continue to monitor. //Gastric Ulcer -Continue Protonix //Depression -Continue home paroxetine //Unintentional weight loss -Patient and spouse report unintenional weight loss of at least 18 lbs over a 6- month period -Abnormal neutrophils, plasma cells, and metamyelocytes identified on CBC differential as well as elevated platelets of 850 -Need to rule out CML = 07/06. Peripheral smear with some abnormalities, however likely reactive. secondary to Infectious process until proven otherwise //Continue Lovenox for DVT prophylaxis Discussed Condition With: Patient, spouse, and patient's nurse Discharge Planning: Pending ENT, ID clearance. (3) HTN (hypertension) Qualifiers: Hypertension type: essential hypertension Qualified Code(s): I10 - Essential (primary) hypertension (4) Type 2 diabetes mellitus Qualifiers: Diabetes mellitus alf insulin use: without watermelon inspector use Diabetes mellitus complication status: with unspecified complications Qualified Code(s) : E11.8 - Type 2 diabetes mellitus with unspecified complications (5) Depression Qualifiers: Depression Type: major depressive disorder Major depression recurrence: recurrent Active/Remission status: in partial remission Qualified Code(s): F33.41 - Major depressive disorder, recurrent, in partial remission
[2018-07-08] MEDS ORDERED: Vancomycin Consult Pharmacy 1 EACH OTHER SCH (14:30)
--- NOTE | 2018-07-08 14:30 | P.PNID ---
Subjective Remarks: Patient is status post incision and drainage of the left submandibular abscess Notes pain at the site of the incision. Denies difficulty swallowing, no trouble handling oral secretions. No neck stiffness. White blood cell count increased. Afebrile. Wound culture pending. 73-year-old white male who developed pain and fever and chills and altered mental status and presented to the emergency department for evaluation. The patient was noted to have swelling of the left mandible and was felt to have a peritonsillar and mandibular abscess. CT scan of the face was performed on 06/29/2018 because of swelling of the jaw and there was an elongated rim-enhancing collection involving the left nasopharyngeal and oropharyngeal region characteristic of a peritonsillar abscess extending over several centimeters and an abscess noted at the left submandibular gland with adjacent reactive adenopathy. Past Medical History: PAST MEDICAL HISTORY: Diabetes mellitus, depression, gastric ulcer, hypertension, right knee arthroscopy. Allergies/Adverse Reactions: Allergies No Known Allergies Allergy (Unverified 06/29/18 11:11) Objective Vital Signs 07/07/18 16:42 07/07/18 16:45 07/07/18 17:00 Temperature 97.5 F L Pulse Rate 68 68 66 Respiratory Rate 16 16 Blood Pressure 151/74 H 157/72 H 163/75 H Pulse Oximetry 93 L 96 99 07/07/18 17:15 07/07/18 20:00 07/08/18 00:00 Temperature 97.5 F L 98.0 F 98.0 F Pulse Rate 62 60 67 Respiratory Rate 16 19 19 Blood Pressure 142/70 H 138/70 131/63 Pulse Oximetry 99 95 92 L 07/08/18 04:00 07/08/18 08:00 07/08/18 12:00 Temperature 98.1 F 98.3 F 98.2 F Pulse Rate 60 60 62 Respiratory Rate 20 19 20 Blood Pressure 141/69 H 142/66 H 123/71 Pulse Oximetry 94 L 93 L 98 Intake & Output 07/07/18 07/08/18 07/08/18 18:59 06:59 18:59 Intake Total 800 / 800 1440 / 1440 1150 / 1150 Output Total 10 / 10 300 / 300 Balance 790 / 790 1140 / 1140 1150 / 1150 Weight 72.7 kg Intake: IV 200 / 200 1200 / 1200 1150 / 1150 NS Inj 1,000 ML @ 75 mls/hr IV. 1000 / 1000 CONT .[id number] [facility] Rx#:[id number] Cleocin 900 mg/NS Premix 900 mg 50 / 50 100 / 100 50 / 50 In 50 ml @ 100 mls/hr IV.SIG Q8H [facility] Rx#:[id number] LR 1000 mL Inj 1,000 ML @ 80 1000 / 1000 mls/hr IV.SIG .[id number] [facility] Rx#: [id number] Levaquin 750 mg Premix Inj 150 150 / 150 ML @ 100 mls/hr IV.SIG Q24H [facility] Rx#:[id number] Rocephin Inj 1,000 MG In NS Inj 100 / 100 100 / 100 100 ML @ 200 mls/hr IV.SIG Q12H [facility] Rx#:[id number] Oral 240 / 240 Anesthesia Amount 600 / 600 Output: Urine 300 / 300 Estimated Blood Loss Other: Date of Last Bowel Movement 07/06/18 07/07/18 16:08 Abscess - Neck Gram Stain - Final 07/07/18 16:08 Abscess - Neck Wound Culture - Preliminary No growth in 24 hours 07/07/18 16:08 Abscess - Neck Fungal Smear - Final No fungal elements seen 07/07/18 16:08 Abscess - Neck Fungal Culture - Pending 07/07/18 16:08 Abscess - Neck Acid Fast Bacilli Smear - Pending 07/07/18 16:08 Abscess - Neck Mycobacterial Culture - Pending Lab - Hematology Results 07/07/18 07/08/18 03:35 05:03 WBC 18.3 H 26.5 H RBC 2.99 L 3.04 L Hgb 9.2 L 9.2 L Hct 28.5 L 28.8 L MCV 95.3 94.7 MCH 30.7 30.2 MCHC 32.2 31.9 L RDW 19.6 H 20.0 H Plt Count 749 H 774 H MPV 9.4 9.7 Prelim Diff (Auto) Slide review pending Slide review pending Neut % (Auto) 72.7 H 87.1 H Lymph % (Auto) 20.6 8.5 L [place] % (Auto) 4.6 4.0 Eos % (Auto) 1.8 0.3 Baso % (Auto) 0.3 0.1 Neut # (Auto) 13.3 H 23.1 H Lymph # (Auto) 3.8 2.3 [place] # (Auto) 0.8 1.1 H Eos # (Auto) 0.3 0.1 Baso # (Auto) 0.1 0.0 WBC Differential Manual diff final Manual diff final Seg Neuts % (Manual) 60 85 H Band Neuts % (Manual) 13 H 3 Lymphocytes % (Manual) 13 3 L Monocytes % (Manual) 4 6 Eosinophils % (Manual) 2 Basophils % (Manual) 1 Metamyelocytes % (Man) 2 H 2 H Myelocytes % (Man) 5 H Promyelocytes % (Man) 1 H Abs Neuts (Manual) 14.6 H 24.1 H Nucleated RBCs/100 WBC 1 H Differential Comment . . Platelet Estimate High H High H Platelet Morphology Enlarged H Enlarged H Ovalocytes 1+ H 2+ H Keratocytes Occ H Occ H Lab - Chemistry Results 07/06/18 07/06/18 07/07/18 17:34 19:36 03:35 Sodium 142 Potassium 3.9 Chloride 105 Carbon Dioxide 31.2 Anion Gap 6 BUN 13 Creatinine 0.77 Estimated GFR Greater than 89 POC Glucose 201 H 204 H Random Glucose 88 Calcium 9.0 Phosphorus 4.0 Magnesium 1.8 Albumin 2.8 L 07/07/18 07/07/18 07/08/18 07:36 12:10 07:26 Sodium Potassium Chloride Carbon Dioxide Anion Gap BUN Creatinine Estimated GFR POC Glucose 131 H 134 H 278 H Random Glucose Calcium Phosphorus Magnesium Albumin 07/08/18 11:29 Sodium Potassium Chloride Carbon Dioxide Anion Gap BUN Creatinine Estimated GFR POC Glucose 275 H Random Glucose Calcium Phosphorus Magnesium Albumin Imaging: ITS Impressions Face CT 06/29/18 11:18 CONCLUSION: 1. There is an elongated rim-enhancing collection involving the left nasopharyngeal and oropharyngeal region characteristic of a peritonsillar abscess extending over several centimeters. 2. Is also an abscess is suspected in the region of the left submandibular gland with adjacent reactive adenopathy. Neck Ultrasound 07/02/18 00:00 CONCLUSION: 1. Small irregular fluid collection in the left submandibular region nonspecific, however possibility of abscess should be entertained. Soft Tissue Neck CT 07/05/18 00:00 CONCLUSION: 1. Complex fluid collection within the left submandibular region measuring 4.1 x 3.7 cm which is indeterminate. Abscess remains in the differential. Necrotic mass is also in the differential but is less likely. Clinical correlation is recommended. There is asymmetric swelling of the left tonsillar pillar and swelling of the left aryepiglottic folds also. Physical Exam: PHYSICAL EXAMINATION: GENERAL: Awake and alert. HEENT: The head is atraumatic. Dressing in place at the left neck. No erythema. Extraocular movements grossly intact. Pupils reactive to light. No icterus. Oropharynx moist mucosa without lesions. NECK: Supple without adenopathy. LUNGS: Clear breath sounds. HEART: Regular S1, S2, without murmurs, rubs or gallops. ABDOMEN: Bowel sounds present. Soft, nontender. EXTREMITIES: No clubbing. No cyanosis or edema. SKIN: No rash. NEUROLOGIC: Nonfocal. PSYCHIATRIC: Calm and cooperative. Assessment and Plan - Plan IMPRESSION: 1. Loculated peritonsillar and submandibular abscess. Status post incision and drainage 07/07/2018. 2. Leukocytosis. WBC is increased. 3. Diabetes mellitus. RECOMMENDATIONS: 1. Discontinue IV clindamycin. 2. Begin vancomycin for both potential MRSA. 3. Continue Levaquin. 4. Add Diflucan for Janie coverage. 5. Monitor culture. 6. Follow WBC. Antibiotic adjustments depending on culture results. Discussed with at bedside.
--- NOTE | 2018-07-08 15:48 | P.DIET ---
Nutritional Evaluation Type of nutrition evaluation: [place] [place] Nutrition consult regarding: Diet Evaluation Objective - Diagnosis Acute Peritonsillar and Submandibular Abscess, BILL - Objective % IBW: 94 (ZIL=466#) Body Weight Used for Calculations: Actual (68.1 kg) Energy Needs - Lower Range (kCal/kg): 25 Energy Needs - Upper Range (kCal/kg): 30 Lower Limit kCal/kg (kCals): 1,703 Upper Limit kCal/kg (kCals): 2,043 Lower Limit Protein Factor (Grams per Kg): 1.1 Upper Limit Protein Factor (Grams per Kg): 1.4 Lower Protein Needs (Protein): 75 Upper Protein Needs (Protein): 95 Fluid Factor (ml/kg): 30 Estimated Fluid Needs (ml): 2,043 Dietitian Reviewed in Medical Record: Current diet, Curent medications, Intake & Output, Labs, Medical history Diet Order: Clear Liquids Objective Comments: s/p drainage of neck region on 07/07 Feeding - Current PO Supplement Current Supplement: Glucerna Shake Current Frequency of Supplement: Three times a day Current kCals Provided by Supplement: 220 Current Protein Provided by Supplement: 10 Assessment Assessment: Pt w/ a neck abscess, swelling improving per MD. Pt is now on clear liquids following procedure, but was tolerating previous diet well. He was eating more than "normal" and drinking the Glucerna Shake supplements. Noted elevated BG today of 275, he is on clear liquids. Advance diet per surgeon. Continue current POC. Consult RD if needed.
[2018-07-08] MEDS ORDERED: Vancomycin Inj 1,750 MG in Sodium Chlor 0.9% Inj 500 ML IV.SIG ONE (16:00)
[2018-07-09] MEDS: Vancomycin Inj 1,000 MG in Sodium Chlor 0.9% Inj 250 ML IV.SIG SCH ×2 (03:52→15:31)
[2018-07-09] MEDS: Senna/Docusate Sodium 8.6/50 MG Tablet PO SCH ×2 (09:04→20:41)
[2018-07-09] MEDS: amLODIPine 5 MG Tablet PO SCH (09:06)
[2018-07-09] MEDS: Insulin Detemir Inj 1,000 UNIT/10 ML Vial SQ SCH ×2 (09:17→20:41)
[2018-07-09] MEDS: Insulin NovoLOG Aspart Correctional Sugar Inj SQ SCH ×4 (09:18→20:42)
[2018-07-09 09:19] LABS: Baso % (Auto) 0.3 % (0.0-2.0); Eos # (Auto) 0.1 th/mm3 (0.0-0.4); Eos % (Auto) 0.6 % (0.0-4.0); Hematocrit 26.2 % (39.0-51.0); Hemoglobin 8.6 gm/dL (13.0-17.0); Lymph % (Auto) 22.4 % (9.0-44.0); Mean Corpuscular HGB Conc 32.8 % (32.0-36.0); Mean Corpuscular Hemoglobin 31.1 pg (27.0-34.0); Mean Corpuscular Volume 94.8 fL (80.0-100.0); Mean Platelet Volume 9.5 fL (7.0-11.0); Mono # (Auto) 0.9 th/mm3 (0.0-0.9); Neut # (Auto) 12.9 th/mm3 (1.8-7.7); Neut % (Auto) 71.7 % (16.0-70.0); Platelet Count 740 th/mm3 (150-450); Red Blood Count 2.76 mil/mm3 (4.50-5.90); Red Cell Distribution Width 20.2 % (11.6-17.2)
--- NOTE | 2018-07-09 09:32 | P.PNIM ---
Subjective Interval history: Patient sleeping, wakes up for exam. Says he is comfortable. Denies any chest pain shortness of breath. Reports pain is controlled. Physical Exam Vital signs: Vital Signs 07/08/18 12:00 07/08/18 16:00 07/08/18 20:00 Temperature 98.2 F 98.3 F 97.6 F Pulse Rate 62 63 61 Respiratory Rate 20 20 17 Blood Pressure 123/71 125/75 113/57 L Pulse Oximetry 98 98 94 L 07/09/18 00:00 07/09/18 04:00 07/09/18 08:00 Temperature 97.1 F L 98.1 F 97.9 F Pulse Rate 54 L 51 L 53 L Respiratory Rate 18 19 16 Blood Pressure 151/84 H 142/74 H 160/73 H Pulse Oximetry 97 95 96 Intake & Output 07/08/18 07/09/18 07/09/18 18:59 06:59 18:59 Intake Total 2240 / 2240 2280 / 2280 Output Total 400 / 400 Balance 2240 / 2240 1880 / 1880 Weight 71.8 kg Intake: IV 1500 / 1500 1800 / 1800 Cleocin 900 mg/NS Premix 900 mg 50 / 50 In 50 ml @ 100 mls/hr IV.SIG Q8H [facility] Rx#:[id number] Diflucan 400 mg Premix Bag 200 200 / 200 ML @ 100 mls/hr IV.SIG Q24H [facility] Rx#:[id number] LR 1000 mL Inj 1,000 ML @ 80 1000 / 1000 1000 / 1000 mls/hr IV.SIG .[id number] [facility] Rx#: [id number] Levaquin 750 mg Premix Inj 150 150 / 150 ML @ 100 mls/hr IV.SIG Q24H [facility] Rx#:[id number] Vancomycin Inj 1,000 MG In NS 250 / 250 Inj 250 ML @ 250 mls/hr IV.SIG Q12H [facility] Rx#:[id number] Vancomycin Inj 1,750 MG In NS 550 / 550 Inj 500 ML @ 250 mls/hr IV.SIG ONCE ONE Rx#:[id number] Rocephin Inj 1,000 MG In NS Inj 100 / 100 100 ML @ 200 mls/hr IV.SIG Q12H [facility] Rx#:[id number] Oral 740 / 740 480 / 480 Output: Urine 400 / 400 Other: # Voids 4 Narrative: GENERAL: Sitting up in bed. Appears comfortable. No change on exam. SKIN: Warm and dry. HEAD: Normocephalic. EYES: No scleral icterus. No injection or drainage. NECK: trachea midline. No JVD. Left-sided cervical incision is dressed. Draining sanguinous fluid as before. CARDIOVASCULAR: Regular rate and rhythm without murmurs, gallops, or rubs. RESPIRATORY: Breath sounds equal bilaterally. No accessory muscle use. GASTROINTESTINAL: Abdomen soft, non-tender, nondistended. MUSCULOSKELETAL: No cyanosis, or edema. BACK: Nontender without obvious deformity. No CVA tenderness. Results - Labs CBC & Chem 7: 07/09/18 06:30 07/07/18 03:35 Laboratory Results - last 24 hr 07/08/18 07/08/18 07/09/18 11:29 16:59 06:30 WBC 18.0 H RBC 2.76 L Hgb 8.6 L Hct 26.2 L MCV 94.8 MCH 31.1 MCHC 32.8 RDW 20.2 H Plt Count 740 H MPV 9.5 Prelim Diff (Auto) Slide review pending Neut % (Auto) 71.7 H Lymph % (Auto) 22.4 [place] % (Auto) 5.0 Eos % (Auto) 0.6 Baso % (Auto) 0.3 Neut # (Auto) 12.9 H Lymph # (Auto) 4.0 [place] # (Auto) 0.9 Eos # (Auto) 0.1 Baso # (Auto) 0.0 Differential Comment . POC Glucose 275 H 244 H 07/09/18 07:57 WBC RBC Hgb Hct MCV MCH MCHC RDW Plt Count MPV Prelim Diff (Auto) Neut % (Auto) Lymph % (Auto) [place] % (Auto) Eos % (Auto) Baso % (Auto) Neut # (Auto) Lymph # (Auto) [place] # (Auto) Eos # (Auto) Baso # (Auto) Differential Comment POC Glucose 76 Microbiology 07/07/18 16:08 Abscess - Neck Gram Stain - Final 07/07/18 16:08 Abscess - Neck Wound Culture - Preliminary 07/07/18 16:08 Abscess - Neck Acid Fast Bacilli Smear - Final No acid fast bacilli seen 07/07/18 16:08 Abscess - Neck Fungal Smear - Final No fungal elements seen Assessment and Plan - Assessment (1) Peritonsillar abscess Code(s): J36 - Peritonsillar abscess Status: Acute (2) Mandibular abscess Code(s): M27.2 - Inflammatory conditions of jaws Status: Acute (3) HTN (hypertension) Code(s): I10 - Essential (primary) hypertension Status: Chronic (4) Type 2 diabetes mellitus Code(s): E11.9 - Type 2 diabetes mellitus without complications Status: Chronic (5) Depression Code(s): F32.9 - Major depressive disorder, single episode, unspecified Status : Chronic - Plan 73-year-old with past history of type 2 diabetes, gastric ulcer, hypertension, and depression, admitted for mandibular abscess and peritonsillar abscess. //Peritonsillar and mandibular abscess -WMuch improved today per patient report -ENT on board - attempted needle aspiration on 07/02 with very little fluid return -Gram stain/culture and fungal smear/culture pending -Blood cultures pending negative x3 days -Continue Decadron 10mg q8h IV -Continue mechanical soft diet with Glucerna shakes BID = Patient doing better. Drinking triglycerides with every meal. Continue antibiotics as per infectious disease. Gram-positive cocci on needle aspiration from 07/02. Follow-up sensitivities. Discontinue steroids as per ENT. Continue to monitor closely. = 07/05. Worsening swelling left face. Levaquin has been added by infectious disease. CT as well as ultrasound pending. Appreciate ENT/ID assistance. = 07/06. CT shows loculated fluid collection left neck. Discussed with infectious disease, excellent facial surgery who says this is not a tooth problem, ENT who saw patient previously, as well as have contacted in place consult for ENT special weapons and tactics officer today. = 07/07. Discussed with ENT. Patient planned for aspiration this afternoon around 3 PM. Appreciate ENT assistance. Will consult wound care nurse as per ENT recommendations. Appreciate assistance. Follow-up cultures after aspiration. ID following. = 07/08. Follow-up cultures from incision and drainage yesterday. Appreciate ENT assistance. White blood cell count is up in the 20s likely reactive secondary to incision and drainage. No fevers. Continue to monitor. ID following. Follow-up cultures. = 07/09. Cultures from repeat drainage still negative. Continue to follow. //Type 2 diabetes -SSI w/ accuchecks -After steroids was started, blood glucose increased to 286 -Needed 12 units SSI in the last 24 hrs which represents a big increase from previous -Consider starting Levemir tonight as long as patient is eating well = Glucose in the 300s. Steroids will be discontinued. Adjust insulin sliding scale. Discussed with nurse. = Glucose acceptable. Continue current regimen //HTN -BP has improved to a high of low 150's systolic -Continue Amlodipine 10mg PO daily and Lisinopril 40mg PO daily -Clonidine per protocol = Blood pressure acceptable. Continue to monitor. //Gastric Ulcer -Continue Protonix //Depression -Continue home paroxetine //Unintentional weight loss -Patient and spouse report unintenional weight loss of at least 18 lbs over a 6- month period -Abnormal neutrophils, plasma cells, and metamyelocytes identified on CBC differential as well as elevated platelets of 850 -Need to rule out CML = 07/06. Peripheral smear with some abnormalities, however likely reactive. secondary to Infectious process until proven otherwise //Continue Lovenox for DVT prophylaxis Discussed Condition With: Patient, spouse, and patient's nurse Discharge Planning: Pending ENT, ID clearance. (3) HTN (hypertension) Qualifiers: Hypertension type: essential hypertension Qualified Code(s): I10 - Essential (primary) hypertension (4) Type 2 diabetes mellitus Qualifiers: Diabetes mellitus assisted insulin use: without assisted use Diabetes mellitus complication status: with unspecified complications Qualified Code(s) : E11.8 - Type 2 diabetes mellitus with unspecified complications (5) Depression Qualifiers: Depression Type: major depressive disorder Major depression recurrence: recurrent Active/Remission status: in partial remission Qualified Code(s): F33.41 - Major depressive disorder, recurrent, in partial remission
[2018-07-09 09:48] LABS: Blood Urea Nitrogen 10 mg/dL (7-18); Glomerular Filtration Rate Greater Than 89 mL/min (>89)
[2018-07-09] MEDS: Lisinopril 20 MG Tablet PO SCH (09:57)
[2018-07-09 10:10] LABS: Eosinophils 2 % (0-4); Lymphocytes 22 % (9-44); Monocytes 2 % (0-8); Myelocytes 1 % (0-0)
[2018-07-09 10:11] LABS: Acanthocytes Occ; Ovalocytes 2+
[2018-07-09] MEDS ORDERED: [UNRECOGNIZED DRUG - REMARK] OTHER SCH (15:45)
[2018-07-10] MEDS: Vancomycin Inj 1,000 MG in Sodium Chlor 0.9% Inj 250 ML IV.SIG SCH ×2 (03:39→15:20)
[2018-07-10] MEDS ORDERED: Pharmacy Ordered Lab Info OTHER ONE (03:45)
[2018-07-10] MEDS: amLODIPine 5 MG Tablet PO SCH (08:43)
[2018-07-10] MEDS: Insulin NovoLOG Aspart Correctional Sugar Inj SQ SCH ×4 (08:44→20:15)
[2018-07-10] MEDS: Senna/Docusate Sodium 8.6/50 MG Tablet PO SCH ×2 (08:44→20:14)
[2018-07-10] MEDS: Insulin Detemir Inj 1,000 UNIT/10 ML Vial SQ SCH ×2 (08:44→20:15)
[2018-07-10] MEDS: Lisinopril 20 MG Tablet PO SCH (08:49)
[2018-07-10 09:12] LABS: Baso # (Auto) 0.1 th/mm3 (0.0-0.2); Baso % (Auto) 0.5 % (0.0-2.0); Eos # (Auto) 0.1 th/mm3 (0.0-0.4); Eos % (Auto) 0.9 % (0.0-4.0); Hematocrit 26.9 % (39.0-51.0); Hemoglobin 8.8 gm/dL (13.0-17.0); Lymph # (Auto) 3.3 th/mm3 (1.0-4.8); Lymph % (Auto) 21.6 % (9.0-44.0); Mean Corpuscular HGB Conc 32.8 % (32.0-36.0); Mean Corpuscular Volume 94.6 fL (80.0-100.0); Mean Platelet Volume 9.1 fL (7.0-11.0); Mono # (Auto) 0.9 th/mm3 (0.0-0.9); Mono % (Auto) 5.6 % (0.0-8.0); Neut # (Auto) 10.8 th/mm3 (1.8-7.7); Neut % (Auto) 71.4 % (16.0-70.0); Platelet Count 752 th/mm3 (150-450); Red Blood Count 2.85 mil/mm3 (4.50-5.90); Red Cell Distribution Width 19.6 % (11.6-17.2); White Blood Count 15.1 th/mm3 (4.0-11.0)
--- NOTE | 2018-07-10 09:20 | P.PNIM ---
Subjective Interval history: Patient says he is feeling right. Reports neck pain is under control. Denies any difficulty swallowing. Denies any chest pain or shortness of breath. Physical Exam Vital signs: Vital Signs 07/09/18 12:00 07/09/18 16:00 07/09/18 20:00 Temperature 98.2 F 97.5 F L 97.9 F Pulse Rate 67 53 L 65 Respiratory Rate 19 18 16 Blood Pressure 129/61 141/77 H 149/69 H Pulse Oximetry 96 97 96 07/10/18 00:00 07/10/18 04:00 07/10/18 08:00 Temperature 98.0 F 98.2 F 97.8 F Pulse Rate 86 62 70 Respiratory Rate 16 18 18 Blood Pressure 147/72 H 150/71 H 152/74 H Pulse Oximetry 95 92 L 94 L Intake & Output 07/09/18 07/10/18 07/10/18 18:59 06:59 18:59 Intake Total 1820 / 1820 250 / 250 Balance 1820 / 1820 250 / 250 Weight 71.1 kg Intake: IV 1100 / 1100 250 / 250 Diflucan 400 mg Premix Bag 200 200 / 200 ML @ 100 mls/hr IV.SIG Q24H [facility] Rx#:[id number] LR 1000 mL Inj 1,000 ML @ 80 500 / 500 mls/hr IV.SIG .[id number] [facility] Rx#: [id number] Levaquin 750 mg Premix Inj 150 150 / 150 ML @ 100 mls/hr IV.SIG Q24H [facility] Rx#:[id number] Vancomycin Inj 1,000 MG In NS 250 / 250 250 / 250 Inj 250 ML @ 250 mls/hr IV.SIG Q12H [facility]AR Rx#:[id number] Oral 720 / 720 Other: # Voids 5 Narrative: GENERAL: Sitting up in bed. Appears comfortable. SKIN: Warm and dry. HEAD: Normocephalic. EYES: No scleral icterus. No injection or drainage. NECK: trachea midline. No JVD. Left-sided cervical incision is dressed. Drainage has decreased. CARDIOVASCULAR: Regular rate and rhythm without murmurs, gallops, or rubs. RESPIRATORY: Breath sounds equal bilaterally. No accessory muscle use. GASTROINTESTINAL: Abdomen soft, non-tender, nondistended. MUSCULOSKELETAL: No cyanosis, or edema. BACK: Nontender without obvious deformity. No CVA tenderness. Results - Labs CBC & Chem 7: 07/10/18 08:51 07/09/18 06:30 Laboratory Results - last 24 hr 07/09/18 07/09/18 07/09/18 06:30 06:30 12:22 WBC 18.0 H RBC 2.76 L Hgb 8.6 L Hct 26.2 L MCV 94.8 MCH 31.1 MCHC 32.8 RDW 20.2 H Plt Count 740 H MPV 9.5 Prelim Diff (Auto) Slide review pending Neut % (Auto) 71.7 H Lymph % (Auto) 22.4 [place] % (Auto) 5.0 Eos % (Auto) 0.6 Baso % (Auto) 0.3 Neut # (Auto) 12.9 H Lymph # (Auto) 4.0 [place] # (Auto) 0.9 Eos # (Auto) 0.1 Baso # (Auto) 0.0 WBC Differential Manual diff final Seg Neuts % (Manual) 71 H Band Neuts % (Manual) 2 Lymphocytes % (Manual) 22 Monocytes % (Manual) 2 Eosinophils % (Manual) 2 Myelocytes % (Man) 1 H Abs Neuts (Manual) 13.3 H Differential Comment . Platelet Estimate High H Platelet Morphology Enlarged H Ovalocytes 2+ H Acanthocytes (Spur) Occ H Keratocytes Occ H BUN 10 Creatinine 0.78 Estimated GFR Greater than 89 POC Glucose 196 H Vancomycin Trough 07/09/18 07/09/18 07/10/18 16:44 20:40 03:35 WBC RBC Hgb Hct MCV MCH MCHC RDW Plt Count MPV Prelim Diff (Auto) Neut % (Auto) Lymph % (Auto) [place] % (Auto) Eos % (Auto) Baso % (Auto) Neut # (Auto) Lymph # (Auto) [place] # (Auto) Eos # (Auto) Baso # (Auto) WBC Differential Seg Neuts % (Manual) Band Neuts % (Manual) Lymphocytes % (Manual) Monocytes % (Manual) Eosinophils % (Manual) Myelocytes % (Man) Abs Neuts (Manual) Differential Comment Platelet Estimate Platelet Morphology Ovalocytes Acanthocytes (Spur) Keratocytes BUN Creatinine Estimated GFR POC Glucose 261 H 171 H Vancomycin Trough 10.6 H 07/10/18 08:51 WBC 15.1 H RBC 2.85 L Hgb 8.8 L Hct 26.9 L MCV 94.6 MCH 31.0 MCHC 32.8 RDW 19.6 H Plt Count 752 H MPV 9.1 Prelim Diff (Auto) Slide review pending Neut % (Auto) 71.4 H Lymph % (Auto) 21.6 [place] % (Auto) 5.6 Eos % (Auto) 0.9 Baso % (Auto) 0.5 Neut # (Auto) 10.8 H Lymph # (Auto) 3.3 [place] # (Auto) 0.9 Eos # (Auto) 0.1 Baso # (Auto) 0.1 WBC Differential Seg Neuts % (Manual) Band Neuts % (Manual) Lymphocytes % (Manual) Monocytes % (Manual) Eosinophils % (Manual) Myelocytes % (Man) Abs Neuts (Manual) Differential Comment . Platelet Estimate Platelet Morphology Ovalocytes Acanthocytes (Spur) Keratocytes BUN Creatinine Estimated GFR POC Glucose Vancomycin Trough Microbiology 07/02/18 13:00 Fluid - Other Fungal Smear - Final No fungal elements seen 07/02/18 13:00 Fluid - Other Fungal Culture - Preliminary No growth in 1 week 07/07/18 16:08 Abscess - Neck Gram Stain - Final 07/07/18 16:08 Abscess - Neck Wound Culture - Preliminary Assessment and Plan - Assessment (1) Peritonsillar abscess Code(s): J36 - Peritonsillar abscess Status: Acute (2) Mandibular abscess Code(s): M27.2 - Inflammatory conditions of jaws Status: Acute (3) HTN (hypertension) Code(s): I10 - Essential (primary) hypertension Status: Chronic (4) Type 2 diabetes mellitus Code(s): E11.9 - Type 2 diabetes mellitus without complications Status: Chronic (5) Depression Code(s): F32.9 - Major depressive disorder, single episode, unspecified Status : Chronic - Plan 73-year-old with past history of type 2 diabetes, gastric ulcer, hypertension, and depression, admitted for mandibular abscess and peritonsillar abscess. //Peritonsillar and mandibular abscess -WMuch improved today per patient report -ENT on board - attempted needle aspiration on 07/02 with very little fluid return -Gram stain/culture and fungal smear/culture pending -Blood cultures pending negative x3 days -Continue Decadron 10mg q8h IV -Continue mechanical soft diet with Glucerna shakes BID = Patient doing better. Drinking triglycerides with every meal. Continue antibiotics as per infectious disease. Gram-positive cocci on needle aspiration from 07/02. Follow-up sensitivities. Discontinue steroids as per ENT. Continue to monitor closely. = 07/05. Worsening swelling left face. Levaquin has been added by infectious disease. CT as well as ultrasound pending. Appreciate ENT/ID assistance. = 07/06. CT shows loculated fluid collection left neck. Discussed with infectious disease, excellent facial surgery who says this is not a tooth problem, ENT who saw patient previously, as well as have contacted in place consult for ENT director business integration today. = 07/07. Discussed with ENT. Patient planned for aspiration this afternoon around 3 PM. Appreciate ENT assistance. Will consult wound care nurse as per ENT recommendations. Appreciate assistance. Follow-up cultures after aspiration. ID following. = 07/08. Follow-up cultures from incision and drainage yesterday. Appreciate ENT assistance. White blood cell count is up in the 20s likely reactive secondary to incision and drainage. No fevers. Continue to monitor. ID following. Follow-up cultures. = 07/09. Cultures from repeat drainage still negative. Continue to follow. = 07/10. Cultures all negative. White blood cell count improving to 15 however. Continue IV antibiotics and follow-up cultures. //Type 2 diabetes -SSI w/ accuchecks -After steroids was started, blood glucose increased to 286 -Needed 12 units SSI in the last 24 hrs which represents a big increase from previous -Consider starting Levemir tonight as long as patient is eating well = Glucose in the 300s. Steroids will be discontinued. Adjust insulin sliding scale. Discussed with nurse. = Glucose acceptable. Continue current regimen //HTN -BP has improved to a high of low 150's systolic -Continue Amlodipine 10mg PO daily and Lisinopril 40mg PO daily -Clonidine per protocol = Blood pressure acceptable. Continue to monitor. //Gastric Ulcer -Continue Protonix //Depression -Continue home paroxetine //Unintentional weight loss -Patient and spouse report unintenional weight loss of at least 18 lbs over a 6- month period -Abnormal neutrophils, plasma cells, and metamyelocytes identified on CBC differential as well as elevated platelets of 850 -Need to rule out CML = 07/06. Peripheral smear with some abnormalities, however likely reactive. secondary to Infectious process until proven otherwise //Continue Lovenox for DVT prophylaxis Discussed Condition With: Patient, spouse, and patient's nurse Discharge Planning: May need home health for dressing changes. Pending ENT, ID clearance. (3) HTN (hypertension) Qualifiers: Hypertension type: essential hypertension Qualified Code(s): I10 - Essential (primary) hypertension (4) Type 2 diabetes mellitus Qualifiers: Diabetes mellitus intermediate accountant insulin use: without mcc use Diabetes mellitus complication status: with unspecified complications Qualified Code(s) : E11.8 - Type 2 diabetes mellitus with unspecified complications (5) Depression Qualifiers: Depression Type: major depressive disorder Major depression recurrence: recurrent Active/Remission status: in partial remission Qualified Code(s): F33.41 - Major depressive disorder, recurrent, in partial remission
--- NOTE | 2018-07-10 09:22 | P.DCO ---
- Physical Therapy Order: Evaluate and treat - Home Health Nursing Order: Wound care and dressing changes Instructions: Patient will need twice daily wet-to-dry dressings of left neck as per ENT recommendations. - Certification I have seen patient Brenda Armando on 07/10/18. My clinical findings support the need for the requested home health care services because: Limited ability to care for self I certify that my clinical findings support that this patient is homebound because: Unsteady gait/balance
[2018-07-10 09:46] LABS: Anion Gap 7 meq/L (5-15); Blood Urea Nitrogen 9 mg/dL (7-18); Calcium 9.1 mg/dL (8.5-10.1); Carbon Dioxide 31.4 meq/L (21.0-32.0); Chloride 105 meq/L (98-107); Glomerular Filtration Rate Greater Than 89 mL/min (>89); Glucose,Random 184 mg/dL (74-106); Magnesium 1.7 mg/dL (1.5-2.5); Potassium 3.9 meq/L (3.5-5.1); Sodium 143 meq/L (136-145)
[2018-07-10 09:47] LABS: Phosphorus 3.2 mg/dL (2.5-4.9)
[2018-07-10 10:02] LABS: Eosinophils 1 % (0-4); Lymphocytes 21 % (9-44); Metamyelocytes 1 % (0-1); Monocytes 2 % (0-8); Myelocytes 1 % (0-0); Tallied Nucleated RBC 1 (0-0)
[2018-07-10 10:03] LABS: Ovalocytes 2+
[2018-07-10] MEDS: Acetaminophen 325 MG Tablet PO PRN (22:50)
[2018-07-11] MEDS: Vancomycin Inj 1,000 MG in Sodium Chlor 0.9% Inj 250 ML IV.SIG SCH ×2 (03:27→17:16)
[2018-07-11 05:15] LABS: Blood Urea Nitrogen 11 mg/dL (7-18); Glomerular Filtration Rate Greater Than 89 mL/min (>89)
[2018-07-11] MEDS: amLODIPine 5 MG Tablet PO SCH (09:26)
[2018-07-11] MEDS: Senna/Docusate Sodium 8.6/50 MG Tablet PO SCH (09:29)
[2018-07-11] MEDS: Insulin NovoLOG Aspart Correctional Sugar Inj SQ SCH ×2 (09:30→13:22)
[2018-07-11] MEDS: Insulin Detemir Inj 1,000 UNIT/10 ML Vial SQ SCH (09:54)
[2018-07-11] MEDS: Lisinopril 20 MG Tablet PO SCH (10:15)
--- NOTE | 2018-07-11 10:27 | P.PNIM ---
Subjective Interval history: Patient says he is feeling right. Denies any chest pain shortness of breath. Denies nausea vomiting. Reports pain is controlled. Feels like going home. Physical Exam Vital signs: Vital Signs 07/10/18 12:00 07/10/18 16:00 07/10/18 20:00 Temperature 97.9 F 97.9 F 97.9 F Pulse Rate 58 L 61 60 Respiratory Rate 18 18 16 Blood Pressure 131/62 140/70 148/72 H Pulse Oximetry 95 95 95 07/11/18 00:00 07/11/18 04:00 07/11/18 08:00 Temperature 98.6 F 98.6 F 97.9 F Pulse Rate 58 L 52 L 60 Respiratory Rate 16 16 18 Blood Pressure 134/64 140/68 135/62 Pulse Oximetry 95 94 L 97 Intake & Output 07/10/18 07/11/18 07/11/18 18:59 06:59 18:59 Intake Total 1100 / 1100 690 / 690 Output Total 500 / 500 Balance 1100 / 1100 190 / 190 Weight 69.1 kg Intake: IV 400 / 400 450 / 450 Diflucan 400 mg Premix Bag 200 0 / 0 200 / 200 ML @ 100 mls/hr IV.SIG Q24H [facility] Rx#:[id number] Levaquin 750 mg Premix Inj 150 150 / 150 ML @ 100 mls/hr IV.SIG Q24H [facility] Rx#:[id number] Vancomycin Inj 1,000 MG In NS 250 / 250 250 / 250 Inj 250 ML @ 250 mls/hr IV.SIG Q12H [facility] Rx#:[id number] Oral 700 / 700 240 / 240 Output: Urine 500 / 500 Other: # Voids 3 Date of Last Bowel Movement 07/10/18 # Bowel Movements 0 Narrative: GENERAL: Sitting up in bed. Appears comfortable. SKIN: Warm and dry. HEAD: Normocephalic. EYES: No scleral icterus. No injection or drainage. NECK: trachea midline. No JVD. Left-sided cervical incision is dressed. No drainage noted today. CARDIOVASCULAR: Regular rate and rhythm without murmurs, gallops, or rubs. RESPIRATORY: Breath sounds equal bilaterally. No accessory muscle use. GASTROINTESTINAL: Abdomen soft, non-tender, nondistended. MUSCULOSKELETAL: No cyanosis, or edema. BACK: Nontender without obvious deformity. No CVA tenderness. Results - Labs CBC & Chem 7: 09/09/18 08:51 07/11/18 04:38 Laboratory Results - last 24 hr 07/10/18 07/10/18 07/10/18 11:37 17:01 20:13 BUN Creatinine Estimated GFR POC Glucose 149 H 243 H 252 H 07/11/18 07/11/18 04:38 07:31 BUN 11 Creatinine 0.89 Estimated GFR Greater than 89 POC Glucose 170 H Assessment and Plan - Assessment (1) Peritonsillar abscess Code(s): J36 - Peritonsillar abscess Status: Acute (2) Mandibular abscess Code(s): M27.2 - Inflammatory conditions of jaws Status: Acute (3) HTN (hypertension) Code(s): I10 - Essential (primary) hypertension Status: Chronic (4) Type 2 diabetes mellitus Code(s): E11.9 - Type 2 diabetes mellitus without complications Status: Chronic (5) Depression Code(s): F32.9 - Major depressive disorder, single episode, unspecified Status : Chronic - Plan 73-year-old with past history of type 2 diabetes, gastric ulcer, hypertension, and depression, admitted for mandibular abscess and peritonsillar abscess. //Peritonsillar and mandibular abscess -WMuch improved today per patient report -ENT on board - attempted needle aspiration on 07/02 with very little fluid return -Gram stain/culture and fungal smear/culture pending -Blood cultures pending negative x3 days -Continue Decadron 10mg q8h IV -Continue mechanical soft diet with Glucerna shakes BID = Patient doing better. Drinking triglycerides with every meal. Continue antibiotics as per infectious disease. Gram-positive cocci on needle aspiration from 07/02. Follow-up sensitivities. Discontinue steroids as per ENT. Continue to monitor closely. = 07/05. Worsening swelling left face. Levaquin has been added by infectious disease. CT as well as ultrasound pending. Appreciate ENT/ID assistance. = 07/06. CT shows loculated fluid collection left neck. Discussed with infectious disease, excellent facial surgery who says this is not a tooth problem, ENT who saw patient previously, as well as have contacted in place consult for ENT guard immigration today. = 07/07. Discussed with ENT. Patient planned for aspiration this afternoon around 3 PM. Appreciate ENT assistance. Will consult wound care nurse as per ENT recommendations. Appreciate assistance. Follow-up cultures after aspiration. ID following. = 07/08. Follow-up cultures from incision and drainage yesterday. Appreciate ENT assistance. White blood cell count is up in the 20s likely reactive secondary to incision and drainage. No fevers. Continue to monitor. ID following. Follow-up cultures. = 07/09. Cultures from repeat drainage still negative. Continue to follow. = 07/10. Cultures all negative. White blood cell count improving to 15 however. Continue IV antibiotics and follow-up cultures. = 07/11. Cultures continue negative. Await infectious disease recommendations. Appreciate assistance. //Type 2 diabetes -SSI w/ accuchecks -After steroids was started, blood glucose increased to 286 -Needed 12 units SSI in the last 24 hrs which represents a big increase from previous -Consider starting Levemir tonight as long as patient is eating well = Glucose in the 300s. Steroids will be discontinued. Adjust insulin sliding scale. Discussed with nurse. = Glucose acceptable. Continue current regimen //HTN -BP has improved to a high of low 150's systolic -Continue Amlodipine 10mg PO daily and Lisinopril 40mg PO daily -Clonidine per protocol = Blood pressure acceptable. Continue to monitor. //Gastric Ulcer -Continue Protonix //Depression -Continue home paroxetine //Unintentional weight loss -Patient and spouse report unintenional weight loss of at least 18 lbs over a 6- month period -Abnormal neutrophils, plasma cells, and metamyelocytes identified on CBC differential as well as elevated platelets of 850 -Need to rule out CML = 07/06. Peripheral smear with some abnormalities, however likely reactive. secondary to Infectious process until proven otherwise //Continue Lovenox for DVT prophylaxis Discussed Condition With: Patient, spouse, and patient's nurse Discharge Planning: May need home health for dressing changes. Pending ENT, ID clearance. (3) HTN (hypertension) Qualifiers: Hypertension type: essential hypertension Qualified Code(s): I10 - Essential (primary) hypertension (4) Type 2 diabetes mellitus Qualifiers: Diabetes mellitus terminal worker insulin use: without terminal worker use Diabetes mellitus complication status: with unspecified complications Qualified Code(s) : E11.8 - Type 2 diabetes mellitus with unspecified complications (5) Depression Qualifiers: Depression Type: major depressive disorder Major depression recurrence: recurrent Active/Remission status: in partial remission Qualified Code(s): F33.41 - Major depressive disorder, recurrent, in partial remission
--- NOTE | 2018-07-11 11:58 | P.PNID ---
Subjective Remarks: Patient feels better. Swelling at the left mandible has decreased significantly. Dressing in place with packing at the left mandible post incision. Denies difficulty swallowing, no trouble handling oral secretions. No neck stiffness. White blood cell count remained elevated but is lower. Afebrile. Wound culture has no growth. 73-year-old white male who developed pain and fever and chills and altered mental status and presented to the emergency department for evaluation. The patient was noted to have swelling of the left mandible and was felt to have a peritonsillar and mandibular abscess. CT scan of the face was performed on 06/29/2018 because of swelling of the jaw and there was an elongated rim-enhancing collection involving the left nasopharyngeal and oropharyngeal region characteristic of a peritonsillar abscess extending over several centimeters and an abscess noted at the left submandibular gland with adjacent reactive adenopathy. Past Medical History: PAST MEDICAL HISTORY: Diabetes mellitus, depression, gastric ulcer, hypertension, right knee arthroscopy. Allergies/Adverse Reactions: Allergies No Known Allergies Allergy (Unverified 06/29/18 11:11) Objective Vital Signs 07/10/18 12:00 07/10/18 16:00 07/10/18 20:00 Temperature 97.9 F 97.9 F 97.9 F Pulse Rate 58 L 61 60 Respiratory Rate 18 18 16 Blood Pressure 131/62 140/70 148/72 H Pulse Oximetry 95 95 95 07/11/18 00:00 07/11/18 04:00 07/11/18 08:00 Temperature 98.6 F 98.6 F 97.9 F Pulse Rate 58 L 52 L 60 Respiratory Rate 16 16 18 Blood Pressure 134/64 140/68 135/62 Pulse Oximetry 95 94 L 97 Intake & Output 07/10/18 07/11/18 07/11/18 18:59 06:59 18:59 Intake Total 1100 / 1100 690 / 690 Output Total 500 / 500 Balance 1100 / 1100 190 / 190 Weight 69.1 kg Intake: IV 400 / 400 450 / 450 Diflucan 400 mg Premix Bag 200 0 / 0 200 / 200 ML @ 100 mls/hr IV.SIG Q24H [facility] Rx#:[id number] Levaquin 750 mg Premix Inj 150 150 / 150 ML @ 100 mls/hr IV.SIG Q24H [facility] Rx#:[id number] Vancomycin Inj 1,000 MG In NS 250 / 250 250 / 250 Inj 250 ML @ 250 mls/hr IV.SIG Q12H [facility] Rx#:[id number] Oral 700 / 700 240 / 240 Output: Urine 500 / 500 Other: # Voids 3 Date of Last Bowel Movement 07/10/18 # Bowel Movements 0 07/02/18 13:00 Fluid - Other Fungal Smear - Final No fungal elements seen 07/02/18 13:00 Fluid - Other Fungal Culture - Preliminary No growth in 1 week 07/07/18 16:08 Abscess - Neck Gram Stain - Final 07/07/18 16:08 Abscess - Neck Wound Culture - Preliminary 07/07/18 16:08 Abscess - Neck Acid Fast Bacilli Smear - Final No acid fast bacilli seen 07/07/18 16:08 Abscess - Neck Mycobacterial Culture - Pending 07/07/18 16:08 Abscess - Neck Fungal Smear - Final No fungal elements seen 07/07/18 16:08 Abscess - Neck Fungal Culture - Pending Lab - Hematology Results 07/10/18 08:51 WBC 15.1 H RBC 2.85 L Hgb 8.8 L Hct 26.9 L MCV 94.6 MCH 31.0 MCHC 32.8 RDW 19.6 H Plt Count 752 H MPV 9.1 Prelim Diff (Auto) Slide review pending Neut % (Auto) 71.4 H Lymph % (Auto) 21.6 [place] % (Auto) 5.6 Eos % (Auto) 0.9 Baso % (Auto) 0.5 Neut # (Auto) 10.8 H Lymph # (Auto) 3.3 [place] # (Auto) 0.9 Eos # (Auto) 0.1 Baso # (Auto) 0.1 WBC Differential Manual diff final Seg Neuts % (Manual) 70 Band Neuts % (Manual) 4 Lymphocytes % (Manual) 21 Monocytes % (Manual) 2 Eosinophils % (Manual) 1 Metamyelocytes % (Man) 1 Myelocytes % (Man) 1 H Abs Neuts (Manual) 11.5 H Nucleated RBCs/100 WBC 1 H Differential Comment . Platelet Estimate High H Platelet Morphology Enlarged H Ovalocytes 2+ H Keratocytes Occ H Lab - Chemistry Results 07/09/18 07/09/18 07/09/18 12:22 16:44 20:40 Sodium Potassium Chloride Carbon Dioxide Anion Gap BUN Creatinine Estimated GFR POC Glucose 196 H 261 H 171 H Random Glucose Calcium Phosphorus Magnesium Albumin 07/10/18 07/10/18 07/10/18 08:51 11:37 17:01 Sodium 143 Potassium 3.9 Chloride 105 Carbon Dioxide 31.4 Anion Gap 7 BUN 9 Creatinine 0.85 Estimated GFR Greater than 89 POC Glucose 149 H 243 H Random Glucose 184 H Calcium 9.1 Phosphorus 3.2 Magnesium 1.7 Albumin 3.0 L 07/10/18 07/11/18 07/11/18 20:13 04:38 07:31 Sodium Potassium Chloride Carbon Dioxide Anion Gap BUN 11 Creatinine 0.89 Estimated GFR Greater than 89 POC Glucose 252 H 170 H Random Glucose Calcium Phosphorus Magnesium Albumin Imaging: ITS Impressions Face CT 06/29/18 11:18 CONCLUSION: 1. There is an elongated rim-enhancing collection involving the left nasopharyngeal and oropharyngeal region characteristic of a peritonsillar abscess extending over several centimeters. 2. Is also an abscess is suspected in the region of the left submandibular gland with adjacent reactive adenopathy. Neck Ultrasound 07/02/18 00:00 CONCLUSION: 1. Small irregular fluid collection in the left submandibular region nonspecific, however possibility of abscess should be entertained. Soft Tissue Neck CT 07/05/18 00:00 CONCLUSION: 1. Complex fluid collection within the left submandibular region measuring 4.1 x 3.7 cm which is indeterminate. Abscess remains in the differential. Necrotic mass is also in the differential but is less likely. Clinical correlation is recommended. There is asymmetric swelling of the left tonsillar pillar and swelling of the left aryepiglottic folds also. Physical Exam: PHYSICAL EXAMINATION: GENERAL: Awake and alert. HEENT: The head is atraumatic. Dressing in place at the left neck. Significant decrease in size of the swelling at the left mandible/neck no erythema. Extraocular movements grossly intact. Pupils reactive to light. No icterus. Oropharynx moist mucosa without lesions. NECK: Supple without adenopathy. LUNGS: Clear breath sounds. HEART: Regular S1, S2, without murmurs, rubs or gallops. ABDOMEN: Bowel sounds present. Soft, nontender. EXTREMITIES: No clubbing. No cyanosis or edema. SKIN: No rash. NEUROLOGIC: Nonfocal. PSYCHIATRIC: Calm and cooperative. Assessment and Plan - Plan IMPRESSION: 1. Loculated peritonsillar and submandibular abscess. Status post incision and drainage 07/07/2018. 2. Leukocytosis. WBC is lower. 3. Diabetes mellitus. RECOMMENDATIONS: 1. Continue vancomycin. 3. Continue Levaquin. 4. Continue Diflucan. I am awaiting call from microbiology. I discussed the culture result. It looks like he is growing anaerobic bacteria. I think he would be able to go home today with oral antibiotics. However I need to get further info from microbiology to determine which antibiotics to use. When that information is available to me I we will notify Dr. Zamorano on antibiotic choice for outpatient treatment. Per further discussion with microbiology it appears that patient has an anaerobic organism. Recommend changing antibiotic to p.o. Augmentin 500 mg tid and p.o. Flagyl 500mg tid x 10 days for discharge
--- NOTE | 2018-07-11 14:09 | P.DS ---
Date of admission: 06/29/18 14:10 Primary care physician: Jag Cruz III, MD Brief History from admission: This 73-year-old with past history of type 2 diabetes, gastric ulcer, hypertension, and depression. He is presenting to the clinic today 4 days of feeling ill. On 06/25/18 started to develop a sore throat and feeling mildly feverish. Then 06/26/18 his fever greatly worsened and he started to develop some swelling in the back of throat. He reports that before any of this happened he did have some tooth pain on the left side of his face. Over the next several days the swelling in his throat as well as his face continued to worsen. Never became nauseated or vomiting. Started developing difficulty with swallowing, he started becoming mildly confused especially yesterday. Started feeling very weak over the last couple days and unwilling to get out of bed. Has been sweating profusely and feeling feverish. Denies any chills. His voice has become raspy over the last several days. This morning was 1 of the rare times that he actually ate some food over the last couple days. Throughout this process is been getting worsening headaches as well that he attributed to migraines, as well as feeling very sleepy and fatigued throughout the whole timeframe. Of note on the ED CT of the face is concerning for mandibular abscess as well as peritonsillar abscess. DS: Diagnosis - Discharge Diagnosis (1) Peritonsillar abscess Status: Acute (2) Mandibular abscess Status: Acute (3) HTN (hypertension) Status: Chronic (4) Type 2 diabetes mellitus Status: Chronic (5) Depression Status: Chronic DS: Summary Hospital Course: Patient found to have large left cervical abscess on CT as below. ENT was consulted. Infectious disease was consulted. Patient was started on broad- spectrum antibiotics, IV steroids with initial improvement, however upon discontinuation of IV steroids, left cervical swelling worsened. Patient underwent incision and drainage with culture by ENT. Patient doing well, and was cleared for discharge on antibiotics by infectious disease. Patient will need to follow with primary care, ENT as outpatient. For problem-based summary from most recent progress note, please see below. 73-year-old with past history of type 2 diabetes, gastric ulcer, hypertension, and depression, admitted for mandibular abscess and peritonsillar abscess. //Peritonsillar and mandibular abscess -WMuch improved today per patient report -ENT on board - attempted needle aspiration on 07/02 with very little fluid return -Gram stain/culture and fungal smear/culture pending -Blood cultures pending negative x3 days -Continue Decadron 10mg q8h IV -Continue mechanical soft diet with Glucerna shakes BID = Patient doing better. Drinking triglycerides with every meal. Continue antibiotics as per infectious disease. Gram-positive cocci on needle aspiration from 07/02. Follow-up sensitivities. Discontinue steroids as per ENT. Continue to monitor closely. = 07/05. Worsening swelling left face. Levaquin has been added by infectious disease. CT as well as ultrasound pending. Appreciate ENT/ID assistance. = 07/06. CT shows loculated fluid collection left neck. Discussed with infectious disease, excellent facial surgery who says this is not a tooth problem, ENT who saw patient previously, as well as have contacted in place consult for ENT blood bank calendar control clerk today. = 07/07. Discussed with ENT. Patient planned for aspiration this afternoon around 3 PM. Appreciate ENT assistance. Will consult wound care nurse as per ENT recommendations. Appreciate assistance. Follow-up cultures after aspiration. ID following. = 07/08. Follow-up cultures from incision and drainage yesterday. Appreciate ENT assistance. White blood cell count is up in the 20s likely reactive secondary to incision and drainage. No fevers. Continue to monitor. ID following. Follow-up cultures. = 07/09. Cultures from repeat drainage still negative. Continue to follow. = 07/10. Cultures all negative. White blood cell count improving to 15 however. Continue IV antibiotics and follow-up cultures. = 07/11. Cultures continue negative. Await infectious disease recommendations. Appreciate assistance. =dc home on abx as per ID //Type 2 diabetes -SSI w/ accuchecks -After steroids was started, blood glucose increased to 286 -Needed 12 units SSI in the last 24 hrs which represents a big increase from previous -Consider starting Levemir tonight as long as patient is eating well = Glucose in the 300s. Steroids will be discontinued. Adjust insulin sliding scale. Discussed with nurse. = Glucose acceptable. Continue current regimen //HTN -BP has improved to a high of low 150's systolic -Continue Amlodipine 10mg PO daily and Lisinopril 40mg PO daily -Clonidine per protocol = Blood pressure acceptable. Continue to monitor. //Gastric Ulcer -Continue Protonix //Depression -Continue home paroxetine //Unintentional weight loss -Patient and spouse report unintenional weight loss of at least 18 lbs over a 6- month period -Abnormal neutrophils, plasma cells, and metamyelocytes identified on CBC differential as well as elevated platelets of 850 -Need to rule out CML = 9/5. Peripheral smear with some abnormalities, however likely reactive. secondary to Infectious process until proven otherwise //Continue Lovenox for DVT prophylaxis Discussed Condition With: Patient, spouse, and patient's nurse Discharge Planning: May need home health for dressing changes. Pending ENT, ID clearance. - Time Spent with Patient Total time spent providing and/or coordinating discharge services: Greater than 30 minutes - Quality: VTE Deep Vein Thrombosis/Pulmonary Embolism Present on Admission: No Exam Vital signs: Vital Signs 07/10/18 16:00 07/10/18 20:00 07/11/18 00:00 Temperature 97.9 F 97.9 F 98.6 F Pulse Rate 61 60 58 L Respiratory Rate 18 16 16 Blood Pressure 140/70 148/72 H 134/64 Pulse Oximetry 95 95 95 07/11/18 04:00 07/11/18 08:00 07/11/18 12:00 Temperature 98.6 F 97.9 F 98.4 F Pulse Rate 52 L 60 61 Respiratory Rate 16 18 18 Blood Pressure 140/68 135/62 141/72 H Pulse Oximetry 94 L 97 94 L Intake & Output 07/10/18 07/11/18 07/11/18 18:59 06:59 18:59 Intake Total 1100 / 1100 690 / 690 Output Total 500 / 500 Balance 1100 / 1100 190 / 190 Weight 69.1 kg Intake: IV 400 / 400 450 / 450 Diflucan 400 mg Premix Bag 200 0 / 0 200 / 200 ML @ 100 mls/hr IV.SIG Q24H SALAZAR Rx#:[id number] Levaquin 750 mg Premix Inj 150 150 / 150 ML @ 100 mls/hr IV.SIG Q24H SALAZAR Rx#:[id number] Vancomycin Inj 1,000 MG In NS 250 / 250 250 / 250 Inj 250 ML @ 250 mls/hr IV.SIG Q12H SALAZAR Rx#:[id number] Oral 700 / 700 240 / 240 Output: Urine 500 / 500 Other: # Voids 3 Date of Last Bowel Movement 07/10/18 07/11/18 # Bowel Movements 0 Results Procedures completed during hospitalization: Incision and drainage of left neck abscess. Please see report Labs on day of discharge: Labs from last 24 hours 07/11/18 07/11/18 07/10/18 07:31 04:38 20:13 BUN 11 Creatinine 0.89 Estimated GFR Greater than 89 POC Glucose 170 H 252 H 07/10/18 17:01 BUN Creatinine Estimated GFR POC Glucose 243 H Preliminary micro results at discharge 07/02/18 13:00 Fungal Culture - Preliminary Fluid - Other No growth in 1 week 07/07/18 16:08 Wound Culture - Preliminary Abscess - Neck - Impressions ITS Impressions Face CT 06/29/18 11:18 CONCLUSION: 1. There is an elongated rim-enhancing collection involving the left nasopharyngeal and oropharyngeal region characteristic of a peritonsillar abscess extending over several centimeters. 2. Is also an abscess is suspected in the region of the left submandibular gland with adjacent reactive adenopathy. Neck Ultrasound 07/02/18 00:00 CONCLUSION: 1. Small irregular fluid collection in the left submandibular region nonspecific, however possibility of abscess should be entertained. Soft Tissue Neck CT 07/05/18 00:00 CONCLUSION: 1. Complex fluid collection within the left submandibular region measuring 4.1 x 3.7 cm which is indeterminate. Abscess remains in the differential. Necrotic mass is also in the differential but is less likely. Clinical correlation is recommended. There is asymmetric swelling of the left tonsillar pillar and swelling of the left aryepiglottic folds also. Discharge Plan - Discharge Disposition Patient Disposition: 01 Discharge Home - Discharge Condition Condition: Good - Discharge Order Discharge Orders: Discharge Order (Routine); Ordered 07/11/18 Ordered By: Munir Zamorano - Discharge Details Anticipated Discharge Date: 07/11/18 - Physicians Team Primary Care Provider: Jag Cruz III Attending Provider: Munir Zamorano Other Providers: Ran Sofia MD ; Tang Berg DDS ; Sancho Pizano MD ; Lico Wang MD
== END 2018-07-11 16:55 | disposition home or self-care (01) ==
LOC: EDSEX → NEPE 10:48 → NEDA 14:10 → N04 17:31
PROVIDERS: ADMIT Internal Medicine; ATTEND Internal Medicine